=== PATIENT | female | born 1950 | race Caucasian/White ===

== ENCOUNTER 2020-08-04 12:38 | Emergency (ER) | payer OTHER ==
[2020-08-04 18:32] LABS: Absolute Lymphocytes (CBC) 1.3 K/uL (0.7-4.9); Basophils % 0.7 % (0-1.3); Hematocrit 45.8 % (36.0-45.0); Lymphocytes % 15.6 % (15.3-44.8); MPV 9.8 fL (7.6-11.3); RBC Red Blood Cell Count 5.09 M/uL (3.86-4.86)
[2020-08-04 18:53] LABS: Albumin 3.4 g/dL (3.4-5.0); Bilirubin Direct 0.2 mg/dL (0-0.2); Protein, Total 7.8 g/dL (6.4-8.2)
--- NOTE | 2020-08-04 20:57 | ER ---
Nurse's Notes [facility] Name: Vidya Colón Age: 70 yrs Sex: Female : 1950 Arrival Date: 08/04/2020 Time: 12:44 Bed 19 Private MD: Diagnosis: Groin Pain;Subacute L2 compression fracture Presentation: 08/04 12:45 Chief complaint: EMS states: "her son found her on the floor in front of her chair, jd3 unknown fall down town. no LOC. weakness in both legs. pain reported to both hips. son reports normal mentation. no hit to head.". Coronavirus screen: At this time, the client does not indicate any symptoms associated with coronavirus-19. Ebola Screen: Patient negative for fever greater than or equal to 101.5 degrees Fahrenheit, and additional compatible Ebola Virus Disease symptoms. Initial Sepsis Screen: Does the patient meet any 2 criteria? No. Patient's initial sepsis screen is negative. Does the patient have a suspected source of infection? No. Patient's initial sepsis screen is negative. Risk Assessment: Do you want to hurt yourself or someone else? Patient reports no desire to harm self or others. Onset of symptoms was August 04, 2020. 12:45 Method Of Arrival: EMS: [facility] jd3 12:45 Acuity: NITA 3 jd3 Historical: - Allergies: 12:50 Sulfa (Sulfonamide Antibiotics); jd3 - Home Meds: 12:50 amlodipine oral [Active]; duloxetine oral oral [Active]; Meclizine Oral [Active]; jd3 sotalol Oral [Active]; Warfarin Oral [Active]; - Immunization history:: Adult Immunizations unknown. - Social history:: Smoking status: unknown. Screenin:45 Abuse screen: Denies threats or abuse. Denies injuries from another. Tuberculosis bp screening: No symptoms or risk factors identified. Primary Survey: 12:53 NO uncontrolled hemorrhage observed. A: The patient is alert. Airway: patent. jd3 Breathing/Chest: Respiratory pattern: regular, Respiratory effort: spontaneous. Circulation: Skin color: pink, Skin temperature: warm. Disability Alert. Exposure/Environment: There is no evidence of uncontrolled external bleeding. No obvious injuries are noted at this time. Assessment: 17:45 General: Appears in no apparent distress. uncomfortable, Behavior is cooperative, bp appropriate for age, anxious, RECD PT VIA W/C FROM TRIAGE. Pain: Complains of pain in pelvis. Neuro: No deficits noted. EENT: No deficits noted. Cardiovascular: No deficits noted. Respiratory: No deficits noted. GI: No signs and/or symptoms were reported involving the gastrointestinal system. : No signs and/or symptoms were reported regarding the genitourinary system. Derm: No deficits noted. Musculoskeletal: Reports pain in pelvis. Vital Signs: 12:51 BP 158 / 94; Pulse 100; Resp 18 S; Temp 97.4(TE); Pulse Ox 98% on R/A; Pain 6/10; jd3 18:00 BP 159 / 98; Pulse 107; Resp 16; Pulse Ox 95% ; bp Indira Coma Score: 12:54 Eye Response: spontaneous(4). Verbal Response: oriented(5). Motor Response: obeys jd3 commands(6). Total: 15. Trauma Score (Adult): 12:54 Eye Response: spontaneous(1); Verbal Response: oriented(1); Motor Response: obeys jd3 commands(2); Systolic BP: > 89 mm Hg(4); Respiratory Rate: 10 to 29 per min(4); Indira Score: 15; Trauma Score: 12 ED Course: 12:44 Patient arrived in ED. jd3 12:48 Triage completed. jd3 12:52 Arm band placed on. jd3 17:42 Andrew Irby PA is PHCP. m 17:42 Colby Jarrell MD is Attending Physician. jmm 17:45 Patient has correct armband on for positive identification. Bed in low position. Call bp light in reach. Side rails up X2. 17:45 Patient maintains SpO2 saturation greater than 95% on room air. Thermoregulation: warm bp blanket given to patient. 17:47 Brian Walker, RN is Primary Nurse. bp 19:14 CT Abd/Pelvis - IV Contrast Only In Process Unspecified. EDMS 22:48 No provider procedures requiring assistance completed. IV discontinued, intact, ll2 bleeding controlled, No redness/swelling at site. Pressure dressing applied. Administered Medications: 21:00 Drug: morphine 2 mg Route: IVP; Site: right antecubital; ll2 21:00 Drug: Zofran (Ondansetron) 4 mg Route: IVP; Site: right antecubital; ll2 Outcome: 20:56 Discharge ordered by . mary jane 22:44 Patient left the ED. ll2 22:48 Discharged to home via wheelchair. ll2 22:48 Condition: stable 22:48 Discharge instructions given to patient, Instructed on discharge instructions, follow up and referral plans. medication usage, Demonstrated understanding of instructions, follow-up care, medications, Prescriptions given X 1. Signatures: Dispatcher [employer] EDMS Andrew Irby PA PA jmm Davies, Jonathon, RN RN jd3 Brian Walker RN RN bp Salome Wick RN RN ll2 Corrections: (The following items were deleted from the chart) 12:53 12:45 Chief complaint: EMS states: "her son found her on the floor in front of her jd3 chair, unknown fall down town. no LOC. weakness in both legs no pain reported. son reports normal mentation. no hit to head." j
--- NOTE | 2020-08-04 20:57 | EDPHYS ---
Physician Documentation [facility] Name: Vidya Colón Age: 70 yrs Sex: Female : 1950 Arrival Date: 08/04/2020 Time: 12:44 Bed 19 Private MD: ED Physician Colby Jarrell HPI: 08/04 18:01 This 70 yrs old Female presents to ER via EMS with complaints of Fall Injury, jmm General Weakness. 18:01 Details of fall: The patient fell from an upright position. Onset: The symptoms/episode jmm began/occurred acutely, today. Associated injuries: The patient sustained. Associated injuries: The patient sustained no obvious injury. This is a 70 year old female with no chronic medical conditions that presents to the ED with complaints of bilateral groin pain for the past 2 days. Denies vomiting, diarrhea, upper abdominal pain or back pain. Patient states she fell when her carpet slipped underneath her. Denies head injury or LOC on the fall. Historical: - Allergies: 12:50 Sulfa (Sulfonamide Antibiotics); jd3 - Home Meds: 12:50 amlodipine oral [Active]; duloxetine oral oral [Active]; Meclizine Oral [Active]; jd3 sotalol Oral [Active]; Warfarin Oral [Active]; - Immunization history:: Adult Immunizations unknown. - Social history:: Smoking status: unknown. ROS: 18:01 Constitutional: Negative for fever, chills, and weight loss, Cardiovascular: Negative jmm for chest pain, palpitations, and edema, Respiratory: Negative for shortness of breath, cough, wheezing, and pleuritic chest pain. 18:01 Abdomen/GI: Positive for abdominal pain. 18:01 All other systems are negative. Exam: 18:01 Constitutional: This is a well developed, well nourished patient who is awake, alert, jmm and in no acute distress. Head/Face: atraumatic. Eyes: EOMI, no conjunctival erythema appreciated ENT: Moist Mucus Membranes Neck: Trachea midline, Supple Chest/axilla: Normal chest wall appearance and motion. Cardiovascular: Regular rate and rhythm. No edema appreciated Respiratory: Normal respirations, no respiratory distress appreciated 18:01 Back: Normal ROM Skin: General appearance color normal MS/ Extremity: Moves all extremities, no obvious deformities appreciated, no edema noted to the lower extremities 18:01 Abdomen/GI: Inspection: abdomen appears normal, Bowel sounds: normal, Palpation: soft, mild abdominal tenderness, in the suprapubic area. 18:01 Neuro: Orientation: is normal, Mentation: is normal, Memory: is normal. 18:01 Psych: Behavior/mood is pleasant, cooperative. Vital Signs: 12:51 BP 158 / 94; Pulse 100; Resp 18 S; Temp 97.4(TE); Pulse Ox 98% on R/A; Pain 6/10; jd3 18:00 BP 159 / 98; Pulse 107; Resp 16; Pulse Ox 95% ; bp Indira Coma Score: 12:54 Eye Response: spontaneous(4). Verbal Response: oriented(5). Motor Response: obeys jd3 commands(6). Total: 15. Trauma Score (Adult): 12:54 Eye Response: spontaneous(1); Verbal Response: oriented(1); Motor Response: obeys jd3 commands(2); Systolic BP: > 89 mm Hg(4); Respiratory Rate: 10 to 29 per min(4); Elton Score: 15; Trauma Score: 12 MDM: 17:42 Patient medically screened. lucius 20:54 Data reviewed: vital signs, nurses notes. Counseling: I had a detailed discussion with mary jane the patient and/or guardian regarding: the historical points, exam findings, and any diagnostic results supporting the discharge/admit diagnosis, lab results, radiology results, the need for outpatient follow up, to return to the emergency department if symptoms worsen or persist or if there are any questions or concerns that arise at home. ED course: Patient is alert and non toxic in appearance in the ED. No signs of resp distress. Patient is advised to follow up with pcp and otherwise given strict return precautions. . 08/04 17:51 Order name: Basic Metabolic Panel; Complete [facility]: [facility] 08/04 17:51 Order name: CBC with Diff; Complete Time: 18:38 [facility] 08/04 17:51 Order name: Hepatic Function; Complete [facility]: 19:02 [facility] 08/04 17:51 Order name: Lipase; Complete Time: 19:02 [facility] 08/04 20:41 Order name: Urine Dipstick--Ancillary (enter results) tt3 08/04 20:42 Order name: Urine Dipstick-Ancillary; Complete Time: 22:18 EDMT 08/04 17:51 Order name: IV Saline Lock; Complete Time: 19:06 [facility] 08/04 17:51 Order name: Labs collected and sent; Complete Time: 19: [facility] 08/04 17:52 Order name: CT Abd/Pelvis - IV Contrast Only [facility] Administered Medications: 21:00 Drug: morphine 2 mg Route: IVP; Site: right antecubital; ll2 21:00 Drug: Zofran (Ondansetron) 4 mg Route: IVP; Site: right antecubital; ll2 Disposition: 08/04/20 20:56 Discharged to Home. Impression: Groin Pain, Subacute L2 compression fracture. - Condition is Stable. - Discharge Instructions: Vertebral Fracture. - Prescriptions for orphenadrine citrate 100 mg Oral Tablet Sustained Release - take 1 tablet by ORAL route 2 times per day As needed; 20 tablet. - Medication Reconciliation Form, Thank You Letter, Antibiotic Education, Prescription Opioid Use form. - Follow up: Private Physician; When: 2 - 3 days; Reason: Recheck today's complaints, Continuance of care, Re-evaluation by your physician. Addendum: 08/06/2020 06:56 Co-signature as Attending Physician, Colby Jarrell MD I agree with the assessment and c barrera plan of care. Signatures: Dispatcher [employer] [facility] Colby aJrrell MD MD cha Mickail, Joel, PA PA jmm Davies, Jonathon RN RN jd3 Salome Wick RN RN ll2 Corrections: (The following items were deleted from the chart) 08/04 22:44 20:56 08/04/2020 20:56 Discharged to Home. Impression: Groin Pain; Subacute L2 ll2 compression fracture. Condition is Stable. Forms are Medication Reconciliation Form, Thank You Letter, Antibiotic Education, Prescription Opioid Use. Follow up: Private Physician; When: 2 - 3 days; Reason: Recheck today's complaints, Continuance of care, Re-evaluation by your physician. [facility]
[2020-08-04] MEDS ORDERED: MORPHINE 2 MG/ML SYR ONE (21:45)
[2020-08-04] MEDS ORDERED: ONDANSETRON 4 MG/2 ML VIAL ONE (21:45)
[2020-08-04 22:05] LABS: Urine Blood NEGATIVE (NEG); Urine Glucose NEGATIVE (NEG); Urine Protein NEGATIVE (NEG); Urine Specific Gravity 1.015 (1.005-1.030)
[2020-08-04 23:03] VITALS: BP 159/98; O2SAT 95
[2020-08-04 23:05] VITALS: TEMP 97.4
--- NOTE | 2020-08-05 13:14 | RAD REPORT ---
EXAM DESCRIPTION: CT Abdomen & Pelvis CLINICAL HISTORY: Abdominal pain. COMPARISON: None. TECHNIQUE: Computed axial tomography of the abdomen and pelvis obtained. 100 mL Isovue 300 was administered intravenously. Oral contrast was not requested which limits evaluation. This exam was performed according to our departmental dose-optimization program, which includes automated exposure control, adjustment of the mA and/or kV according to patient size and/or use of iterative reconstruction technique. FINDINGS: Cirrhotic liver is suspected. A small hepatic cyst is present. Moderate hiatal hernia. The spleen and pancreas are unremarkable. Mild fullness of the adrenal glands is probably benign. Small renal cysts. Fibroid uterus. Some of the fibroids contain calcifications. There is no evidence of diverticulitis. Minimal compression of L1 vertebral body is probably chronic. Mild to moderate compression of L2 vertebral body. The compression is estimated to be 30%. This may be subacute. Mild anterior subluxation of L4 on L5. A small umbilical hernia contains fat. IMPRESSION: 1. Mild to moderate compression fracture L2 vertebral body may be subacute. 2. If clinically indicated further evaluation with MRI could be obtained.
== END 2020-08-04 22:44 | disposition home or self-care (01) ==
LOC: ER 12:38
DX: M48.56XA Collapsed vertebra, not elsewhere classified, lumbar region, initial encounter for fracture (principal); R10.31 Right lower quadrant pain; R10.32 Left lower quadrant pain
CPT/HCPCS: 85025; 80048; 36415; 80076; 81003; 83690; 74177; 96375; 96374; 99284; Q9967; J2270; J2405

== ENCOUNTER 2020-12-16 12:47 | Emergency (ER) | payer OTHER ==
--- OUTSIDE RECORDS SUMMARY | 2020-12-16 12:54 | XMS REPORT | Continuity of Care Document ---
:1950 Author Organization [facility] t Address [address] [place] [address] Care Team Providers Name Role Phone Unavailable Unavailable Unavailable Problems This patient has no known problems. Allergies, Adverse Reactions, Alerts Allergy Allergy Status Severity Reaction(s) Onset Inactive Treating Comm ents Source Name Type Date Date Clinician Hydrocod Adverse Active Info Not [facility] Medications Ordered Filled Start Stop Current Ordering Indication Dosage Frequency Signature Comments Components Source Medication Medication Date Date Medication? Clinician (SIG) Name Name [facility] Yes Na Rivera [address] [facility] Flonase Flonase Yes Na Rivera [address] [facility] Coumadin Coumadin Yes Na Rivera [address] [facility] Meclizine Meclizine Yes Na Rivera [address] [facility] HCl HCl as needed [facility] Coumadin Coumadin Yes Na Rivera [address] [facility] Cymbalta Cymbalta Yes Na Rivera [address] [facility] Betapace Betapace Yes Na Rivera [address] [facility] Coconut Oil Coconut Oil Yes Na Rivera as [facility] directed [facility] Yes Na Rivera [address] [facility] Montelukast Montelukast Yes Na Rivera [address] [facility] [facility] Sodium Sodium in the [facility] Mirtazapine Mirtazapine Yes Na Rivera [address] [facility] Immunizations Ordered Filled Immunization Date Status Comments Sour e Immunization Name Name Ralph Rosas 2018-05-[address] [facility] [facility] Procedures This patient has no known procedures. Encounters Start End Encounter Admission Attending Care Care Encounter Source Date/Time Date/Time Type Type Clinicians Facility Department ID 2020-11-04 2020-11-04 Outpatient [facility] [id number] [facility] - [facility] Outpat[facility] Clinics 2020-09-02 2020-09-02 [facility] [id number] [facility] 2020-08-17 2020-08-17 [facility] [id number] [facility] - [facility] Outpat[facility] Clinics 2020-02-04 2020-02-04 [facility] [id number] 14:16:00 14:16:00 [facility] [place] [facility] Medicine Outpati ent Clinics 2019-09-24 2019-09-24 [facility] [id number] 15:00:00 15:00:00 t [facility] Medicine Medicine Outpati ent Clinics 2019-04-15 2019-04-15 [facility] [id number] 14:40:00 14:40:00 t [place] [facility] Medicine Medicine Outpati ent Clinics 2018-11-22 2018-11-22 [facility] [id number] 13:40:00 13:40:00 t This Week In [facility] Medicine Outpati ent Clinics 2018-08-22 2018-08-22 [facility] [id number] 14:30:00 14:30:00 t This Week In [facility] 2018-05-24 2018-05-24 [facility] [id number] 14:30:00 14:30:00 This Week In [facility] 2018-02-22 2018-02-22 [facility] [id number] 08:45:00 08:45:00 This Week In [facility] Clinics Results This patient has no known results.
[2020-12-16 14:23] LABS: Urine Blood Negative (Negative); Urine Glucose Negative (Negative); Urine Protein Trace (Negative); Urine pH 6.5 (5.0-7.0)
[2020-12-16 14:40] LABS: Absolute Lymphocytes (CBC) 1.5 K/uL (0.7-4.9); Basophils % 1.4 % (0-1.3); Hematocrit 39.7 % (36.0-45.0); Lymphocytes % 30.2 % (15.3-44.8); MPV 9.2 fL (7.6-11.3); RBC Red Blood Cell Count 4.52 M/uL (3.86-4.86)
[2020-12-16 14:41] LABS: Protime INR 2.7
[2020-12-16 14:42] LABS: Urine Bacteria <20 /HPF (<20); Urine Mucus 1+ /HPF (NONE SEEN); Urine RBC <5 /HPF (NONE SEEN)
[2020-12-16 14:54] LABS: ALT/SGPT 19 U/L (12-78); AST/SGOT 17 U/L (15-37); Albumin 3.6 g/dL (3.4-5.0); Alkaline Phosphatase 67 U/L (45-117); BUN Blood Urea Nitrogen 15 mg/dL (7-18); Bicarbonate 30 mmol/L (21-32); Bilirubin Direct 0.2 mg/dL (0-0.2); Bilirubin Total 0.6 mg/dL (0.2-1.0); Glucose Level 97 mg/dL (74-106); Magnesium 1.9 mg/dL (1.8-2.4); NT PRO-BNP 919 pg/mL (<125); Protein, Total 7.5 g/dL (6.4-8.2); Sodium Level 142 mmol/L (136-145); Troponin (Emerg Dept Use Only) < 0.02 ng/mL (0.0-0.045)
--- NOTE | 2020-12-16 16:09 | RAD REPORT ---
EXAM DESCRIPTION: CT - Head Brain Wo Cont - 12/16/2020 3:20 pm CLINICAL HISTORY: CONFUSED, hypertension COMPARISON: No comparisons TECHNIQUE: Axial 5 mm thick images of the head were obtained without IV contrast. All CT scans are performed using dose optimization technique as appropriate and may include automated exposure control or mA/KV adjustment according to patient size. FINDINGS: No intracranial hemorrhage, mass, edema or shift of mid-line structures. No acute cortical based infarction. Moderate severity atrophy is present with ventricles in proportion. Chronic ischem ic changes are minimal. No abnormal extra-axial fluid collections. Ventricles are normal. Mastoid air cells and visualized portions of the paranasal sinuses are clear. No acute bony findings. IMPRESSION: No hemorrhage, mass or acute intracranial finding identifiable. Moderate severity atrophy with ventricles in proportion to volume loss.
--- NOTE | 2020-12-16 16:18 | RAD REPORT ---
EXAM DESCRIPTION: RAD - Chest Single View - 12/16/2020 2:28 pm CLINICAL HISTORY: SWELLING COMPARISON: Portable July 2014 TECHNIQUE: AP portable chest image was obtained 12/16/2020 2:28 pm . FINDINGS: Chronic interstitial lung disease is present. No peripheral mass or consolidation. Heart s ize and vasculature are within range of normal. Trachea is midline. No measurable pleural effusion an d no pneumothorax. No acute bony abnormality seen. No acute aortic findings suspected. IMPRESSION: Chronic interstitial lung disease with no focal lung parenchymal process. No significant failure or volume overload.
[2020-12-16] MEDS ORDERED: NA CHLORIDE 0.9% 500 ML ONE (17:25)
[2020-12-16] MEDS ORDERED: POTASSIUM CL SA 10 MEQ TAB PO ONE (17:25)
--- NOTE | 2020-12-16 17:30 | EDPHYS ---
Physician Documentation [facility] Name: Vidya Colón Age: 70 yrs Sex: Female : 1950 Arrival Date: 12/16/2020 Time: 12:48 Bed 19 Private MD: ED Physician Josh Romero HPI: 12/16 17:04 This 70 yrs old Female presents to ER via Wheelchair with complaints of kb Urinary Problem, Dehydration, Foreign Body In Ear. 17:05 Daughter states pt has been hearing voices for over a week so she was concerned about kb her. States she brought her in to make sure she wasn't dehydrated or have a UTI. Also reports bilateral lower extremity edema for a while. Pt states she feels like something is in her right ear as well. Pt states she has been hearing her nephew's voice in her house. Pt lives alone in house with no air conditioner. . Onset: The symptoms/episode began/occurred 1 week(s) ago. Severity of symptoms: At their worst the symptoms were moderate in the emergency department the symptoms are unchanged. The patient has not experienced similar symptoms in the past. The patient has not recently seen a physician. Historical: - Allergies: 13:04 Sulfa (Sulfonamide Antibiotics); ss 13:04 Hydrocodone; ss - Home Meds: 13:04 sotalol Oral [Active]; Warfarin Oral [Active]; amlodipine oral [Active]; duloxetine ss Oral [Active]; Meclizine Oral [Active]; - PMHx: 13:04 Atrial fibrillation; Hypertensive disorder; Vertigo; ss - Immunization history:: Adult Immunizations up to date, Client reports receiving the 1st dose of the Covid vaccine. - Social history:: Smoking status: Patient denies any tobacco usage or history of. ROS: 16:34 Constitutional: Negative for fever, chills, and weight loss. kb 16:34 MS/extremity: Positive for swelling, of the right leg and left leg. 16:34 Psych: Positive for auditory hallucinations, Negative for anxiety, depression, drug dependence, alcohol dependence, visual hallucinations, homicidal ideation, insomnia, suicide gesture, suicidal ideation. 16:34 All other systems are negative. 17:04 ENT: Positive for foreign body sensation. kb Exam: 15:39 ECG was reviewed by the Attending Physician. kb 16:36 Constitutional: This is a well developed, well nourished patient who is awake, alert, kb and in no acute distress. Head/Face: Normocephalic, atraumatic. ENT: Moist Mucous membranes Cardiovascular: Regular rate and rhythm with a normal S1 and S2. No gallops, murmurs, or rubs. No pulse deficits. Respiratory: Respirations even and unlabored. No increased work of breathing, no retractions or nasal flaring. Abdomen/GI: Soft, non-tender. No distention Skin: Warm, dry with normal turgor. Normal color. MS/ Extremity: Pulses equal, no cyanosis. Neurovascular intact. Full, normal range of motion. Neuro: Awake and alert, GCS 15, oriented to person, place, time, and situation. Moves all extremities. Normal gait. Psych: Awake, alert, with orientation to person, place and time. Behavior, mood, and affect are within normal limits. 16:36 Musculoskeletal/extremity: Extremities: grossly normal except: noted in the left leg and right leg: swelling, ROM: no acute changes, Circulation is intact in all extremities. Sensation intact. Weight bearing: can bear weight with assistance only, uses cane. 17:07 ENT: Ear canal(s): cerumen impaction, that is moderate, that is hard, occluding the kb right ear canal. Vital Signs: 13:00 BP 127 / 98; Pulse 100; Resp 16; Temp 98.0(TE); Pulse Ox 99% on R/A; Weight 81.65 kg; ss Height 5 ft. 8 in. (172.72 cm); Pain 0/10; 15:05 BP 144 / 98; Pulse 85; Resp 18; Pulse Ox 100% ; Pain 0/10; ld1 16:00 BP 156 / 99; Pulse 76; Resp 18; Pulse Ox 100% ; ld1 17:31 BP 145 / 88; Pulse 79; Resp 17; Pulse Ox 100% on R/A; ld1 13:00 Body Mass Index 27.37 (81.65 kg, 172.72 cm) ss MDM: 13:35 Patient medically screened. kb 16:37 Data reviewed: vital signs, nurses notes. Data interpreted: Pulse oximetry: on room air kb is 100 %. Interpretation: normal. 17:04 Counseling: I had a detailed discussion with the patient and/or guardian regarding: the historical points, exam findings, and any diagnostic results supporting the discharge/admit diagnosis, lab results, radiology results, the need for outpatient follow up, a family practitioner, to return to the emergency department if symptoms worsen or persist or if there are any questions or concerns that arise at home. 17:04 Data reviewed: I have discussed the patient's presentation/case with the attending Emergency Department Physician;. 12/16 13:51 Order name: Basic Metabolic Panel 12/16 13:51 Order name: CBC with Diff 12/16 13:51 Order name: LFT's 12/16 13:51 Order name: Magnesium 12/16 13:51 Order name: NT PRO-BNP 12/16 13:51 Order name: PT-INR; Complete Time: 14:53 kb 12/16 13:51 Order name: Troponin (emerg Dept Use Only); Complete Time: 14:56 kb 12/16 13:51 Order name: Urine Microscopic Only; Complete Time: 14:44 kb 12/16 13:52 Order name: Basic Metabolic Panel; Complete Time: 14:56 EDMS 12/16 13:52 Order name: CBC with Automated Diff; Complete Time: 14:44 EDMS 12/16 13:52 Order name: Liver (Hepatic) Function; Complete Time: 14:56 EDMS 12/16 13:52 Order name: Magnesium; Complete Time: 14:56 EDMS 12/16 13:52 Order name: NT PRO-BNP; Complete Time: 14:56 EDMS 12/16 14:22 Order name: Urine Dipstick-Ancillary; Complete Time: 14:24 EDMS 12/16 13:51 Order name: XRAY Chest (1 view); Complete Time: 16:20 kb 12/16 13:51 Order name: EKG; Complete Time: 13:52 kb 12/16 13:51 Order name: Cardiac monitoring; Complete Time: 14:27 kb 12/16 13:51 Order name: EKG - Nurse/Tech; Complete Time: 14:59 kb 12/16 13:51 Order name: IV Saline Lock; Complete Time: 14:26 kb 12/16 13:51 Order name: Labs collected and sent; Complete Time: 14:26 kb 12/16 13:51 Order name: O2 Per Protocol; Complete Time: 14:26 kb 12/16 13:51 Order name: O2 Sat Monitoring; Complete Time: 14:26 kb 12/16 13:51 Order name: Urine Dipstick-Ancillary (obtain specimen); Complete Time: 14:26 kb 12/16 14:56 Order name: CT Head Brain wo Cont; Complete Time: 16:12 kb 12/16 16:22 Order name: US Extremity Venous W Compression Ede kb EC:39 Rate is 83 beats/min. Rhythm is irregularly irregular. QRS [place] is Normal. QRS interval kb is normal at 88 msec. QT interval is normal at 412 msec. Administered Medications: 17:16 Drug: NS 0.9% 500 ml Route: IV; Rate: bolus; Site: right antecubital; ld1 21:41 Follow up: Response: No adverse reaction; IV Status: Completed infusion ld1 17:16 Drug: Potassium Chloride 40 mEq Route: PO; ld1 21:41 Follow up: Response: No adverse reaction ld1 Disposition: 12/17 08:40 Co-signature as Attending Physician, Josh Romero MD I agree with the assessment and kdr plan of care. Disposition Summary: 12/16/20 17:28 Discharge Ordered Location: Home kb Condition: Stable kb Diagnosis - Edema, unspecified kb - Impacted cerumen, right ear kb - Hypokalemia kb Followup: kb - With: Emergency Department - When: As needed - Reason: Worsening of condition Followup: kb - With: Private Physician - When: 2 - 3 days - Reason: Recheck today's complaints, Continuance of care, Re-evaluation by your physician Discharge Instructions: - Discharge Summary Sheet kb - Earwax Buildup, Adult kb - Peripheral Edema kb Forms: - Medication Reconciliation Form kb - Thank You Letter kb - Antibiotic Education kb - Prescription Opioid Use kb Signatures: Dispatcher [employer] EDJamila Ruano, PROJECT MANAGER RETAIL-C HERNESTO-Josh Parry MD MD kdr Tyra Arzate RN RN ss Sandra Vidales RN RN ld1 Corrections: (The following items were deleted from the chart) 12/16 13:06 13:04 Allergies: Hydrocodone-Acetaminophen; ss ss
--- NOTE | 2020-12-16 17:30 | ER ---
Nurse's Notes [facility] Name: Vidya Colón Age: 70 yrs Sex: Female : 1950 Arrival Date: 12/16/2020 Time: 12:48 Bed 19 Private MD: Diagnosis: Edema, unspecified;Impacted cerumen, right ear;Hypokalemia Presentation: 12/16 13:00 Chief complaint: Patient's son or daughter states: Sister in law states "I'm concerned ss she may have a UTI. When I checked her BP at the house it was 142/102 with a pulse of 101. Her feet are swelling and her ankles are as well. I'm just concerned." Pt states, "I've got something in my ear (pointing to R ear) and now I can't hear as well.". Coronavirus screen: Client denies travel out of the [place] in the last 14 days. Ebola Screen: Patient denies exposure to infectious person. Patient denies travel to an Ebola-affected area in the 21 days before illness onset. Initial Sepsis Screen: Does the patient meet any 2 criteria? No. Patient's initial sepsis screen is negative. Does the patient have a suspected source of infection? No. Patient's initial sepsis screen is negative. Risk Assessment: Do you want to hurt yourself or someone else? Patient reports no desire to harm self or others. Onset of symptoms is unknown. 13:00 Method Of Arrival: Wheelchair ss 13:00 Acuity: NITA 3 ss Historical: - Allergies: 13:04 Sulfa (Sulfonamide Antibiotics); ss 13:04 Hydrocodone; ss - Home Meds: 13:04 sotalol Oral [Active]; Warfarin Oral [Active]; amlodipine oral [Active]; duloxetine ss Oral [Active]; Meclizine Oral [Active]; - PMHx: 13:04 Atrial fibrillation; Hypertensive disorder; Vertigo; ss - Immunization history:: Adult Immunizations up to date, Client reports receiving the 1st dose of the Covid vaccine. - Social history:: Smoking status: Patient denies any tobacco usage or history of. Screenin:00 Abuse screen: Denies threats or abuse. Denies injuries from another. Nutritional ld1 screening: No deficits noted. Tuberculosis screening: No symptoms or risk factors identified. Fall Risk None identified. Assessment: 14:00 Reassessment: See triage assessment. ld1 14:00 Pain: Denies pain. ld1 15:05 Reassessment: Patient appears in no apparent distress at this time. Patient is alert, ld1 oriented x 3, equal unlabored respirations, skin warm/dry/pink. Patient denies pain at this time. 16:30 Reassessment: Patient appears in no apparent distress at this time. Patient and/or ld1 family updated on plan of care and expected duration. Pain level reassessed. Patient is alert, oriented x 3, equal unlabored respirations, skin warm/dry/pink. Patient denies pain at this time. Vital Signs: 13:00 BP 127 / 98; Pulse 100; Resp 16; Temp 98.0(TE); Pulse Ox 99% on R/A; Weight 81.65 kg; ss Height 5 ft. 8 in. (172.72 cm); Pain 0/10; 15:05 BP 144 / 98; Pulse 85; Resp 18; Pulse Ox 100% ; Pain 0/10; ld1 16:00 BP 156 / 99; Pulse 76; Resp 18; Pulse Ox 100% ; ld1 17:31 BP 145 / 88; Pulse 79; Resp 17; Pulse Ox 100% on R/A; ld1 13:00 Body Mass Index 27.37 (81.65 kg, 172.72 cm) ED Course: 12:48 Patient arrived in ED. as 13:03 Triage completed. ss 13:04 Arm band placed on right wrist. ss 13:31 Sandra Vidales, JOSE MIGUEL is Primary Nurse. ld1 13:35 Jamila Briseno FNP-C is [facility]. kb 13:35 Josh Romero MD is Attending Physician. kb 14:00 No provider procedures requiring assistance completed. Inserted saline lock: 20 gauge ld1 in left antecubital area, using aseptic technique. Blood collected. 14:24 Initial lab(s) drawn, by ED staff, Urine collected: clean catch specimen, clear, EKG mh5 done, by ED staff, reviewed by Josh Romero MD. 14:25 Patient has correct armband on for positive identification. Placed in gown. Bed in low mh5 position. Call light in reach. Side rails up X 1. Adult w/ patient. Warm blanket given. Pillow given. trust vault clerk on. Pulse ox on. NIBP on. 14:26 Urine Microscopic Only Sent. ld1 14:28 XRAY Chest (1 view) In Process Unspecified. EDMS 15:19 CT Head Brain wo Cont In Process Unspecified. EDMS 17:30 US Extremity Venous W Compression Ede In Process Unspecified. EDMS 17:49 IV discontinued, intact, bleeding controlled, No redness/swelling at site. Pressure ss dressing applied. Administered Medications: 17:16 Drug: NS 0.9% 500 ml Route: IV; Rate: bolus; Site: right antecubital; ld1 21:41 Follow up: Response: No adverse reaction; IV Status: Completed infusion ld1 17:16 Drug: Potassium Chloride 40 mEq Route: PO; ld1 21:41 Follow up: Response: No adverse reaction ld1 Outcome: 17:28 Discharge ordered by MD. kb 17:49 Discharged to home via wheelchair, with family. ss 17:49 Condition: good 17:49 Discharge instructions given to patient, family, Instructed on discharge instructions, follow up and referral plans. Demonstrated understanding of instructions, follow-up care. 17:50 Patient left the ED. Signatures: Dispatcher [employer] EDMS Jamila Briseno, COMPENSATION CONSULTING MANAGER-C HERNESTO-Maria Esther Maher Shelby, RN RN Felicitas Plasencia [facility] Sandra Vidales RN RN ld1 Corrections: (The following items were deleted from the chart) 13:06 13:04 Allergies: Hydrocodone-Acetaminophen; ss ss
[2020-12-16 17:56] VITALS: TEMP 98
[2020-12-16 17:57] VITALS: O2SAT 100
[2020-12-16 18:01] VITALS: BP 145/88
--- NOTE | 2020-12-16 18:02 | RAD REPORT ---
EXAM DESCRIPTION: US - Extrem Venous W Compress Ede - 12/16/2020 5:30 pm CLINICAL HISTORY: SWELLING, bilateral leg pain COMPARISON: None. TECHNIQUE: Real-time sonographic evaluation of the bilateral lower extremity common femoral, superfi cial femoral, popliteal and posterior tibial veins was performed. FINDINGS: Normal compressibility, flow augmentation, phasic flow and spontaneous flow are identified in the left and right lower extremity common femoral, superficial femoral, popliteal and posterior t ibial veins. No intraluminal filling defects seen. IMPRESSION: No DVT in either lower extremity.
== END 2020-12-16 17:50 | disposition home or self-care (01) ==
LOC: ER 12:47
DX: H61.21 Impacted cerumen, right ear (principal); E87.6 Hypokalemia; I10 Essential (primary) hypertension; I48.91 Unspecified atrial fibrillation; Z79.01 Long term (current) use of anticoagulants; Z88.2 Allergy status to sulfonamides; Z88.5 Allergy status to narcotic agent
CPT/HCPCS: 85025; 80048; 36415; 83735; 85610; 80076; 84484; 83880; 70450; 71045; 93970; J7040; 81003; 81015; 93005

== ENCOUNTER 2021-01-01 22:21 | Observation (INO) | payer OTHER ==
--- OUTSIDE RECORDS SUMMARY | 2021-01-01 22:24 | XMS REPORT | Continuity of Care Document ---
:1950 Author Organization [facility] t Address [address] [place] [address] Care Team Providers Name Role Phone Unavailable [...] Date Date Medication? Clinician (SIG) Name Name Suhail Jang Yes Na Rivera 1 tablet [facility] Norvasc Yes Na Rivera [address] [facility] [address] [facility] Sodium Sodium in the [facility] Mirtazapine Mirtazapine Yes Na Rivera [address] [facility] bed[facility] Immunizations Ordered Filled Immunization Date Status Comments Sour e Immunization Name Name Ralph Rosas 2018-05-[address] [facility] Procedures This patient has no known procedures. Encounters Start End Encounter Admission Attending Care Care Encounter Source Date/Time Date/Time Type Type Clinicians Facility Department ID 2020-11-04 2020-11-04 Outpatient [facility] [id number] Clinics 2020-09-02 2020-09-02 Outpatient [facility] [id number] [facility] 2020-08-17 2020-08-17 Out[facility] [id number] [facility] Clin[facility] 2020-02-04 2020-02-04 [facility] [id number] 14:16:00 14:16:00 [facility] Medicine Outpat[facility] ent Clinics 2019-09-24 2019-09-24 [facility] [id number] [address] 15:00[facility]00 15:00:00 [facility] l Medicine Outpati ent Clinics 2019-04-15 2019-04-15 [facility] [id number] 14[facility]40:00 14:40:00 t [employer] [facility] l Medicine Outpati ent Clinics 2018-11-22 2018-11-22 [facility] [id number] 13:40:00 13:40:00 [facility] Medicine l Medicine Outpati ent Clinics 2018-08-22 2018-08-22 [facility] [id number] 14:30:00 14:30:00 t [employer] [facility] 2018-05-24 2018-05-24 [facility] [id number] 14:30:00 14:30:00 t [employer] [facility] 2018-02-22 2018-02-22 [facility] [id number] 08:45:00 08:45:00 [employer] [facility] ent Clinics Results This patient has no known results.
[2021-01-02 01:25] LABS: Absolute Lymphocytes (CBC) 1.3 K/uL (0.7-4.9); Basophils % 0.8 % (0-1.3); Hematocrit 42.4 % (36.0-45.0); MPV 8.7 fL (7.6-11.3); Protime INR 3.3; RBC Red Blood Cell Count 4.72 M/uL (3.86-4.86)
[2021-01-02 01:38] LABS: Urine Blood Negative (Negative); Urine Glucose Negative (Negative); Urine Protein Negative (Negative)
[2021-01-02 01:39] LABS: ALT/SGPT 22 U/L (12-78); AST/SGOT 23 U/L (15-37); Albumin 4.1 g/dL (3.4-5.0); Alkaline Phosphatase 71 U/L (45-117); BUN Blood Urea Nitrogen 20 mg/dL (7-18); Bicarbonate 29 mmol/L (21-32); Bilirubin Direct 0.2 mg/dL (0-0.2); Bilirubin Total 0.6 mg/dL (0.2-1.0); Glucose Level 105 mg/dL (74-106); Magnesium 1.8 mg/dL (1.8-2.4); NT PRO-BNP 975 pg/mL (<125); Potassium 3.2 mmol/L (3.5-5.1); Protein, Total 8.2 g/dL (6.4-8.2); Sodium Level 141 mmol/L (136-145); Troponin (Emerg Dept Use Only) < 0.02 ng/mL (0.0-0.045)
[2021-01-02] MEDS ORDERED: POTASSIUM CL SA 10 MEQ TAB PO ONE (03:19)
[2021-01-02] MEDS ORDERED: NA CHLORIDE 0.9% 500 ML ONE (03:19)
--- NOTE | 2021-01-02 03:28 | ER ---
Nurse's Notes [facility] Name: Vidya Colón Age: 70 yrs Sex: Female : 1950 Arrival Date: 01/01/2021 Time: 22:34 Bed 18 Private MD: Diagnosis: Dizziness and giddiness;Generalized Weakness Presentation: 01/01 22:34 Chief complaint: EMS states: they were toned out for report of pt with weakness, bb diarrhea, dizziness for 2 or 3 days. Coronavirus screen: At this time, the client does not indicate any symptoms associated with coronavirus-19. Ebola Screen: No symptoms or risks identified at this time. 22:34 Method Of Arrival: EMS: [facility] bb 22:36 Initial Sepsis Screen: Does the patient meet any 2 criteria? No. Patient's initial bb sepsis screen is negative. Does the patient have a suspected source of infection? No. Patient's initial sepsis screen is negative. Risk Assessment: Do you want to hurt yourself or someone else? Patient reports no desire to harm self or others. Onset of symptoms is unknown. 22:36 Acuity: NITA 3 bb Historical: - Allergies: 22:36 HYDROCODONE; bb 22:36 Sulfa (Sulfonamide Antibiotics); bb - Home Meds: 22:36 amlodipine oral [Active]; sotalol Oral [Active]; Warfarin Oral [Active]; duloxetine bb Oral [Active]; Meclizine Oral [Active]; - PMHx: 22:36 Atrial fibrillation; Hypertensive disorder; Vertigo; bb - Immunization history:: Adult Immunizations unknown. - Social history:: Smoking status: unknown. Screenin:46 Abuse screen: Denies threats or abuse. Nutritional screening: No deficits noted. em Tuberculosis screening: No symptoms or risk factors identified. Fall Risk None identified. Assessment: 01/02 00:00 General: Appears in no apparent distress. comfortable, Behavior is calm, cooperative, em appropriate for age. Pain: Denies pain. Neuro: Level of Consciousness is awake, alert, obeys commands, Oriented to person, place, time, situation, Reports dizziness, weakness. Cardiovascular: Capillary refill < 3 seconds Patient's skin is warm and dry. Respiratory: Airway is patent Respiratory effort is even, unlabored, Respiratory pattern is regular, symmetrical. GI: Patient currently denies nausea, vomiting. Derm: Skin is intact, is healthy with good turgor, Skin is pink, warm \T\ dry. Musculoskeletal: Capillary refill < 3 seconds, Range of motion: intact in all extremities. 02:18 Reassessment: Patient appears in no apparent distress at this time. Patient and/or em family updated on plan of care and expected duration. Pain level reassessed. Patient is alert, oriented x 3, equal unlabored respirations, skin warm/dry/pink. 03:30 Reassessment: Patient appears in no apparent distress at this time. Patient and/or em family updated on plan of care and expected duration. Pain level reassessed. Patient is alert, oriented x 3, equal unlabored respirations, skin warm/dry/pink. Vital Signs: 01/01 22:34 BP 146 / 86; Pulse 86; Resp 16 S; Temp 97.9(TE); Pulse Ox 97% on R/A; Weight 81.65 kg bb (R); Height 5 ft. 8 in. (172.72 cm) (R); 01/02 01:42 BP 142 / 82; Pulse 92; Resp 16; Pulse Ox 99% on R/A; em 01/01 22:34 Body Mass Index 27.37 (81.65 kg, 172.72 cm) bb ED Course: 01/01 22:34 Patient arrived in ED. bb 22:36 Triage completed. bb 22:36 Arm band placed on Patient placed in waiting room, in a wheelchair, Patient notified of bb wait time. 23:41 Norm Clemons, RN is Primary Nurse. em 23:46 Patient has correct armband on for positive identification. Bed in low position. Call em light in reach. Side rails up X2. 23:56 Ilya Henderson MD is Attending Physician. 7 01/02 00:00 Maintain EMS IV. Dressing intact. Good blood return noted. Site clean \T\ dry. Gauge \T\ em site: 22 G. 00:46 XRAY Chest (1 view) In Process Unspecified. EDMS 01:24 CT Head Brain wo Cont In Process Unspecified. EDMS 03:24 Becki Purvis MD is Hospitalizing Provider. [facility] 04:25 No provider procedures requiring assistance completed. Patient admitted, IV remains in em place. Administered Medications: 03:04 Drug: Potassium Chloride 40 mEq Route: PO; em 04:39 Follow up: Response: No adverse reaction em 03:05 Drug: NS 0.9% 500 ml Route: IV; Rate: bolus; Site: right hand; em 04:39 Follow up: IV Status: Completed infusion; IV Intake: 500ml em Intake: 04:39 IV: 500ml; Total: 500ml. em Outcome: 00:00 Admitted to ER Hold. Please see [facility] for further documentation. em 00:00 Condition: stable 00:00 Instructed on the need for admit, Demonstrated understanding of instructions. 03:28 Decision to Hospitalize by Provider. mh7 15:11 Patient left the ED. [email or web address] Signatures: Dispatcher [employer] Norm Jnoes RN RN em Ballard, Brenda, RN RN bb Davies, Jonathon, RN RN jIlya Mcdonald MD MD [email or web address]
--- NOTE | 2021-01-02 03:29 | EDPHYS ---
Physician Documentation [facility] Name: Vidya Colón Age: 70 yrs Sex: Female : 1950 Arrival Date: 01/01/2021 Time: 22:34 Bed 18 Private MD: ED Physician Ilya Henderson HPI: 01/02 00:10 This 70 yrs old Female presents to ER via EMS with complaints of Weakness, mh7 Dizziness, Diarrhea. 00:10 The patient presents with dizziness, generalized weakness, feeling off balance. mh7 00:10 Onset: The symptoms/episode began/occurred 3 day(s) ago. Context: occurred at home, mh7 occurred while the patient was standing, just prior to the episode the patient experienced no apparent symptoms. Modifying factors: The symptoms are alleviated by nothing, the symptoms are aggravated by nothing. Associated signs and symptoms: Pertinent positives: numbness, tingling, diarrhea, Pertinent negatives: abdominal pain, agitation, blurred vision, chest pain, combativeness, confusion, diaphoresis, head injury, headache, nausea, palpitations, seizure, shortness of breath, syncope, vomiting. Severity of symptoms: At their worst the symptoms were moderate 2 day(s) ago, in the emergency department the symptoms are unchanged. Patient's baseline: Neuro: alert and fully oriented, Motor: no deficits, Ambulation: walks with assist only, uses walker, Speech: normal. Historical: - Allergies: 01/01 22:36 HYDROCODONE; bb 22:36 Sulfa (Sulfonamide Antibiotics); bb - Home Meds: 22:36 amlodipine oral [Active]; sotalol Oral [Active]; Warfarin Oral [Active]; duloxetine bb Oral [Active]; Meclizine Oral [Active]; - PMHx: 22:36 Atrial fibrillation; Hypertensive disorder; Vertigo; bb - Immunization history:: Adult Immunizations unknown. - Social history:: Smoking status: unknown. ROS: 01/02 00:10 Constitutional: Negative for fever, chills, and weight loss, Eyes: Negative for injury, mh7 pain, redness, and discharge, ENT: Negative for injury, pain, and discharge, Neck: Negative for injury, pain, and swelling, Cardiovascular: Negative for chest pain, palpitations, and edema, Respiratory: Negative for shortness of breath, cough, wheezing, and pleuritic chest pain, Back: Negative for injury and pain, : Negative for injury, bleeding, discharge, and swelling, MS/Extremity: Negative for injury and deformity, Skin: Negative for injury, rash, and discoloration, Psych: Negative for depression, anxiety, suicide ideation, homicidal ideation, and hallucinations, Allergy/Immunology: Negative for hives, rash, and allergies, Endocrine: Negative for neck swelling, polydipsia, polyuria, polyphagia, and marked weight changes, Hematologic/Lymphatic: Negative for swollen nodes, abnormal bleeding, and unusual bruising. Exam: 00:10 Constitutional: This is a well developed, well nourished patient who is awake, alert, mh7 and in no acute distress. Head/Face: Normocephalic, atraumatic. Eyes: Pupils equal round and reactive to light, extra-ocular motions intact. Lids and lashes normal. Conjunctiva and sclera are non-icteric and not injected. Cornea within normal limits. Periorbital areas with no swelling, redness, or edema. Neck: Trachea midline, no thyromegaly or masses palpated, and no cervical lymphadenopathy. Supple, full range of motion without nuchal rigidity, or vertebral point tenderness. No Meningismus. Chest/axilla: Normal chest wall appearance and motion. Nontender with no deformity. No lesions are appreciated. Cardiovascular: Regular rate and rhythm with a normal S1 and S2. No gallops, murmurs, or rubs. Normal PMI, no JVD. No pulse deficits. Respiratory: Lungs have equal breath sounds bilaterally, clear to auscultation and percussion. No rales, rhonchi or wheezes noted. No increased work of breathing, no retractions or nasal flaring. Abdomen/GI: Soft, non-tender, with normal bowel sounds. No distension or tympany. No guarding or rebound. No evidence of tenderness throughout. Back: No spinal tenderness. No costovertebral tenderness. Full range of motion. Skin: Warm, dry with normal turgor. Normal color with no rashes, no lesions, and no evidence of cellulitis. MS/ Extremity: Pulses equal, no cyanosis. Neurovascular intact. Full, normal range of motion. Psych: Awake, alert, with orientation to person, place and time. Behavior, mood, and affect are within normal limits. 00:10 Neuro: Orientation: is normal, Mentation: is normal, Memory: is normal, Cranial nerves: grossly normal, Cerebellar function: is grossly normal, Motor: is normal, Sensation: is normal, Gait: not tested. seizure activity, is not displayed by the patient, Abnormal movements: there are no abnormal movements. Vital Signs: 01/01 22:34 BP 146 / 86; Pulse 86; Resp 16 S; Temp 97.9(TE); Pulse Ox 97% on R/A; Weight 81.65 kg bb (R); Height 5 ft. 8 in. (172.72 cm) (R); 01/02 01:42 BP 142 / 82; Pulse 92; Resp 16; Pulse Ox 99% on R/A; em 01/01 22:34 Body Mass Index 27.37 (81.65 kg, 172.72 cm) bb MDM: 03:22 Differential diagnosis: cardiac arrhythmia, CVA, generalized weakness, hypovolemia, mh7 idiopathic dizziness, near-syncope, sepsis, syncope, TIA, vertigo. Data reviewed: vital signs, nurses notes, lab test result(s), cardiac enzymes, CBC, electrolytes, urinalysis, EKG, radiologic studies, CT scan, plain films. Data interpreted: Pulse oximetry: on room air is 99 %. Interpretation: normal. Counseling: I had a detailed discussion with the patient and/or guardian regarding: the historical points, exam findings, and any diagnostic results supporting the discharge/admit diagnosis, the presence of at least one elevated blood pressure reading (>120/80) during this emergency department visit, lab results, radiology results, the need for further work-up and treatment in the hospital. Response to treatment: the patient's symptoms have mildly improved after treatment. 03:28 Patient medically screened. [facility] 01/02 00:16 Order name: Basic Metabolic Panel; Complete Time: 02: [facility] 01/02 00:16 Order name: CBC with Diff; Complete Time: 02: [facility] 01/02 00:16 Order name: LFT's; Complete Time: 02: [facility] 01/02 00:16 Order name: Magnesium; Complete Time: 02: [facility] 01/02 00:16 Order name: NT PRO-BNP; Complete Time: 02: [facility] 01/02 00:16 Order name: PT-INR; Complete Time: 02:06 [facility] 01/02 00:16 Order name: Troponin (emerg Dept Use Only); Complete Time: 02:06 [facility] 01/02 01:37 Order name: Urine Dipstick-Ancillary; Complete Time: 02:06 [facility] 01/02 06:09 Order name: CORONAVIRUS [facility] 01/02 06:19 Order name: Comprehensive Metabolic Panel [facility] 01/02 06:19 Order name: Phosphorus [facility] 01/02 06:19 Order name: T4 Free [facility] 01/02 06:19 Order name: Magnesium [facility] 01/02 06:19 Order name: Thyroid Stimulating Hormone [facility] 01/02 00:16 Order name: XRAY Chest (1 view) [facility] 01/02 00:16 Order name: EKG; Complete Time: 00:17 [facility] 01/02 00:16 Order name: Cardiac monitoring; Complete Time: 01:12 [facility] 01/02 00:16 Order name: EKG - Nurse/Tech; Complete Time: 01:12 [facility] 01/02 00:16 Order name: IV Saline Lock; Complete Time: 00:17 [facility] 01/02 00:16 Order name: Labs collected and sent; Complete Time: 00:17 [facility] 01/02 00:16 Order name: O2 Per Protocol; Complete Time: 00:17 [facility] 01/02 00:16 Order name: O2 Sat Monitoring; Complete Time: 00:17 [facility] 01/02 00:16 Order name: CT Head Brain wo Cont [facility] 01/02 00:16 Order name: Urine Dipstick-Ancillary (obtain specimen); Complete Time: 01:37 [facility] 01/02 07:11 Order name: SARS-COV-2 RT PCR EDMO Administered Medications: 03:04 Drug: Potassium Chloride 40 mEq Route: PO; em 04:39 Follow up: Response: No adverse reaction em 03:05 Drug: NS 0.9% 500 ml Route: IV; Rate: bolus; Site: right hand; em 04:39 Follow up: IV Status: Completed infusion; IV Intake: 500ml em Disposition Summary: 01/02/21 03:28 Hospitalization Ordered Hospitalization Status: Observation [facility] Provider: Becki Purvis Debbie Condition: Stable [facility] Problem: new [facility] Symptoms: have improved [facility] Bed/Room Type: Standard [facility] Location: Telemetry/MedSurg (observation)(01/02/21 13:33) eb Room Assignment: 212(01/02/21 13:33) eb Diagnosis - Dizziness and giddiness mh7 - Generalized Weakness mh7 Forms: - Medication Reconciliation Form mh7 - SBAR form mh7 Signatures: Dispatcher [employer] EDNorm Ibrahim RN RN em Ballard, Brenda, RN RN bb Lasagna, Tonya, RN RN [facility] Anne Healy Maurice, MD MD 7 Corrections: (The following items were deleted from the chart) 00:37 00:34 The patient presents with dizziness, generalized weakness, mh7 mh7 03:58 03:28 Telemetry/MedSurg (observation) 7 tl1 03:58 03:28 mh7 tl1 13:33 03:58 [facility] ER HOLD tl1 eb 13:33 03:58 ERHOLD- tl1 eb
[2021-01-02] MEDS ORDERED: ACETAMINOPHEN 500 MG TAB PO PRN (04:13)
[2021-01-02] MEDS ORDERED: ONDANSETRON 4 MG/2 ML VIAL IV PRN (04:13)
--- NOTE | 2021-01-02 04:15 | P.HP ---
Certification for Inpatient Patient admitted to: Observation With expected LOS: <2 Midnights Patient will require the following post-hospital care: None Practitioner: I am a practitioner with admitting privileges, knowledge of patient current condition, hospital course, and medical plan of care. Services: Services provided to patient in accordance with Admission requirements found in Title 42 Section 412.3 of the Code of Federal Regulations <Palmer Sue - Last Filed: 01/02/21 04:09> Patient admitted to: Observation <Giorgio Vega - Last Filed: 01/02/21 16:31> Patient History Date of Service: 01/02/21 Reason for admission: weakness, recurrent falls History of Present Illness: Ms. Colón is a 70 yo F with afib on chronic anticoagulation and HTN here today with a few days of 'dizzy spells', tingling in her hands and feed and weakness. She says she fell in July and broke her back. In the time since then she stayed with family to recover and used a walker. When she returned home, she said she could not use a walker and instead has been using two canes. She says in the last 6 months she has fallen a 'couple dozen times'. She says she does not lose consciousness. She says usually she trips on something but sometimes just falls flat. Reports palpitations and numbness. Denies vision changes, night sweats, chills. K 3.2, BUN 20, GFR 59, BNP 975. Received bolus of fluids and potassium replacement in the ED. - Past Medical/Surgical History Diabetic: No -: meniers disease -: HTN -: afib -: hernia sx Psychosocial/ Personal History: lives alone - Social History Smoking Status: Never smoker Alcohol use: No CD- Drugs: No Caffeine use: Yes Place of Residence: Home <VikramPalmer S - Last Filed: 01/02/21 04:09> Date of Service: 01/02/21 Home medications list reviewed: Yes - Family History Family History: Reviewed- Non-Contributory <Giorgio Vega - Last Filed: 01/02/21 16:31> Allergies hydrocodone Adverse Reaction (Verified 08/11/14 19:56) Itching Home Medications: Acetaminophen [Tylenol Extra Strength] 500 mg PO Q6H PRN 01/02/21 RX: Amlodipine Besylate 5 mg PO DAILY 01/02/21 RX: Duloxetine HCl [Cymbalta] 30 mg PO DAILY 01/02/21 RX: Meclizine HCl 25 mg PO TID PRN 01/02/21 RX: Warfarin Sodium [Coumadin*] 4 mg PO DAILY 01/02/21 Sotalol HCl [Sotalol AF] 80 mg PO TID 01/02/21 Review of Systems General: Weakness Neurological: Weakness, Numbness, Incoordination <Palmer Sue - Last Filed: 01/02/21 04:09> Physical Examination - Physical Exam General: Alert, In no apparent distress, Cooperative HEENT: Atraumatic, PERRLA, Mucous membr. moist/pink, EOMI, Sclerae nonicteric Neck: Supple, 2+ carotid pulse no bruit, No LAD, Without JVD or thyroid abnormality Respiratory: Clear to auscultation bilaterally, Normal air movement Cardiovascular: Regular rate/rhythm, Normal S1 S2 Gastrointestinal: Normal bowel sounds Musculoskeletal: No tenderness Integumentary: No rashes Neurological: Normal speech, Normal tone, Cranial nerves 3-12 intact, Normal affect, Abnormal strength, Abnormal sensation Lymphatics: No axilla or inguinal lymphadenopathy - Studies Laboratory Data (last 24 hrs) 01/02/21 01:10: PT 38.4 H, INR 3.30 01/02/21 01:10: WBC 7.00, Hgb 14.3, Hct 42.4, Plt Count 262 01/02/21 01:10: Sodium 141, Potassium 3.2 L, BUN 20 H, Creatinine 0.94, Glucose 105, Magnesium 1.8, Total Bilirubin 0.6, AST 23, ALT 22, Alkaline Phosphatase 71 <Palmer Sue - Last Filed: 01/02/21 04:09> - Studies Laboratory Data (last 24 hrs) 01/02/21 01:10: PT 38.4 H, INR 3.30 01/02/21 01:10: WBC 7.00, Hgb 14.3, Hct 42.4, Plt Count 262 01/02/21 01:10: Sodium 141, Potassium 3.2 L, BUN 20 H, Creatinine 0.94, Glucose 105, Magnesium 1.8, Total Bilirubin 0.6, AST 23, ALT 22, Alkaline Phosphatase 71 <Giorgio Vega - Last Filed: 01/02/21 16:31> Assessment and Plan - Plan on telemetry, orthostatic vital signs pending PT, OT and social service consults pending reconcile and continue home medications potassium replacemnt protocol DVT ppx Discharge Plan: Home Plan to discharge in: 24 Hours - Advance Directives Does patient have a Living Will: No Does patient have a Durable POA for Healthcare: No - Code Status/Comfort Care Code Status Assessed: Yes (full code ) Critical Care: No Time Spent Managing Pts Care (In Minutes): 70 <Palmer Sue - Last Filed: 01/02/21 04:09> - Plan Diagnosis: Dizziness with history of Mnire's disease Chronic atrial fibrillation on anticoagulation therapy Hypertension We will have physical therapy/Occupational Therapy evaluate. Await andrea mmendations. Need to consider home health with physical therapy or skilled placement. Please see progress note for details <Giorgio Vega - Last Filed: 01/02/21 16:31>
--- NOTE | 2021-01-02 06:15 | P.PN ---
Subjective Date of Service: 01/02/21 Chief Complaint: weakness, recurrent falls Subjective: Doing well Physical Examination - Vital Signs Blood Pressure: 139/79 Pulse: 87 Respirations: 14 Pulse Ox (%): 98 - Studies Laboratory Data (last 24 hrs) 01/02/21 01:10: PT 38.4 H, INR 3.30 01/02/21 01:10: WBC 7.00, Hgb 14.3, Hct 42.4, Plt Count 262 01/02/21 01:10: Sodium 141, Potassium 3.2 L, BUN 20 H, Creatinine 0.94, Glucose 105, Magnesium 1.8, Total Bilirubin 0.6, AST 23, ALT 22, Alkaline Phosphatase 71 Assessment & Plan Discharge Plan: Home (Versus skilled placement) Plan to discharge in: 48 Hours Physician Review Additional Text: Physical exam: General: Alert, In no apparent distress, Cooperative HEENT: Atraumatic, PERRLA, Mucous membr. moist/pink, EOMI, Sclerae nonicteric Neck: Supple, 2+ carotid pulse no bruit, No LAD, Without JVD or thyroid abnormality Respiratory: Clear to auscultation bilaterally, Normal air movement Cardiovascular: Regular rate/rhythm, Normal S1 S2 Gastrointestinal: Normal bowel sounds Musculoskeletal: No tenderness Integumentary: No rashes Neurological: Normal speech, Normal tone, Cranial nerves 3-12 intact, Normal affect, Abnormal strength, Abnormal sensation Lymphatics: No axilla or inguinal lymphadenopathy Impression: Dizziness with history of Mnire's disease Chronic atrial fibrillation on anticoagulation therapy Hypertension Chronic pain Plan: Dizziness with history of Mnire's disease: Physical therapy to assess ambulation along with occupational therapy. Continue with meclizine as needed. Fall precaution in place. Need to determine if patient will require skilled placement versus home with home health. Patient at risk for fall. Will discuss with social service to assist. Chronic atrial fibrillation on anticoagulation therapy: Restart sotalol, Coumadin. Parameters in place. Hypertension: Restart Norvasc Chronic pain: Restart Cymbalta CODE STATUS: Full code DVT prophylaxis: Coumadin Advance care [id number] minutes: Awaiting recommendations from physical therapy. Skilled versus home with home health will be considered Time Spent Managing Pts Care (In Minutes): 55
[2021-01-02 06:19] LABS: Albumin 3.9 g/dL (3.4-5.0); Bilirubin Total 0.5 mg/dL (0.2-1.0); Magnesium 1.7 mg/dL (1.8-2.4); Phosphorus 2.3 mg/dL (2.5-4.9); Potassium 3.2 mmol/L (3.5-5.1); Protein, Total 7.7 g/dL (6.4-8.2); Thyroid Stimulating Hormone 2.04 uIU/mL (0.360-3.740)
--- NOTE | 2021-01-02 06:27 | RAD REPORT ---
EXAM DESCRIPTION: RAD - Chest Single View - 01/02/2021 12:47 am CLINICAL HISTORY: Dizziness COMPARISON: Chest Single View dated 12/16/2020; CHEST SINGLE VIEW dated 08/11/2014 FINDINGS: No evidence of edema or pneumonia. Cardiomegaly. Atherosclerosis.No acute osseous abnormal ity. No significant pleural effusions or pneumothorax. IMPRESSION: No acute cardiopulmonary disease.
--- NOTE | 2021-01-02 09:01 | EKG ---
Test Date: 2021-01-02 Test Time: 00:30:29 Distilling Department Supervisor: ANGELINE MEASUREMENT RESULTS: Intervals: Rate: 90 HI: QRSD: 96 QT: 406 QTc: 496 [place]: P: HI: QRS: 125 T: -55 INTERPRETIVE STATEMENTS: Atrial fibrillation Right axis deviation Anteroseptal infarct, age undetermined Abnormal ECG Compared to ECG 12/16/2020 14:32:38 Right-axis deviation now present ST (T wave) deviation no longer present Possible ischemia no longer present Myocardial infarct finding still present Electronically Signed On 01-02-21 09:01:08 CDT by Romero Almonte
[2021-01-02] MEDS ORDERED: MECLIZINE HCL 12.5 MG TAB PO PRN (16:23)
[2021-01-02] MEDS: SOTALOL HCL 80 MG TAB PO SCH (17:11)
[2021-01-02 18:54] VITALS: BMI 25.9
[2021-01-02 19:43] LABS: Urine Appearance CLEAR (Clear); Urine Bilirubin NEGATIVE (Negative); Urine Blood NEGATIVE (Negative); Urine Color YELLOW (Yellow); Urine Glucose 2+ (Negative); Urine Protein NEGATIVE (Negative); Urine Specific Gravity >=1.030 (1.005-1.030)
[2021-01-02 21:00] LABS: Urine Microscopic Reflex NO UMIC
[2021-01-02] MEDS ORDERED: MELATONIN 5 MG TABLET PO PRN (22:11)
--- NOTE | 2021-01-03 05:58 | P.PN ---
Subjective Date of Service: 01/03/21 Chief Complaint: weakness, recurrent falls Subjective: Improving (Still very weak. Fall risk.) Physical Examination - Vital Signs Temperature: 97.8 F Blood Pressure: 158/88 Pulse: 74 Respirations: 16 Pulse Ox (%): 97 Assessment & Plan Discharge Plan: Other (SNF vs Home with HH) Plan to discharge in: 24 Hours Physician Review Additional Text: Physical exam: General: Alert, In no apparent distress, Cooperative HEENT: Atraumatic, PERRLA, Mucous membr. moist/pink, EOMI, Sclerae nonicteric Neck: Supple, 2+ carotid pulse no bruit, No LAD, Without JVD or thyroid abnormality Respiratory: Clear to auscultation bilaterally, Normal air movement Cardiovascular: Regular rate/rhythm, Normal S1 S2 Gastrointestinal: Normal bowel sounds Musculoskeletal: No tenderness Integumentary: No rashes Neurological: Normal speech, Normal tone, Cranial nerves 3-12 intact, Normal affect, Abnormal strength, Abnormal sensation Lymphatics: No axilla or inguinal lymphadenopathy Impression: Dizziness with history of Mnire's disease Chronic atrial fibrillation on anticoagulation therapy Hypertension Chronic pain Plan: Dizziness with history of Mnire's disease: Physical therapy to assess ambulation along with occupational therapy. Continue with meclizine as needed. Fall precaution in place. She is a fall risk. She is better hydrated. Need to determine if patient will require skilled placement versus home with home health. Patient prefers to go to SNF. Will discuss with social service to assist. Anticipate SNF. Chronic atrial fibrillation on anticoagulation therapy: Continue sotalol. Will DC Coumadin and replace with Eliquis. Will need to make sure that insurance will cover. Parameters in place. Hypertension: Continue Norvasc Chronic pain: Continue Cymbalta CODE STATUS: Full code DVT prophylaxis: Coumadin Advance care [id number] minutes: Awaiting recommendations from physical therapy. Skilled versus home with home health will be considered Time Spent Managing Pts Care (In Minutes): 55
[2021-01-03 06:39] LABS: Protime INR 2.41
[2021-01-03 06:50] LABS: Albumin 3.8 g/dL (3.4-5.0); Bilirubin Total 0.6 mg/dL (0.2-1.0); Magnesium 1.8 mg/dL (1.8-2.4); Phosphorus 2.8 mg/dL (2.5-4.9); Potassium 3.8 mmol/L (3.5-5.1); Protein, Total 7.9 g/dL (6.4-8.2)
[2021-01-03] MEDS ORDERED: WARFARIN SODIUM 4 MG TAB PO SCH (09:00)
[2021-01-03] MEDS ORDERED: POTASSIUM CL SA 10 MEQ TAB PO ONE (09:00)
[2021-01-03] MEDS ORDERED: MAGNESIUM SULFATE 1 gm IVPB 1 GM/100 ML BAG IV ONE (09:00)
[2021-01-03] MEDS: AMLODIPINE 5 MG TAB PO SCH (09:54)
[2021-01-03] MEDS: APIXABAN 5 MG TABLET PO SCH ×2 (09:54→21:05)
[2021-01-03] MEDS: DULOXETINE 30 MG CAP PO SCH (09:54)
[2021-01-03] MEDS: SOTALOL HCL 80 MG TAB PO SCH ×3 (09:55→21:05)
--- NOTE | 2021-01-03 15:29 | RAD REPORT ---
EXAM DESCRIPTION: CT - Head Brain Wo Cont - 01/02/2021 6:45 am CLINICAL HISTORY: DIZZINESS TECHNIQUE: Contiguous axial CT images obtained through the brain without IV contrast. Coronal and sa gittal reformatted images were provided. This exam was performed according to our departmental dose-optimization program, which includes autom ated exposure control, adjustment of the mA and/or kV according to patient size and/or use of iterati ve reconstruction technique. COMPARISON: 12/16/2020 FINDINGS: Brain: There is mild to moderate cerebral atrophy. Mild bilateral periventricular and subc ortical white matter hypodensity most likely related to chronic microvascular angiopathy. No focal ma ss effect. Lawrence-white matter differentiation is within normal limits. No hemorrhage. Ventricles: No ventriculomegaly or midline shift. Extra-axial spaces: No extra-axial collection or hemorrhage. Paranasal sinuses and mastoid air cells: Well-aerated Vessels: There is atherosclerotic disease of the internal carotid arteries bilaterally. Bones: Unremarkable Soft tissues: Unremarkable IMPRESSION: 1. No acute hemorrhage, focal mass or large territory infarction. 2. Other findings as above. Electronically signed by: Peter Page MD 01/02/2021 1:35 AM CDT Due to temporary technical issues with the PACS/Fluency reporting system, reports are being signed by the in house radiologists without review as a courtesy to insure prompt reporting. The interpreting radiologist is fully responsible for the content of the report.
--- NOTE | 2021-01-04 06:04 | P.PN ---
Subjective Date of Service: 01/04/21 Chief Complaint: weakness, recurrent falls Physical Examination - Vital Signs Temperature: 98.0 F Blood Pressure: 135/85 Pulse: 90 Respirations: 17 Pulse Ox (%): 90 Assessment & Plan Physician Review Additional Text: Physical exam: General: Alert, In no apparent distress, Cooperative HEENT: Atraumatic, PERRLA, Mucous membr. moist/pink, EOMI, Sclerae nonicteric Neck: Supple, 2+ carotid pulse no bruit, No LAD, Without JVD or thyroid abnormality Respiratory: Clear to auscultation bilaterally, Normal air movement Cardiovascular: Regular rate/rhythm, Normal S1 S2 Gastrointestinal: Normal bowel sounds Musculoskeletal: No tenderness Integumentary: No rashes Neurological: Normal speech, Normal tone, Cranial nerves 3-12 intact, Normal affect, Abnormal strength, Abnormal sensation Lymphatics: No axilla or inguinal lymphadenopathy Impression: Dizziness with history of Mnire's disease Chronic atrial fibrillation on anticoagulation therapy Hypertension Chronic pain Plan: Dizziness with history of Mnire's disease: Physical therapy to assess ambulation along with occupational therapy. Continue with meclizine as needed. Fall precaution in place. She is a fall risk. She is better hydrated. Need to determine if patient will require skilled placement versus home with home health. Patient prefers to go to SNF. Will discuss with social service to assist. Anticipate SNF. Chronic atrial fibrillation on anticoagulation therapy: Continue sotalol. Will DC Coumadin and replace with Eliquis. Will need to make sure that insurance will cover. Parameters in place. Hypertension: Continue Norvasc Chronic pain: Continue Cymbalta CODE STATUS: Full code DVT prophylaxis: Coumadin Advance care [id number] minutes: Awaiting recommendations from physical therapy. Skilled versus home with home health will be considered
[2021-01-04 06:12] LABS: Absolute Lymphocytes (CBC) 1.6 K/uL (0.7-4.9); Basophils % 0.8 % (0-1.3); Hematocrit 39.6 % (36.0-45.0); Lymphocytes % 24.8 % (15.3-44.8); MPV 8.8 fL (7.6-11.3); RBC Red Blood Cell Count 4.39 M/uL (3.86-4.86)
[2021-01-04 06:24] LABS: Magnesium 2.1 mg/dL (1.8-2.4); Phosphorus 2.9 mg/dL (2.5-4.9); Potassium 3.8 mmol/L (3.5-5.1)
[2021-01-04] MEDS: SOTALOL HCL 80 MG TAB PO SCH ×3 (08:40→20:31)
[2021-01-04] MEDS: APIXABAN 5 MG TABLET PO SCH ×2 (08:40→20:31)
[2021-01-04] MEDS: AMLODIPINE 5 MG TAB PO SCH (08:40)
[2021-01-04] MEDS: DULOXETINE 30 MG CAP PO SCH (08:40)
[2021-01-04] MEDS ORDERED: POTASSIUM CL SA 10 MEQ TAB PO ONE (09:00)
--- NOTE | 2021-01-04 14:34 | P.PN ---
Subjective Date of Service: 01/04/21 Chief Complaint: weakness, recurrent falls Subjective: Improving, Doing well Physical Examination - Vital Signs Temperature: 97.3 F Blood Pressure: 119/89 Pulse: 90 Respirations: 18 Pulse Ox (%): 97 Assessment & Plan Discharge Plan: Other (snf facility) Plan to discharge in: 24 Hours Physician Review Additional Text: Physical exam: General: Alert, In no apparent distress, Cooperative HEENT: Atraumatic, PERRLA, Mucous membr. moist/pink, EOMI, Sclerae nonicteric Neck: Supple, 2+ carotid pulse no bruit, No LAD, Without JVD or thyroid abnormality Respiratory: Clear to auscultation bilaterally, Normal air movement Cardiovascular: Regular rate/rhythm, Normal S1 S2 Gastrointestinal: Normal bowel sounds Musculoskeletal: No tenderness Integumentary: No rashes Neurological: Normal speech, Normal tone, Cranial nerves 3-12 intact, Normal affect, Abnormal strength, Abnormal sensation Lymphatics: No axilla or inguinal lymphadenopathy Impression: Dizziness with history of Mnire's disease Chronic atrial fibrillation on anticoagulation therapy Hypertension Chronic pain Plan: Dizziness with history of Mnire's disease: Patient continues to improve. Physical therapy evaluated patient. Physical therapy recommends skilled placement for the patient. Agree with skilled placement. Social work to help arrange for skilled placement. Await approval. Chronic atrial fibrillation on anticoagulation therapy: Continue sotalol. Patient has been switched over from Coumadin to Eliquis. Will monitor her progress. Hypertension: Continue Norvasc Chronic pain: Continue Cymbalta CODE STATUS: Full code DVT prophylaxis: Eliquis Advance care [email or web address] minutes: Awaiting approval for skilled placement as recommended by physical therapy. Time Spent Managing Pts Care (In Minutes): 55
[2021-01-04] MEDS ORDERED: CETIRIZINE HCL 5 MG TABLET PO PRN (19:20)
[2021-01-04] MEDS: GUAIFENESIN 600 MG SA TAB PO PRN (20:31)
[2021-01-05 06:02] LABS: Potassium 3.9 mmol/L (3.5-5.1)
--- NOTE | 2021-01-05 06:05 | P.PN ---
Subjective Date of Service: 01/05/21 Chief Complaint: weakness, recurrent falls Subjective: Other (Patient still reports some unsteadiness.) Physical Examination - Vital Signs Temperature: 97.5 F Blood Pressure: 121/81 Pulse: 90 Respirations: 16 Pulse Ox (%): 99 Assessment & Plan Discharge Plan: Other (To nursing facility) Plan to discharge in: 24 Hours Physician Review Additional Text: Physical exam: General: Alert, In no apparent distress, Cooperative HEENT: Atraumatic, PERRLA, Mucous membr. moist/pink, EOMI, Sclerae nonicteric Neck: Supple, 2+ carotid pulse no bruit, No LAD, Without JVD or thyroid abnor mality Respiratory: Clear to auscultation bilaterally, Normal air movement Cardiovascular: Regular rate/rhythm, Normal S1 S2 Gastrointestinal: Normal bowel sounds Musculoskeletal: No tenderness Integumentary: No rashes Neurological: Normal speech, Normal tone, Cranial nerves 3-12 intact, Normal affect, Abnormal strength, Abnormal sensation Lymphatics: No axilla or inguinal lymphadenopathy Impression: Dizziness with history of Mnire's disease Chronic atrial fibrillation on anticoagulation therapy Hypertension Chronic pain Plan: Dizziness with history of Mnire's disease: Patient continues to improve. Patient still reports some unsteadiness. Patient still high risk for fall. Physical therapy continues to work with patient. Physical therapy recommended skilled placement. Awaiting approval. If denied only option is for patient to go home with home health. She understands this. Await approval from insurance before discharge is made. Chronic atrial fibrillation on anticoagulation therapy: Continue sotalol. Patient has been switched over from Coumadin to Eliquis. Will monitor her progress. Hypertension: Continue Norvasc Chronic pain: Continue Cymbalta CODE STATUS: Full code DVT prophylaxis: Eliquis Advance care [id number] minutes: Awaiting approval for skilled placement as recommended by physical therapy. Time Spent Managing Pts Care (In Minutes): 55
[2021-01-05] MEDS: APIXABAN 5 MG TABLET PO SCH ×2 (08:59→20:48)
[2021-01-05] MEDS: SOTALOL HCL 80 MG TAB PO SCH ×3 (08:59→20:48)
[2021-01-05] MEDS: DULOXETINE 30 MG CAP PO SCH (08:59)
[2021-01-05] MEDS: AMLODIPINE 5 MG TAB PO SCH (08:59)
[2021-01-05] MEDS ORDERED: POTASSIUM CL SA 10 MEQ TAB PO ONE (09:00)
[2021-01-05] MEDS: GUAIFENESIN 600 MG SA TAB PO PRN (20:50)
--- NOTE | 2021-01-06 06:05 | P.PN ---
Subjective Date of Service: 01/06/21 Chief Complaint: weakness, recurrent falls Subjective: Improving, Doing well Physical Examination - Vital Signs Temperature: 97 F Blood Pressure: 129/75 Pulse: 81 Respirations: 18 Pulse Ox (%): 96 Assessment & Plan Discharge Plan: Home Plan to discharge in: 24 Hours Physician Review Additional Text: Physical exam: General: Alert, In no apparent distress, Cooperative HEENT: Atraumatic, PERRLA, Mucous membr. moist/pink, EOMI, Sclerae nonicteric Neck: Supple, 2+ carotid pulse no bruit, No LAD, Without JVD or thyroid abnormality Respiratory: Clear to auscultation bilaterally, Normal air movement Cardiovascular: Regular rate/rhythm, Normal S1 S2 Gastrointestinal: Normal bowel sounds Musculoskeletal: No tenderness Integumentary: No rashes Neurological: Normal speech, Normal tone, Cranial nerves 3-12 intact, Normal affect, Abnormal strength, Abnormal sensation Lymphatics: No axilla or inguinal lymphadenopathy Impression: Dizziness with history of Mnire's disease Chronic atrial fibrillation on anticoagulation therapy Hypertension Chronic pain Plan: Dizziness with history of Mnire's disease: Spoke with social worker palliative care. Patient does not have any skilled needs. Physical therapy has worked with the patient. She has improved. Patient willing to go home with home health and physical therapy. Will arrange. Chronic atrial fibrillation on anticoagulation therapy: Continue sotalol. Patient has been switched over from Coumadin to Eliquis. Will monitor her progress. Hypertension: Continue Norvasc Chronic pain: Continue Cymbalta CODE STATUS: Full code DVT prophylaxis: Eliquis Advance care [email or web address] minutes: Home with home health and physical therapy Time Spent Managing Pts Care (In Minutes): 55
[2021-01-06 06:37] LABS: Potassium 4.1 mmol/L (3.5-5.1)
[2021-01-06] MEDS: DULOXETINE 30 MG CAP PO SCH (09:20)
[2021-01-06] MEDS: APIXABAN 5 MG TABLET PO SCH (09:20)
[2021-01-06] MEDS: AMLODIPINE 5 MG TAB PO SCH (09:20)
[2021-01-06] MEDS: SOTALOL HCL 80 MG TAB PO SCH (09:20)
[2021-01-06 10:28] VITALS: O2SAT 98
--- NOTE | 2021-01-06 10:29 | P.DS ---
Admission Date: 01/02/21 Discharge Date: 01/06/21 Primary Care Provider: Dr. Rivera Disposition: DC HOME/HOME HEALTH CARE Discharge Condition: GOOD Reason for Admission: weakness, recurrent falls Consultations: none Procedures: CT Head: COMPARISON: 12/16/2020 FINDINGS: Brain: There is mild to moderate cerebral atrophy. Mild bilateral periventricular and subcortical white matter hypodensity most likely related to chronic microvascular angiopathy. No focal mass effect. Lawrence-white matter differentiation is within normal limits. No hemorrhage. Ventricles: No ventriculomegaly or midline shift. Extra-axial spaces: No extra-axial collection or hemorrhage. Paranasal sinuses and mastoid air cells: Well-aerated Vessels: There is atherosclerotic disease of the internal carotid arteries bilaterally. Bones: Unremarkable Soft tissues: Unremarkable IMPRESSION: 1. No acute hemorrhage, focal mass or large territory infarction. 2. Other findings as above. CXR: COMPARISON: Chest Single View dated 12/16/2020; CHEST SINGLE VIEW dated 08/11/2014 FINDINGS: No evidence of edema or pneumonia. Cardiomegaly. Atherosclerosis.No acute osseous abnormality. No significant pleural effusions or pneumothorax. IMPRESSION: No acute cardiopulmonary disease Impression: Dizziness with history of Mnire's disease Chronic atrial fibrillation on anticoagulation therapy Hypertension Chronic pain Brief History of Present Illness: 70-year-old female with history of atrial fibrillation on chronic anticoagulation therapy, hypertension. Patient presented with dizziness. Patient with history of Mnire's disease. Patient had unsteadiness as well. This has been occurring over the past several months. She is fallen multiple times. Patient was admitted for further evaluation and treatment. Hospital Course: Patient presented with dizziness, unsteadiness and frequent falls. Patient with history of Mnire's disease. Patient takes meclizine as needed. The patient was seen and evaluated. CT head unremarkable. Physical therapy worked with the patient. Initially physical therapy recommended skilled placement. Skilled placement referral was made with social service worker. Social work spoke to [facility]. After much work with physical therapy, patient did not require any skilled placement as the patient was able to walk over 500 feet. Patient more stable at this time. Patient does not qualify for skilled placement. Other option provided included home health and physical therapy at discharge. Patient in agreement. At discharge the patient will continue with home health and physical therapy. Fall precaution in place. Recommend follow-up with PCP to further monitor and adjust. Patient may continue with meclizine as needed for dizziness. Patient with chronic atrial fibrillation on chronic anticoagulation therapy. Patient on Coumadin. Risks and benefit addressed concerning Coumadin to consider changing to another agent. Patient was agreeable to private branch exchange operator to Eliquis. Coumadin was discontinued during the course of her stay. She was switched over to Eliquis. Hemoglobin stable. Overall stable. At discharge patient will continue with Eliquis 5 mg 1 pill twice daily. Patient will no lo nger use Coumadin. Patient will also continue with sotalol 80 mg 1 pill 3 times a day. Recommend follow-up with PCP in 1 week to monitor her care. Recommend follow-up with cardiology in 1 to 2 weeks to follow his hospitalization. Education on Eliquis and atrial fibrillation will be provided. Patient with hypertension. Overall stable. At discharge patient will continue with Norvasc 5 mg daily. Recommend to maintain blood pressure less than 130/80. Further adjustment can be done by her PCP. Patient with chronic pain. At discharge patient will continue with Cymbalta 30 mg daily. Fall precautions in place. Vital Signs/Physical Exam: Temp Pulse Resp BP Pulse Ox 97 F 81 18 129/75 96 01/06/21 10:26 01/06/21 10:26 01/06/21 10:26 01/06/21 10:26 01/06/21 10:26 General: Alert, In no apparent distress, Oriented x3, Cooperative HEENT: Atraumatic Neck: Supple Respiratory: Clear to auscultation bilaterally, Normal air movement Cardiovascular: Irregular heart rate/rhythm (Atrial fibrillation rate controlled) Gastrointestinal: Normal bowel sounds, No tenderness, No masses, No rebound, No guarding Musculoskeletal: No erythema, No tenderness, No warmth Integumentary: No tenderness/swelling, No erythema, No cyanosis Neurological: Normal speech, Normal strength at 5/5 x4 extr, Normal tone, Normal affect Laboratory Data at Discharge: WBC 6.60 K/uL (4.3-10.9) 01/04/21 05:59 Hgb 13.3 g/dL (12.0-15.0) 01/04/21 05:59 Hct 39.6 % (36.0-45.0) 01/04/21 05:59 Plt Count 240 K/uL (152-406) 01/04/21 05:59 PT 28.0 SECONDS (9.5-12.5) H 01/03/21 05:59 INR 2.41 01/03/21 05:59 Sodium 141 mmol/L (136-145) 01/06/21 05:30 Potassium 4.1 mmol/L (3.5-5.1) 01/06/21 05:30 BUN 21 mg/dL (7-18) H 01/06/21 05:30 Creatinine 0.76 mg/dL (0.55-1.3) 01/06/21 05:30 Glucose 83 mg/dL (74-106) 01/06/21 05:30 Phosphorus 2.9 mg/dL (2.5-4.9) 01/04/21 05:59 Magnesium 2.1 mg/dL (1.8-2.4) 01/04/21 05:59 Total Bilirubin 0.6 mg/dL (0.2-1.0) 01/03/21 05:59 AST 19 U/L (15-37) 01/03/21 05:59 ALT 20 U/L (12-78) 01/03/21 05:59 Alkaline Phosphatase 70 U/L (45-117) 01/03/21 05:59 Triglycerides 96 mg/dL (<150) 01/03/21 05:59 Cholesterol 181 mg/dL (<200) 01/03/21 05:59 HDL Cholesterol 62 mg/dL (40-60) H 01/03/21 05:59 Cholesterol/HDL Ratio 2.92 01/03/21 05:59 Home Medications: Acetaminophen [Tylenol Extra Strength] 500 mg PO Q6H PRN 01/02/21 Amlodipine Besylate 5 mg PO DAILY 01/02/21 Duloxetine HCl [Cymbalta] 30 mg PO DAILY 01/02/21 Meclizine HCl 25 mg PO TID PRN 01/02/21 Sotalol HCl [Sotalol AF] 80 mg PO TID 01/02/21 Cetirizine HCl [Zyrtec*] 5 mg PO BID PRN 01/04/21 Apixaban [Eliquis] 5 mg PO BID #60 tablet 01/06/21 New Medications: Apixaban [Eliquis] 5 mg PO BID #60 tablet Physician Discharge Instructions: Patient presented with dizziness, unsteadiness and frequent falls. Patient with history of Mnire's disease. Patient takes meclizine as needed. The patient was seen and evaluated. CT head unremarkable. Physical therapy worked with the patient. Initially physical therapy recommended skilled placement. Skilled placement referral was made with social service worker. Social work spoke to [facility]. After much work with physical therapy, patient did not require any skilled placement as the patient was able to walk over 500 feet. Patient more stable at this time. Patient does not qualify for skilled placement. Other option provided included home health and physical therapy at discharge. Patient in agreement. At discharge the patient will continue with home health and physical therapy. Fall precaution in place. Recommend follow-up with PCP to further monitor and adjust. Patient may continue with meclizine as needed for dizziness. Patient with chronic atrial fibrillation on chronic anticoagulation therapy. Patient on Coumadin. Risks and benefit addressed concerning Coumadin to consider changing to another agent. Patient was agreeable to private branch exchange operator to Eliquis. Coumadin was discontinued during the course of her stay. She was switched over to Eliquis. Hemoglobin stable. Overall stable. At discharge patient will continue with Eliquis 5 mg 1 pill twice daily. Patient will no longer use Coumadin. Patient will also continue with sotalol 80 mg 1 pill 3 times a day. Recommend follow-up with PCP in 1 week to monitor her care. Recommend follow-up with cardiology in 1 to 2 weeks to follow his hospitalization. Education on Eliquis and atrial fibrillation will be provided. Patient with hypertension. Overall stable. At discharge patient will continue with Norvasc 5 mg daily. Recommend to maintain blood pressure less than 130/80. Further adjustment can be done by her PCP. Patient with chronic pain. At discharge patient will continue with Cymbalta 30 mg daily. Fall precautions in place. Diet: AHA Activity: Fall precautions Followup: Marianne Rivera DO [Primary Care Provider] - Time spent managing pt's care (in minutes): 55
[2021-01-06 14:47] VITALS: BP 147/89; TEMP 97.2
== END 2021-01-06 15:34 | disposition home health service (06) ==
LOC: ER 22:21 → ERHOLD 01-02 03:38 → 2ND 01-02 15:02
PROVIDERS: ADMIT Hospitalist; ATTEND Family Medicine
DX: R42 Dizziness and giddiness (principal); H81.09 Meniere's disease, unspecified ear; I10 Essential (primary) hypertension; I48.91 Unspecified atrial fibrillation; R53.1 Weakness; Z91.81 History of falling; Z79.01 Long term (current) use of anticoagulants; Z88.6 Allergy status to analgesic agent; Z88.2 Allergy status to sulfonamides
CPT/HCPCS: 96361; 93005 ×2; 85025 ×2; 80048 ×4; 36415 ×5; 83735 ×4; 84100 ×3; 85610 ×2; 80061; 80076; 84443; 81003 ×2; 84484; 84439; 80053 ×2; 83880; 70450; 71045; 97535; 97110 ×2; 97112; 97116 ×4; 97161; 97165; 97530 ×2; 94760 ×11; 96360; 99285; U0003; J3475; J7040; G0378

== ENCOUNTER 2021-04-09 13:44 | Inpatient (IN) | payer OTHER ==
[2021-04-09 14:21] LABS: Basophils % 0.6 % (0-1.3); Hematocrit 42.8 % (36.0-45.0); Lymphocytes % 11.2 % (15.3-44.8); RBC Red Blood Cell Count 4.64 M/uL (3.86-4.86)
--- NOTE | 2021-04-09 14:22 | RAD REPORT ---
EXAM DESCRIPTION: RAD - Chest Single View - 04/09/2021 2:16 pm CLINICAL HISTORY: palp;Dyspnea Chest pain. COMPARISON: Chest Single View dated 01/02/2021; Chest Single View dated 12/16/2020; CHEST SINGLE VIEW dated 08/11/2014 FINDINGS: Portable technique limits examination quality. The lungs are emphysematous but grossly clear. Right apex is partially obscured by patient's chin. Th e heart is normal in size. No displaced fractures. IMPRESSION: Prominent COPD.
[2021-04-09] MEDS ORDERED: LABETALOL 20 MG/4ML SYRINGE IV ONE (14:52)
[2021-04-09] MEDS ORDERED: METOPROLOL XL 50 MG TAB PO ONE (14:52)
[2021-04-09] MEDS ORDERED: METOPROLOL TAR 50 MG TAB ONE (14:57)
[2021-04-09] MEDS ORDERED: METOPROLOL TARTRATE 5 MG/5 ML INJ IV ONE (14:58)
[2021-04-09 15:09] LABS: Protime INR 2.07
--- NOTE | 2021-04-09 15:18 | RAD REPORT ---
EXAM DESCRIPTION: RAD - Pelvis - 04/09/2021 3:07 pm CLINICAL HISTORY: TRAUMA COMPARISON: Hip Right 2 View dated 04/09/2021 FINDINGS: Moderate osteoarthritic changes involve the right hip. No acute fracture, dislocation or A VN.
--- NOTE | 2021-04-09 15:18 | RAD REPORT ---
EXAM DESCRIPTION: RAD - Hip Right 2 View - 04/09/2021 3:07 pm CLINICAL HISTORY: PAIN COMPARISON: No comparisons FINDINGS: Moderate arthritic changes involve the right hip. No acute fracture or dislocation seen.
[2021-04-09] MEDS ORDERED: NA CHLORIDE 0.9% 500 ML ONE ×2 (15:23→17:35)
[2021-04-09] MEDS ORDERED: FAMOTIDINE 20 MG/2 ML VIAL IV ONE (15:23)
[2021-04-09] MEDS ORDERED: NA CHLORIDE 0.9% 1,000 ML ONE (15:24)
[2021-04-09] MEDS ORDERED: MAGNESIUM SULFATE 1 gm IVPB 1 GM/100 ML BAG IV ONE (15:24)
[2021-04-09 15:32] LABS: ALT/SGPT 30 U/L (12-78); AST/SGOT 32 U/L (15-37); Albumin 3.6 g/dL (3.4-5.0); Alkaline Phosphatase 68 U/L (45-117); BUN Blood Urea Nitrogen 23 mg/dL (7-18); Bicarbonate 26 mmol/L (21-32); Bilirubin Direct 0.3 mg/dL (0-0.2); Creatine Phosphokinase 377 U/L (26-192); Glucose Level 109 mg/dL (74-106); Lipase 48 U/L (73-393); Protein, Total 7.8 g/dL (6.4-8.2); Sodium Level 146 mmol/L (136-145); Thyroid Stimulating Hormone 0.809 uIU/mL (0.360-3.740); Troponin (Emerg Dept Use Only) < 0.02 ng/mL (0.0-0.045)
[2021-04-09 15:35] LABS: NT PRO-BNP 1760 pg/mL (<125)
--- NOTE | 2021-04-09 17:11 | ER ---
Nurse's Notes [facility] Name: Vidya Colón Age: 71 yrs Sex: Female : 1950 Arrival Date: 04/09/2021 Time: 13:54 Bed 6 Private MD: Diagnosis: Repeated falls;Fall on same level, unspecified;Chronic atrial fibrillation-with RVR;Rhabdomyolysis;Hypokalemia;Unspecified kidney failure Presentation: 04/09 14:07 Chief complaint: EMS states: Pt fell last night, c/o R Hip pain spent all night on ch5 ground. fell due to weakness. placed on monitor. Pt in Afib RVR with runs of Vtach. Coronavirus screen: Vaccine status: Patient reports receiving the 1st dose of the Covid vaccine. Ebola Screen: Patient negative for fever greater than or equal to 101.5 degrees Fahrenheit, and additional compatible Ebola Virus Disease symptoms Patient denies exposure to infectious person. Patient denies travel to an Ebola-affected area in the 21 days before illness onset. Initial Sepsis Screen: Does the patient have a suspected source of infection? No. Patient's initial sepsis screen is negative. Risk Assessment: Do you want to hurt yourself or someone else? Patient reports no desire to harm self or others. 14:07 Method Of Arrival: EMS: [place] [id number] 14:07 Acuity: NITA 2 5 Triage Assessment: 14:07 General: Appears in no apparent distress. Behavior is calm, cooperative. Pain: 5 Complains of pain in Right Hip. Historical: - Immunization history:: Adult Immunizations unknown, . - Social history:: Smoking status: Patient denies any tobacco usage or history of. - Family history:: not pertinent. Screenin:16 Abuse screen: Denies threats or abuse. Denies injuries from another. Nutritional 5 screening: No deficits noted. Tuberculosis screening: No symptoms or risk factors identified. Fall Risk Fall in past 12 months (25 points). Assessment: 14:15 General: Appears in no apparent distress. Cardiovascular: Rhythm is atrial fibrillation ch5 with rapid ventricular response. Vital Signs: 14:07 BP 143 / 92; Pulse 124; Resp 20; Temp 98.(O); Pulse Ox 100% on R/A; Weight 68.04 kg; ch5 Height 5 ft. 8 in. (172.72 cm); Pain /; 14:39 BP 138 / 82; Pulse 96; Resp 20; Pulse Ox 98% on R/A; ch5 16:08 BP 144 / 78; Pulse 102; Resp 18; Pulse Ox 100% on R/A; ch5 17:56 BP 128 / 56; Pulse 109; Resp 18; Pulse Ox 96% on R/A; ch5 14:07 Body Mass Index 22.81 (68.04 kg, 172.72 cm) 5 ED Course: 13:54 Patient arrived in ED. ss 13:57 Colby Jarrell MD is Attending Physician. lucius 14:06 Thanh Alvarez, JOSE MIGUEL is Primary Nurse. ch5 14:13 Triage completed. ch5 14:16 XRAY Chest (1 view) In Process Unspecified. EDMS 14:16 Bed in low position. Call light in reach. Side rails up X2. ch5 14:16 No provider procedures requiring assistance completed. Inserted saline lock: 22 gauge 5 in right forearm, using aseptic technique. 14:25 Arm band placed on left wrist. ss 15:04 SARS-COV-2 RT PCR Sent. ch5 15:09 Pelvis XRAY In Process Unspecified. EDMS 15:09 Hip Right 2 View XRAY In Process Unspecified. EDMS 16:59 Becki Purvis MD is Hospitalizing Provider. lucius 17:00 Urine collected: Franco catheter specimen. iw 17:27 CT Traumagram (Head C Spine CAP wo con) In Process Unspecified. EDMS 17:54 Urine Culture Sent. ch5 Administered Medications: 16:38 Discontinued: NS 0.9% 1000 ml IV at 125 ml/hr continuous lucius 12:25 Drug: Lopressor (metoprolol TARTRATE) 50 mg Route: PO; ch5 16:15 Follow up: Response: No adverse reaction jw6 14:25 Drug: Lopressor (metoprolol) 5 mg Route: IVP; Site: right forearm; ch5 16:16 Follow up: Response: No adverse reaction jw6 16:17 Follow up: Response: No adverse reaction jw6 15:05 Drug: NS 0.9% 500 ml Route: IV; Rate: bolus; Site: right forearm; ch5 16:15 Follow up: Response: No adverse reaction jw6 15:05 Drug: NS 0.9% 1000 ml Route: IV; Rate: 125 ml/hr; Site: right forearm; ch5 16:15 Follow up: Response: No adverse reaction jw6 17:35 Follow up: IV Status: Completed infusion; Order to discontinue infusion ch5 15:05 Drug: Pepcid (famotidine) 20 mg Route: IVP; Site: right forearm; ch5 16:15 Follow up: Response: No adverse reaction jw6 15:06 Drug: Magnesium Sulfate 1 grams Route: IVPB; Infused Over: 1 hrs; Site: right forearm; ch5 16:17 Follow up: Response: No adverse reaction; IV Status: Completed infusion jw6 16:18 Not Given (Duplicate Order): NS 0.9% 1000 ml IV at 125 ml/hr continuous jt3 17:12 Drug: NS 0.9% 500 ml Route: IV; Rate: bolus; Site: right antecubital; ch5 17:35 Follow up: IV Status: Completed infusion ch5 17:53 Drug: Potassium Effervescent Tablet 25 mEq Route: PO; ch5 17:53 Drug: NS 0.9% with KCl 20 mEq/L 1000 ml Route: IV; Rate: 125 ml/hr; Site: right ch5 antecubital; 17:54 Drug: Rocephin (cefTRIAXone) 1 grams Route: IV; Rate: per protocol; Site: right ch5 antecubital; Outcome: 17:11 Decision to Hospitalize by Provider. lucius 20:11 Patient left the ED. sj1 Signatures: Dispatcher [employer] EDColby Cope MD MD cha Williams, Irene, RN RN yTra Arzate RN RN Thanh Alvarez RN RN Padma Robles RN RN sj1 Agnieszka Holbrook 6 César Shelton RN [email or web address] Corrections: (The following items were deleted from the chart) 14:16 14:16 PMHx: Atrial fibrillation; ch5 ch5 14:16 14:16 PMHx: Hypertensive disorder; ch5 ch5 14:16 14:16 PMHx: Vertigo; ch5 ch5
--- NOTE | 2021-04-09 17:12 | EDPHYS ---
Physician Documentation [facility] Name: Vidya Colón Age: 71 yrs Sex: Female : 1950 Arrival Date: 04/09/2021 Time: 13:54 Bed 6 Private MD: DORON Physician Colby Jarrell HPI: 04/09 16:41 This 71 yrs old Female presents to ER via EMS with complaints of fall , on [facility] floor for hours, hib back and neck pain. 16:41 The patient or guardian reports pain. that occurred at home. The complaints affect the [facility] back of neck, back and right leg. Onset: The symptoms/episode began/occurred yesterday. Modifying factors: The symptoms are alleviated by nothing, the symptoms are aggravated by nothing. The patient or guardian complains of decreased range of motion. The symptoms are located on the back of neck and back. Context: The problem was sustained at home. The patient presents with pain that is acute, and contusion, and decreased range of motion, and an injury. The symptoms are located in the low back, thoracic area, lumbar area, sacrum and right low back. Historical: - Immunization history:: Adult Immunizations unknown, . - Social history:: Smoking status: Patient denies any tobacco usage or history of. - Family history:: not pertinent. ROS: 16:41 Constitutional: Negative for fever, chills, and weight loss, Eyes: Negative for injury, lucius pain, redness, and discharge, ENT: Negative for injury, pain, and discharge, Neck: Negative for injury, pain, and swelling, Respiratory: Negative for shortness of breath, cough, wheezing, and pleuritic chest pain, Abdomen/GI: Negative for abdominal pain, nausea, vomiting, diarrhea, and constipation, Back: Negative for injury and pain, : Negative for injury, bleeding, discharge, and swelling, Skin: Negative for injury, rash, and discoloration, Neuro: Negative for headache, weakness, numbness, tingling, and seizure, Psych: Negative for depression, anxiety, suicide ideation, homicidal ideation, and hallucinations, Allergy/Immunology: Negative for hives, rash, and allergies, Endocrine: Negative for neck swelling, polydipsia, polyuria, polyphagia, and marked weight changes, Hematologic/Lymphatic: Negative for swollen nodes, abnormal bleeding, and unusual bruising. 16:41 Cardiovascular: Positive for palpitations. 16:41 Respiratory: Negative for cough, shortness of breath. 16:41 Back: Positive for decreased range of motion, pain at rest, of the thoracic area, lumbar area and sacrum. 16:41 MS/extremity: Positive for contusion, pain, of the right hip. Exam: 16:41 Constitutional: This is a well developed, well nourished patient who is awake, alert, lucius and in no acute distress. Head/Face: Normocephalic, atraumatic. Eyes: Pupils equal round and reactive to light, extra-ocular motions intact. Lids and lashes normal. Conjunctiva and sclera are non-icteric and not injected. Cornea within normal limits. Periorbital areas with no swelling, redness, or edema. ENT: Nares patent. No nasal discharge, no septal abnormalities noted. Tympanic membranes are normal and external auditory canals are clear. Oropharynx with no redness, swelling, or masses, exudates, or evidence of obstruction, uvula midline. Mucous membranes moist. Neck: Trachea midline, no thyromegaly or masses palpated, and no cervical lymphadenopathy. Supple, full range of motion without nuchal rigidity, or vertebral point tenderness. No Meningismus. Chest/axilla: Normal chest wall appearance and motion. Nontender with no deformity. No lesions are appreciated. Respiratory: Lungs have equal breath sounds bilaterally, clear to auscultation and percussion. No rales, rhonchi or wheezes noted. No increased work of breathing, no retractions or nasal flaring. Abdomen/GI: Soft, non-tender, with normal bowel sounds. No distension or tympany. No guarding or rebound. No evidence of tenderness throughout. Back: No spinal tenderness. No costovertebral tenderness. Full range of motion. Female : Normal external genitalia. Skin: Warm, dry with normal turgor. Normal color with no rashes, no lesions, and no evidence of cellulitis. MS/ Extremity: Pulses equal, no cyanosis. Neurovascular intact. Full, normal range of motion. Neuro: Awake and alert, GCS 15, oriented to person, place, time, and situation. Cranial nerves II-XII grossly intact. Motor strength 5/5 in all extremities. Sensory grossly intact. Cerebellar exam normal. Normal gait. Psych: Awake, alert, with orientation to person, place and time. Behavior, mood, and affect are within normal limits. 16:41 Cardiovascular: Rate: tachycardic, actual rate is 112 bpm, Rhythm: irregularly irregular, Pulses: Pulses are 4+ in bilateral radial, brachial, femoral, popliteal, posterior tibial and and dorsalis pedis arteries.. Heart sounds: normal, Edema: is not appreciated, JVD: is not appreciated. 16:41 ECG was reviewed by the Attending Physician. Vital Signs: 14:07 BP 143 / 92; Pulse 124; Resp 20; Temp 98.(O); Pulse Ox 100% on R/A; Weight 68.04 kg; ch5 Height 5 ft. 8 in. (172.72 cm); Pain /10; 14:39 BP 138 / 82; Pulse 96; Resp 20; Pulse Ox 98% on R/A; ch5 16:08 BP 144 / 78; Pulse 102; Resp 18; Pulse Ox 100% on R/A; ch5 17:56 BP 128 / 56; Pulse 109; Resp 18; Pulse Ox 96% on R/A; ch5 14:07 Body Mass Index 22.81 (68.04 kg, 172.72 cm) ch5 MDM: 13:57 Patient medically screened. lucius 16:48 Differential diagnosis: hip fracture, intertrochanteric fracture, arthritis, strain, lucius arthritis, Fracture Hydronephrosis Osteoarthritis Peptic Ulcer ruptured disc, sprain, Degenerative Disc Disease Neck Contusion Osteoarthritis Simple Wedge Fracture Unstable Vertebral Fracture vertebral fracture. Differential diagnosis: closed head injury, contusion, fracture, laceration, multiple trauma, sprain, strain. Data reviewed: vital signs, nurses notes, lab test result(s), EKG, radiologic studies, CT scan, plain films. 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 Test interpretation: by ED physician or midlevel provider: ECG, plain radiologic studies. Counseling: I had a detailed discussion with the patient and/or guardian regarding: the historical points, exam findings, and any diagnostic results supporting the discharge/admit diagnosis, the presence of at least one elevated blood pressure reading (>120/80) during this emergency department visit, lab results, radiology results, the need for further work-up and treatment in the hospital. 04/09 14:01 Order name: Basic Metabolic Panel [facility] 04/09 14:01 Order name: CBC with Diff [facility] 04/09 14:01 Order name: LFT's [facility] 04/09 14:01 Order name: Magnesium [facility] 04/09 14:01 Order name: NT PRO-BNP [facility] 04/09 14:01 Order name: PT-INR [facility] 04/09 14:01 Order name: Troponin (emerg Dept Use Only); Complete Time: 16:33 [facility] 04/09 14:01 Order name: TSH; Complete Time: 16:33 [facility] 04/09 14:01 Order name: Lipase; Complete Time: 16:33 [facility] 04/09 14:01 Order name: Basic Metabolic Panel; Complete Time: 16:33 [facility] 04/09 14:01 Order name: CBC with Automated Diff; Complete Time: 16:33 [facility] 04/09 14:01 Order name: Liver (Hepatic) Function; Complete Time: 16:33 [facility] 04/09 14:01 Order name: Magnesium; Complete Time: 16:33 [facility] 04/09 14:01 Order name: NT PRO-BNP; Complete Time: 16:33 [facility] 04/09 14:01 Order name: Protime (+INR); Complete Time: 16:33 [facility] 04/09 14:27 Order name: Blood Culture Adult (2) [facility] 04/09 14:27 Order name: Lactate; Complete Time: 16:33 [facility] 04/09 14:27 Order name: CK; Complete Time: 16:33 [facility] 04/09 14:27 Order name: Ckmb; Complete Time: 16:33 [facility] 04/09 14:52 Order name: SARS-COV-2 RT PCR; Complete Time: 16:33 [facility] 04/09 16:32 Order name: Urine Culture [facility] 04/09 16:33 Order name: Urine Culture [facility] 04/09 14:01 Order name: EKG; Complete Time: 14:02 [facility] 04/09 14:01 Order name: Cardiac monitoring; Complete Time: 16:02 [facility] 04/09 14:01 Order name: EKG - Nurse/Tech; Complete Time: 16:02 [facility] 04/09 14:01 Order name: IV Saline Lock; Complete Time: 16:02 [facility] 04/09 14:01 Order name: Labs collected and sent; Complete Time: 16:02 [facility] 04/09 14:01 Order name: O2 Per Protocol; Complete Time: 16:02 [facility] 04/09 14:01 Order name: O2 Sat Monitoring; Complete Time: 16:02 [facility] 04/09 14:01 Order name: XRAY Chest (1 view); Complete Time: 16:33 [facility] 04/09 14:01 Order name: EKG; Complete Time: 14:02 [facility] 04/09 14:01 Order name: Cardiac monitoring; Complete Time: 14:06 [facility] 04/09 14:26 Order name: Pelvis XRAY; Complete Time: 16:33 [facility] 04/09 14:26 Order name: Hip Right 2 View XRAY; Complete Time: 16:33 [facility] 04/09 16:36 Order name: CT Traumagram (Head C Spine CAP wo con); Complete Time: 19:04 [facility] 04/09 17:46 Order name: Urine Dipstick-Ancillary; Complete Time: 19:04 [facility] 04/09 18:18 Order name: CONS Physician Consult [facility] 04/09 18:18 Order name: Heart Healthy [facility] 04/09 18:18 Order name: CBC with Automated Diff [facility] 04/09 18:18 Order name: CBC with Automated Diff [facility] 04/09 18:18 Order name: Comprehensive Metabolic Panel [facility] 04/09 18:18 Order name: Comprehensive Metabolic Panel [facility] 04/09 14:01 Order name: EKG - Nurse/Tech; Complete Time: 14:06 [facility] 04/09 14:01 Order name: IV Saline Lock; Complete Time: 16:01 [facility] 04/09 14:01 Order name: Labs collected and sent; Complete Time: 16:01 [facility] 04/09 14:01 Order name: O2 Per Protocol; Complete Time: 14:06 [facility] 04/09 14:01 Order name: O2 Sat Monitoring; Complete Time: 14:06 [facility] 04/09 14:25 Order name: Labs - recollect needed: recollect chemistry and coag tube (light green and eb blue tubes); Complete Time: 15:39 04/09 16:32 Order name: Urine Dipstick-Ancillary (obtain specimen); Complete Time: 17:45 [facility] 04/09 16:32 Order name: Franco; Complete Time: 16:59 [facility] EC:41 Rate is 120 beats/min. Rhythm is irregularly irregular. QRS [place] is Normal. NH interval lucius is normal. QRS interval is normal. QT interval is normal. No Q waves. T waves are Normal. Clinical impression: Atrial Fibrillation and No evidence of ischemia. Interpreted by me. Reviewed by me. Administered Medications: 16:38 Discontinued: NS 0.9% 1000 ml IV at 125 ml/hr continuous lucius 12:25 Drug: Lopressor (metoprolol TARTRATE) 50 mg Route: PO; ch5 16:15 Follow up: Response: No adverse reaction jw6 14:25 Drug: Lopressor (metoprolol) 5 mg Route: IVP; Site: right forearm; ch5 16:16 Follow up: Response: No adverse reaction jw6 16:17 Follow up: Response: No adverse reaction jw6 15:05 Drug: NS 0.9% 500 ml Route: IV; Rate: bolus; Site: right forearm; ch5 16:15 Follow up: Response: No adverse reaction jw6 15:05 Drug: NS 0.9% 1000 ml Route: IV; Rate: 125 ml/hr; Site: right forearm; ch5 16:15 Follow up: Response: No adverse reaction jw6 17:35 Follow up: IV Status: Completed infusion; Order to discontinue infusion ch5 15:05 Drug: Pepcid (famotidine) 20 mg Route: IVP; Site: right forearm; ch5 16:15 Follow up: Response: No adverse reaction jw6 15:06 Drug: Magnesium Sulfate 1 grams Route: IVPB; Infused Over: 1 hrs; Site: right forearm; ch5 16:17 Follow up: Response: No adverse reaction; IV Status: Completed infusion jw6 16:18 Not Given (Duplicate Order): NS 0.9% 1000 ml IV at 125 ml/hr continuous jt3 17:12 Drug: NS 0.9% 500 ml Route: IV; Rate: bolus; Site: right antecubital; ch5 17:35 Follow up: IV Status: Completed infusion ch5 17:53 Drug: Potassium Effervescent Tablet 25 mEq Route: PO; ch5 17:53 Drug: NS 0.9% with KCl 20 mEq/L 1000 ml Route: IV; Rate: 125 ml/hr; Site: right ch5 antecubital; 17:54 Drug: Rocephin (cefTRIAXone) 1 grams Route: IV; Rate: per protocol; Site: right ch5 antecubital; Disposition Summary: 04/09/21 17:11 Hospitalization Ordered Hospitalization Status: Inpatient Admission lucius Provider: Becki Purvis cha Location: Telemetry/MedSurg (Inpatient) lucius Condition: Fair lucius Problem: new lucius Symptoms: have improved lucius Bed/Room Type: Standard lucius Room Assignment: 214(04/09/21 18:38) eb Diagnosis - Repeated falls lucius - Fall on same level, unspecified lucius - Chronic atrial fibrillation - with RVR lucius - Rhabdomyolysis lucius - Hypokalemia lucius - Unspecified kidney failure lucius Forms: - Medication Reconciliation Form lucius - SBAR form lucius Signatures: Dispatcher [employer] EDMS Colby Jarrell MD MD cha Botello, Elizabeth eb Heath, Christopher, RN RN ch5 Agnieszka Holbrook6 César Shelton RN jt3 Corrections: (The following items were deleted from the chart) 14:02 14:01 BASIC METABOLIC PANEL+C.LAB.BRZ ordered. EDMS EDMS 14:02 14:01 CBC+H.LAB.BRZ ordered. EDMS EDMS 14:02 14:01 HEPATIC FUNCTION+C.LAB.BRZ ordered. EDMS EDMS 14:02 14:01 MAGNESIUM+C.LAB.BRZ ordered. EDMS EDMS 14:02 14:01 PROBNP+C.LAB.BRZ ordered. EDMS EDMS 14:02 14:01 PROTIME (+INR)+COAG.LAB.BRZ ordered. EDMS EDMS 14:02 14:01 TROPONIN (EMERG DEPT USE ONLY)+C.LAB.BRZ ordered. EDMS EDMS 14:03 14:01 Chest Single View+RAD.RAD.BRZ ordered. EDMS EDMS 14:16 14:16 PMHx: Atrial fibrillation; ch5 ch5 14:16 14:16 PMHx: Hypertensive disorder; ch5 ch5 14:16 14:16 PMHx: Vertigo; ch5 ch5 14:51 14:01 CORONAVIRUS+MR.LAB.BRZ ordered. EDMS EDMS 18:38 17:11 lucius eb
[2021-04-09] MEDS ORDERED: CEFTRIAXONE 1000 MG/VIAL ONE (17:41)
[2021-04-09] MEDS ORDERED: NS KCL 20MEQ 1,000 ML IV ONE (17:41)
[2021-04-09] MEDS ORDERED: POTASSIUM 25 MEQ EFFERV TAB ONE (17:41)
[2021-04-09 17:46] LABS: Urine Blood Negative (Negative); Urine Glucose Negative (Negative); Urine Protein Negative (Negative); Urine Specific Gravity 1.025 (1.005-1.030)
--- NOTE | 2021-04-09 17:55 | RAD REPORT ---
EXAM DESCRIPTION: CT - Head C Spine Cap Wo Con - 04/09/2021 5:27 pm CLINICAL HISTORY: Trauma, head and neck injury. Chest, abdomen and pelvis pain. Pain;Weakness COMPARISON: <Comparisons> TECHNIQUE: CT head without contrast. CT cervical spine without contrast with coronal and sagittal reformatted images. CT chest, abdomen and pelvis without contrast with coronal and sagittal reformatted images of the spi ne. All CT scans are performed using dose optimization technique as appropriate and may include automated exposure control or mA/KV adjustment according to patient size. FINDINGS: CT HEAD WITHOUT CONTRAST: No intracranial hemorrhage, hydrocephalus or extra-axial fluid collection. Moderate generalized brain atrophy is present with mild periventricular and deep white matter chronic microvascular ischemic ch anges. No areas of brain edema or midline shift. The paranasal sinuses and mastoids are clear. The calvarium is intact. CT CERVICAL SPINE WITHOUT CONTRAST: No fracture or subluxation. Moderate multilevel cervical degenerative changes. The prevertebral soft tissues are normal in thickness. CT CHEST, ABDOMEN, PELVIS WITHOUT CONTRAST: NOTE: Lack of contrast is a significant limitation in the assessment of trauma related findings. Spec ifically, solid organ, vascular and bowel evaluation is significantly limited. The lungs are clear.Moderate hiatal hernia.No pneumothorax or pericardial/pleural fluid. No evidence of intra-abdominal visceral injury, free fluid or free air is seen within the above detai led limitations. Fibroid uterus. No fractures. Chronic L1 and L2 anterior wedge compression deformities. IMPRESSION: Negative for acute traumatic findings within the above detailed limitations.
[2021-04-09] MEDS ORDERED: ONDANSETRON 4 MG/2 ML VIAL IV PRN (18:15)
[2021-04-09] MEDS ORDERED: MORPHINE 2 MG/ML SYR IV PRN (18:15)
[2021-04-09] MEDS ORDERED: METOPROLOL TARTRATE 5 MG/5 ML INJ IV SCH (19:00)
[2021-04-09 20:20] VITALS: BMI 22.8
[2021-04-09] MEDS: METOPROLOL TAR 25 MG TAB PO SCH (21:44)
[2021-04-09] MEDS: NA CHLORIDE 0.9% 1,000 ML IV SCH (21:44)
[2021-04-09] MEDS ORDERED: METOPROLOL TARTRATE 5 MG/5 ML INJ IV PRN (22:08)
[2021-04-10] MEDS: NA CHLORIDE 0.9% 1,000 ML IV SCH ×2 (05:50→16:11)
[2021-04-10 06:26] LABS: Absolute Lymphocytes (CBC) 1.4 K/uL (0.7-4.9); Lymphocytes % 20.5 % (15.3-44.8); MPV 9.3 fL (7.6-11.3); RBC Red Blood Cell Count 3.95 M/uL (3.86-4.86)
[2021-04-10 06:55] LABS: Albumin 2.7 g/dL (3.4-5.0); Bilirubin Total 0.9 mg/dL (0.2-1.0); Protein, Total 6.2 g/dL (6.4-8.2)
[2021-04-10] MEDS: METOPROLOL TAR 25 MG TAB PO SCH ×2 (08:05→17:43)
[2021-04-10] MEDS: ACETAMINOPHEN 500 MG TAB PO PRN ×2 (08:06→22:41)
[2021-04-10] MEDS ORDERED: POTASSIUM 25 MEQ EFFERV TAB PO ONE (09:00)
[2021-04-10] MEDS ORDERED: INFLUENZA VACCINE (for 6+ mo) 0.5 ML DOSE IMVAC ONE (10:00)
--- NOTE | 2021-04-10 10:57 | P.HP ---
Certification for Inpatient Patient admitted to: Inpatient With expected LOS: >2 Midnights Patient will require the following post-hospital care: None Practitioner: I am a practitioner with admitting privileges, knowledge of patient current condition, hospital course, and medical plan of care. Services: Services provided to patient in accordance with Admission requirements found in Title 42 Section 412.3 of the Code of Federal Regulations Patient History Date of Service: 04/09/21 Reason for admission: Status post fall; generalized weakness History of Present Illness: Patient is a 71-year-old female who was found on the ground by her family. She had been down on the ground for quite a while. She states that it was probably about 2-4 hr. She had the strength to get up when she had fallen. She is having pain in her pelvic region as well as her bilateral hips. She was brought into the emergency room by EMS. She had a CT trauma g which always showed a wedge compression fracture that was chronic and L2-L3. There was no cord compression. Patient is still very lethargic. She appears to be dehydrated and her BUN and creatinine is elevated. No other abnormalities noted at all her lab workup. Should be worked up and monitored for syncope and collapse. We will monitor on telemetry and get carotid Doppler and echocardiogram. Allergies hydrocodone Adverse Reaction (Verified 04/09/21 20:17) Itching Home Medications: Acetaminophen [Tylenol Extra Strength] 500 mg PO Q6H PRN 01/02/21 Amlodipine Besylate 5 mg PO DAILY 01/02/21 Duloxetine HCl [Cymbalta] 30 mg PO DAILY 01/02/21 Meclizine HCl 25 mg PO TID PRN 01/02/21 Sotalol HCl [Sotalol AF] 80 mg PO TID 01/02/21 Guaifenesin/P-Ephed HCl [Mucinex D ER Tablet] 1 each PO BID 04/10/21 Warfarin Sodium [Coumadin*] 6 mg PO DAILY 04/10/21 - Past Medical/Surgical History Has patient received pneumonia vaccine in the past: Yes Diabetic: No -: Meniere's disease -: HTN -: Atrial fibrillation -: hernia surgery Psychosocial/ Personal History: lives alone - Family History Father Family History: Reviewed- Non-Contributory - Social History Smoking Status: Never smoker Alcohol use: No CD- Drugs: No Caffeine use: Yes Place of Residence: Home Review of Systems 10-point ROS is otherwise unremarkable Physical Examination - Vital Signs Temperature: 98.9 F Blood Pressure: 170/94 Pulse: 79 Respirations: 22 Pulse Ox (%): 96 - Physical Exam General: Alert, In no apparent distress, Confused HEENT: Atraumatic, PERRLA, Mucous membr. moist/pink, EOMI, Sclerae nonicteric Neck: Supple, 2+ carotid pulse no bruit, No LAD, Without JVD or thyroid abnormality Respiratory: Clear to auscultation bilaterally, Normal air movement Cardiovascular: Regular rate/rhythm, Normal S1 S2, No murmurs Gastrointestinal: Normal bowel sounds, Soft and benign, Non-distended, No tenderness Musculoskeletal: Tenderness (lower extremity) Integumentary: No rashes Neurological: Normal speech, Normal tone, Sensation intact, Cranial nerves 3-12 intact, Abnormal gait, Abnormal strength, Abnormal affect Lymphatics: No axilla or inguinal lymphadenopathy - Studies Laboratory Data (last 24 hrs) 04/09/21 14:40: PT 24.0 H, INR 2.07 04/09/21 14:40: Sodium 146 H, Potassium 3.0 L, BUN 23 H, Creatinine 0.97, Glucose 109 H, Magnesium 2.0, Total Bilirubin 1.0, AST 32, ALT 30, Alkaline Phosphatase 68, Lipase 48 L 04/09/21 14:06: WBC 9.10, Hgb 14.3, Hct 42.8, Plt Count 275 Assessment & Plan - Problems (Diagnosis) (1) Status post fall Current Visit: Yes Status: Acute (2) Atrial fibrillation with rapid ventricular response Onset Date: 08/12/14 Current Visit: No Status: Acute (3) CHF (congestive heart failure) Onset Date: 08/12/14 Current Visit: No Status: Acute (4) Syncope and collapse Current Visit: Yes Status: Acute (5) Wedge compression fracture of lumbar vertebra Current Visit: Yes Status: Acute Qualifiers: Lumbar vertebra fracture level: unspecified lumbar vertebra Fracture type: closed - Plan 1. Physical therapy evaluation 2. Monitoring telemetry and monitor her cardiac status 3. Anti-platelet therapy and statin therapy 4. Lipid profile in the morning 5. MRI of the brain/echocardiogram/carotid Doppler 6. Continue medication for rate control 7. Neurology consultation if symptoms do not improve 8. Strict blood pressure control 9. Neuro checks every 6 hr 10. GI and DVT prophylaxis Discharge Plan: Home Plan to discharge in: Greater than 2 days - Advance Directives Does patient have a Living Will: No Does patient have a Durable POA for Healthcare: No - Code Status/Comfort Care Code Status Assessed: Yes Code Status: Full Code Critical Care: No Time Spent Managing PTS Care (In Minutes): 45
[2021-04-10] MEDS ORDERED: PNEUMOCOCCAL VACCINE 0.5 ML IMVAC ONE (12:00)
[2021-04-11] MEDS: ACETAMINOPHEN 500 MG TAB PO PRN ×2 (01:30→05:13)
[2021-04-11] MEDS: NA CHLORIDE 0.9% 1,000 ML IV SCH (02:45)
[2021-04-11] MEDS: DULOXETINE 30 MG CAP PO SCH (08:41)
[2021-04-11] MEDS: AMLODIPINE 5 MG TAB PO SCH (08:41)
[2021-04-11] MEDS: SOTALOL HCL 80 MG TAB PO SCH ×3 (08:42→20:46)
--- NOTE | 2021-04-11 10:42 | P.PN ---
Subjective Date of Service: 04/10/21 Patient is clinically doing well. She is feeling better. Strength is somewhat improved. is wanting patient go to [place] for fpc therapy. Will Consult physical therapy Review of Systems 10-point ROS is otherwise unremarkable Physical Examination - Vital Signs Temperature: 97.2 F Blood Pressure: 167/112 Pulse: 86 Respirations: 18 Pulse Ox (%): 99 - Physical Exam General: Alert, In no apparent distress, Oriented x3 Respiratory: Clear to auscultation bilaterally, Normal air movement Cardiovascular: Regular rate/rhythm, Normal S1 S2 Gastrointestinal: Normal bowel sounds, Soft and benign, Non-distended, No tenderness Musculoskeletal: No clubbing, No swelling, No tenderness Neurological: Sensation intact, Cranial nerves 3-12 intact, Abnormal gait, Abnormal strength - Studies Microbiology Data (last 24 hrs): 04/09/21 17:44 Catheterized Urine [place] Count - Final No growth. 04/09/21 17:44 Catheterized Urine - Final No growth. Medications List Reviewed: Yes Assessment & Plan - Problems (Diagnosis) (1) Status post fall Current Visit: Yes Status: Acute (2) Atrial fibrillation with rapid ventricular response Onset Date: 08/12/14 Current Visit: No Status: Acute (3) CHF (congestive heart failure) Onset Date: 08/12/14 Current Visit: No Status: Acute (4) Syncope and collapse Current Visit: Yes Status: Acute (5) Wedge compression fracture of lumbar vertebra Current Visit: Yes Status: Acute Qualifiers: Lumbar vertebra fracture level: unspecified lumbar vertebra Fracture type: closed - Plan Continue plan of care as mentioned below: 1. Physical therapy evaluation 2. Monitoring telemetry and monitor her cardiac status 3. Anti-platelet therapy and statin therapy 4. Lipid profile in the morning 5. MRI of the brain/echocardiogram/carotid Doppler 6. Continue medication for rate control 7. Monitor electrolytes 8. Strict blood pressure control 9. Neuro checks every 6 hr 10. GI and DVT prophylaxis Discharge Plan: Home Plan to discharge in: Greater than 2 days - Advance Directives Does patient have a Living Will: No Does patient have a Durable POA for Healthcare: No - Code Status/Comfort Care Code Status: Full Code Critical Care: No Time Spent Managing PTS Care (In Minutes): 35
[2021-04-11] MEDS ORDERED: VALSARTAN 160 MG TAB PO ONE (10:44)
[2021-04-11 11:46] LABS: Absolute Lymphocytes (CBC) 1.2 K/uL (0.7-4.9); Basophils % 0.5 % (0-1.3); Hematocrit 38.2 % (36.0-45.0); Lymphocytes % 15.9 % (15.3-44.8); MPV 9.6 fL (7.6-11.3); RBC Red Blood Cell Count 4.17 M/uL (3.86-4.86)
[2021-04-11 12:53] LABS: Magnesium 1.8 mg/dL (1.8-2.4); Potassium 4.1 mmol/L (3.5-5.1)
[2021-04-11] MEDS: MUCINEX DM 12HR.SR TAB PO SCH ×2 (15:19→20:52)
[2021-04-11] MEDS: WARFARIN SODIUM 6 MG TAB PO SCH (17:08)
[2021-04-11] MEDS: MECLIZINE HCL 12.5 MG TAB PO PRN (20:46)
[2021-04-11] MEDS: VALSARTAN 160 MG TAB PO SCH (20:47)
--- NOTE | 2021-04-11 23:09 | P.PN ---
Date of Service: 04/11/21 Subjective Patient is clinically improving. Her strength is better. She is better hydrated. Continue with syncope workup Review of Systems 10-point ROS is otherwise unremarkable Physical Examination - Vital Signs Reviewed - Physical Exam General: Alert, In no apparent distress, Oriented x3 Respiratory: Clear to auscultation bilaterally, Normal air movement Cardiovascular: Regular rate/rhythm, Normal S1 S2 Gastrointestinal: Normal bowel sounds, Soft and benign, Non-distended, No tenderness Musculoskeletal: No clubbing, No swelling, No tenderness Neurological: Sensation intact, Cranial nerves 3-12 intact, Abnormal gait, Abnormal strength Assessment & Plan - Problems (Diagnosis) (1) Status post fall Current Visit: Yes Status: Acute (2) Atrial fibrillation with rapid ventricular response Onset Date: 08/12/14 Current Visit: No Status: Acute (3) CHF (congestive heart failure) Onset Date: 08/12/14 Current Visit: No Status: Acute (4) Syncope and collapse Current Visit: Yes Status: Acute (5) Wedge compression fracture of lumbar vertebra Current Visit: Yes Status: Acute Qualifiers: Lumbar vertebra fracture level: unspecified lumbar vertebra Fracture type: closed - Plan Continue plan of care as mentioned below: 1. Physical therapy evaluation pending 2. Monitoring telemetry and monitor her cardiac status; 3. Anti-platelet therapy and statin therapy 4. Lipid profile 5. Echocardiogram/carotid Doppler 6. Continue medication for rate control 7. Monitor electrolytes 8. Strict blood pressure control 9. Neuro checks stable 10. GI and DVT prophylaxis Discharge Plan: Home Plan to discharge in: Greater than 2 days - Advance Directives Does patient have a Living Will: No Does patient have a Durable POA for Healthcare: No - Code Status/Comfort Care Code Status: Full Code Critical Care: No Time Spent Managing PTS Care (In Minutes): 35
[2021-04-12] MEDS: MECLIZINE HCL 12.5 MG TAB PO PRN (06:11)
[2021-04-12] MEDS: ACETAMINOPHEN 500 MG TAB PO PRN (06:11)
[2021-04-12 06:38] LABS: Absolute Lymphocytes (CBC) 1.3 K/uL (0.7-4.9); Basophils % 0.4 % (0-1.3); Hematocrit 36.6 % (36.0-45.0); Lymphocytes % 17.8 % (15.3-44.8); MPV 9.3 fL (7.6-11.3)
[2021-04-12 06:48] LABS: Protime INR 1.38
[2021-04-12] MEDS ORDERED: TRAMADOL HCL 50 MG TAB PO PRN (07:00)
[2021-04-12 07:41] LABS: ALT/SGPT 25 U/L (12-78); AST/SGOT 28 U/L (15-37); Albumin 2.7 g/dL (3.4-5.0); Alkaline Phosphatase 60 U/L (45-117); BUN Blood Urea Nitrogen 12 mg/dL (7-18); Bicarbonate 24 mmol/L (21-32); Bilirubin Total 0.6 mg/dL (0.2-1.0); Glucose Level 90 mg/dL (74-106); HDL Cholesterol 48 mg/dL (40-60); LDL Cholesterol, Calculated 62 (<130); Magnesium 1.8 mg/dL (1.8-2.4); NT PRO-BNP 972 pg/mL (<125); Potassium 3.7 mmol/L (3.5-5.1); Protein, Total 6.8 g/dL (6.4-8.2); Sodium Level 141 mmol/L (136-145)
[2021-04-12 08:23] LABS: Folic Acid, (Folate) 6.7 ng/mL (3.1-17.5)
[2021-04-12] MEDS: VALSARTAN 160 MG TAB PO SCH ×2 (09:00→20:49)
[2021-04-12] MEDS: SOTALOL HCL 80 MG TAB PO SCH ×3 (09:19→20:49)
[2021-04-12] MEDS: DULOXETINE 30 MG CAP PO SCH (09:19)
[2021-04-12] MEDS: MUCINEX DM 12HR.SR TAB PO SCH ×2 (09:19→20:50)
[2021-04-12] MEDS: AMLODIPINE 5 MG TAB PO SCH (09:19)
--- NOTE | 2021-04-12 09:40 | RAD REPORT ---
EXAM DESCRIPTION: - CP - 04/12/2021 6:53 am CLINICAL HISTORY: Syncope Headache, drowsiness COMPARISON: No comparisons TECHNIQUE: Real-time sonographic evaluation of both carotid systems was performed. Doppler interroga tion was performed with waveform tracing bilaterally. FINDINGS: Normal high resistance waveforms are noted in both external carotid arteries. The common c arotid arteries and internal carotid arteries show normal low resistance waveforms. Small soft plaque is present at the left carotid bulb. Peak systolic and end diastolic velocity value s and the ICA/CCA ratios are in the non-hemodynamically significant range. Antegrade flow seen in both vertebral arteries. IMPRESSION: Small soft plaque is present involving the left carotid bulb. No evidence of a hemodynamically significant stenosis.
--- NOTE | 2021-04-12 15:06 | P.PN ---
Subjective Date of Service: 04/12/21 Chief Complaint: Status post fall; generalized weakness Subjective: Improving, Doing well Physical Examination - Vital Signs Temperature: 97.7 F Blood Pressure: 134/81 Pulse: 106 Respirations: 15 Pulse Ox (%): 100 - Studies Medications List Reviewed: Yes Assessment & Plan Discharge Plan: Other ([facility] facility) Plan to discharge in: 48 Hours Physician Review Additional Text: COVID: negative CT Head/Neck/Chest/Ab/Pelvis: COMPARISON: <Comparisons> TECHNIQUE: CT head without contrast. CT cervical spine without contrast with coronal and sagittal reformatted images. CT chest, abdomen and pelvis without contrast with coronal and sagittal reformatted images of the spine. All CT scans are performed using dose optimization technique as appropriate and may include automated exposure control or mA/KV adjustment according to patient size. FINDINGS: CT HEAD WITHOUT CONTRAST: No intracranial hemorrhage, hydrocephalus or extra-axial fluid collection. Moderate generalized brain atrophy is present with mild periventricular and deep white matter chronic microvascular ischemic changes. No areas of brain edema or midline shift. The paranasal sinuses and mastoids are clear. The calvarium is intact. CT CERVICAL SPINE WITHOUT CONTRAST: No fracture or subluxation. Moderate multilevel cervical degenerative changes. The prevertebral soft tissues are normal in thickness. CT CHEST, ABDOMEN, PELVIS WITHOUT CONTRAST: NOTE: Lack of contrast is a significant limitation in the assessment of trauma r elated findings. Specifically, solid organ, vascular and bowel evaluation is significantly limited. The lungs are clear.Moderate hiatal hernia.No pneumothorax or pericardial/pleural fluid. No evidence of intra-abdominal visceral injury, free fluid or free air is seen within the above detailed limitations. Fibroid uterus. No fractures. Chronic L1 and L2 anterior wedge compression deformities. IMPRESSION: Negative for acute traumatic findings within the above detailed limitations. Carotid Doppler: COMPARISON: No comparisons TECHNIQUE: Real-time sonographic evaluation of both carotid systems was performed. Doppler interrogation was performed with waveform tracing bilaterally. FINDINGS: Normal high resistance waveforms are noted in both external carotid arteries. The common carotid arteries and internal carotid arteries show normal low resistance waveforms. Small soft plaque is present at the left carotid bulb. Peak systolic and end diastolic velocity values and the ICA/CCA ratios are in the non-hemodynamically significant range. Antegrade flow seen in both vertebral arteries. IMPRESSION: Small soft plaque is present involving the left carotid bulb. No evidence of a hemodynamically significant stenosis. CXR: COMPARISON: Chest Single View dated 01/02/2021; Chest Single View dated 12/16/2020; CHEST SINGLE VIEW dated 08/11/2014 FINDINGS: Portable technique limits examination quality. The lungs are emphysematous but grossly clear. Right apex is partially obscured by patient's chin. The heart is normal in size. No displaced fractures. IMPRESSION: Prominent COPD. Hip Xray: COMPARISON: Hip Right 2 View dated 04/09/2021 FINDINGS: Moderate osteoarthritic changes involve the right hip. No acute fracture, dislocation or AVN. Physical Exam: GENERAL: The patient is a well-developed, well-nourished, in no apparent distress. Alert and oriented x3. VITAL SIGNS: Reviewed HEENT: Neck supple. LUNGS: Clear to auscultation. No crackles or wheezes are heard. HEART: Regular rate and rhythm, no appreciable gallops, rubs, murmurs or extra heart sounds ABDOMEN: Soft, nontender, and nondistended. Positive bowel sounds. No hepatosplenomegaly was noted. EXTREMITIES: Without any cyanosis, clubbing, rash, lesions or peripheral edema. NEUROLOGIC: Back pain noted SKIN: Normal color, turgor and temperature. No ulcerations or rashes noted. 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 Patient willing to go to skilled facility. Awaiting placement approval. Atrial fibrillation with rapid ventricular rate on chronic anticoagulation therapyCoumadin: Continue Coumadin maintain INR between 2 and 3. Continue sotalol 80 mg 1 pill 3 times a day. Chronic L1-L2 anterior wedge compression deformity with back pain: Will provide medication for pain. Continue with physical therapy. Fall precaution in place. Hypertension: Continue with valsartan and Norvasc Code Status: Full Code DVT prophylaxis: Coumadin Advanced Care Planning-30 minutes: Awaiting approval for skilled placement Time Spent Managing Pts Care (In Minutes): 55
[2021-04-12] MEDS: WARFARIN SODIUM 6 MG TAB PO SCH (17:00)
[2021-04-12] MEDS: LIDOCAINE 4% PATCH TOP SCH (18:18)
--- NOTE | 2021-04-13 06:28 | P.PN ---
Subjective Date of Service: 04/13/21 Chief Complaint: Status post fall; generalized weakness Subjective: Improving, Doing well Physical Examination - Vital Signs Temperature: 98.7 F Blood Pressure: 136/86 Pulse: 106 Respirations: 20 Pulse Ox (%): 96 - Studies Medications List Reviewed: Yes Assessment & Plan Discharge Plan: Other (SNF) Plan to discharge in: 48 Hours Physician Review Additional Text: COVID: negative CT Head/Neck/Chest/Ab/Pelvis: COMPARISON: <Comparisons> TECHNIQUE: CT head without contrast. CT cervical spine without contrast with coronal and sagittal reformatted images. CT chest, abdomen and pelvis without contrast with coronal and sagittal reformatted images of the spine. All CT scans are performed using dose optimization technique as appropriate and may include automated exposure control or mA/KV adjustment according to patient size. FINDINGS: CT HEAD WITHOUT CONTRAST: No intracranial hemorrhage, hydrocephalus or extra-axial fluid collection. Moderate generalized brain atrophy is present with mild periventricular and deep white matter chronic microvascular ischemic changes. No areas of brain edema or midline shift. The paranasal sinuses and mastoids are clear. The calvarium is intact. CT CERVICAL SPINE WITHOUT CONTRAST: No fracture or subluxation. Moderate multilevel cervical degenerative changes. The prevertebral soft tissues are normal in thickness. CT CHEST, ABDOMEN, PELVIS WITHOUT CONTRAST: NOTE: Lack of contrast is a significant limitation in the assessment of trauma related findings. Specifically, solid organ, vascular and bowel evaluation is significantly limited. The lungs are clear.Moderate hiatal hernia.No pneumothorax or pericardial/pleural fluid. No evidence of intra-abdominal visceral injury, free fluid or free air is seen within the above detailed limitations. Fibroid uterus. No fractures. Chronic L1 and L2 anterior wedge compression deformities. IMPRESSION: Negative for acute traumatic findings within the above detailed limitations. Carotid Doppler: COMPARISON: No comparisons TECHNIQUE: Real-time sonographic evaluation of both carotid systems was performed. Doppler interrogation was performed with waveform tracing bilaterally. FINDINGS: Normal high resistance waveforms are noted in both external carotid arteries. The common carotid arteries and internal carotid arteries show normal low resistance waveforms. Small soft plaque is present at the left carotid bulb. Peak systolic and end diastolic velocity values and the ICA/CCA ratios are in the non-hemodynamically significant range. Antegrade flow seen in both vertebral arteries. IMPRESSION: Small soft plaque is present involving the left carotid bulb. No evidence of a hemodynamically significant stenosis. CXR: COMPARISON: Chest Single View dated 01/02/2021; Chest Single View dated 12/16/2020; CHEST SINGLE VIEW dated 08/11/2014 FINDINGS: Portable technique limits examination quality. The lungs are emphysematous but grossly clear. Right apex is partially obscured by patient's chin. The heart is normal in size. No displaced fractures. IMPRESSION: Prominent COPD. Hip Xray: COMPARISON: Hip Right 2 View dated 04/09/2021 FINDINGS: Moderate osteoarthritic changes involve the right hip. No acute fracture, dislocation or AVN. Physical Exam: GENERAL: The patient is a well-developed, well-nourished, in no apparent distress. Alert and oriented x3. VITAL SIGNS: Reviewed HEENT: Neck supple. LUNGS: Clear to auscultation. No crackles or wheezes are heard. HEART: Atrial fibrillation rate controlled ABDOMEN: Soft, nontender, and nondistended. Positive bowel sounds. No hepatosplenomegaly was noted. EXTREMITIES: Without any cyanosis, clubbing, rash, lesions or peripheral edema. NEUROLOGIC: Back pain improved SKIN: Normal color, turgor and temperature. No ulcerations or rashes noted. 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 Patient to continue to work with physical therapy, Occupational Therapy. Patient willing to go to skilled facility. Awaiting placement approval. Atrial fibrillation with rapid ventricular rate on chronic anticoagulation therapyCoumadin: Rate controlled. Continue Coumadin maintain INR between 2 and 3. Continue sotalol 80 mg 1 pill 3 times a day. Chronic L1-L2 anterior wedge compression deformity with back pain: Will provide medication for pain. Continue with physical therapy. Fall precaution in place. Hypertension: Continue with valsartan and Norvasc Code Status: Full Code DVT prophylaxis: Coumadin Advanced Care Planning-30 minutes: Awaiting approval for skilled placement. Left message with brother to discuss plan of care. Time Spent Managing Pts Care (In Minutes): 55
--- NOTE | 2021-04-13 07:05 | ECHO ---
HEIGHT: 5 ft 8 in WEIGHT: 150 lb 0 oz DATE OF STUDY: 04/12/[address]: Becki Purvis MD 2-DIMENSIONAL: YES M.MODE: YES DOPPLER: YES COLOR FLOW: YES TDS: NO PORTABLE: NO DEFINITY: NO BUBBLE STUDY: NO DIAGNOSIS: SYNCOPE CARDIAC HISTORY: CATHERIZATION: NO SURGERY: NO PROSTHETIC VALVE: NO PACEMAKER: NO MEASUREMENTS (cm) DIASTOLIC (NORMALS) SYSTOLIC (NORMALS) IVSd 0.9 (0.6-1.2) LA Diam 3.4 (1.9-4.0) LVEF 51% LVIDd 4.2 (3.5-5.7) LVIDs 3.2 (2.0-3.5) %FS 25% LVPWd 0.9 (0.6-1.2) Ao Diam 2.8 (2.0-3.7) 2 DIMENSIONAL ASSESSMENT: RIGHT ATRIUM: ENLARGED LEFT ATRIUM: ENLARGED RIGHT VENTRICLE: NORMAL LEFT VENTRICLE: NORMAL TRICUSPID VALVE: MITRAL VALVE: PULMONIC VALVE: NORMAL AORTIC VALVE: PERICARDIAL EFFUSION: NONE AORTIC ROOT: NORMAL LEFT VENTRICULAR WALL MOTION: NORMAL DOPPLER/COLOR FLOW: SEE BELOW COMMENTS: LOW NORMAL LEFT VENTRICULAR EJECTION FRACTION 50-55%. SEVERE TRICUSPID REGURGITATION. MODERATE MITRAL REGURGITATION. MILD AORTIC REGURGITATION. BI-ATRIAL ENLARGEMENT. TECHNOLOGIST: Ta BYERS
[2021-04-13 07:35] LABS: Potassium 3.9 mmol/L (3.5-5.1)
[2021-04-13] MEDS: VALSARTAN 160 MG TAB PO SCH ×2 (08:44→20:25)
[2021-04-13] MEDS: LIDOCAINE 4% PATCH TOP SCH (08:44)
[2021-04-13] MEDS: DULOXETINE 30 MG CAP PO SCH (08:44)
[2021-04-13] MEDS: MUCINEX DM 12HR.SR TAB PO SCH ×2 (08:45→20:24)
[2021-04-13] MEDS: AMLODIPINE 5 MG TAB PO SCH (08:45)
[2021-04-13] MEDS: SOTALOL HCL 80 MG TAB PO SCH ×3 (08:46→20:24)
[2021-04-13 11:53] VITALS: O2SAT 95
--- NOTE | 2021-04-13 15:27 | P.DS ---
Admission Date: 04/09/21 Discharge Date: 04/13/21 Primary Care Provider: unknown Disposition: TRANSFER TO SNF - MEDICAL Discharge Condition: GOOD Reason for Admission: Status post fall; generalized weakness Consultations: Cardiology-Dr. Banda Procedures: COVID: negative CT Head/Neck/Chest/Ab/Pelvis: COMPARISON: <Comparisons> TECHNIQUE: CT head without contrast. CT cervical spine without contrast with coronal and sagittal reformatted images. CT chest, abdomen and pelvis without contrast with coronal and sagittal reformatted images of the spine. All CT scans are performed using dose optimization technique as appropriate and may include automated exposure control or mA/KV adjustment according to patient size. FINDINGS: CT HEAD WITHOUT CONTRAST: No intracranial hemorrhage, hydrocephalus or extra-axial fluid collection. Moderate generalized brain atrophy is present with mild periventricular and deep white matter chronic microvascular ischemic changes. No areas of brain edema or midline shift. The paranasal sinuses and mastoids are clear. The calvarium is intact. CT CERVICAL SPINE WITHOUT CONTRAST: No fracture or subluxation. Moderate multilevel cervical degenerative changes. The prevertebral soft tissues are normal in thickness. CT CHEST, ABDOMEN, PELVIS WITHOUT CONTRAST: NOTE: Lack of contrast is a significant limitation in the assessment of trauma related findings. Specifically, solid organ, vascular and bowel evaluation is significantly limited. The lungs are clear.Moderate hiatal hernia.No pneumothorax or pericardial/pleural fluid. No evidence of intra-abdominal visceral injury, free fluid or free air is seen within the above detailed limitations. Fibroid uterus. No fractures. Chronic L1 and L2 anterior wedge compression deformities. IMPRESSION: Negative for acute traumatic findings within the above detailed limitations. Carotid Doppler: COMPARISON: No comparisons TECHNIQUE: Real-time sonographic evaluation of both carotid systems was performed. Doppler interrogation was performed with waveform tracing bilaterally. FINDINGS: Normal high resistance waveforms are noted in both external carotid arteries. The common carotid arteries and internal carotid arteries show normal low resistance waveforms. Small soft plaque is present at the left carotid bulb. Peak systolic and end diastolic velocity values and the ICA/CCA ratios are in the non-hemodynamically significant range. Antegrade flow seen in both vertebral arteries. IMPRESSION: Small soft plaque is present involving the left carotid bulb. No evidence of a hemodynamically significant stenosis. CXR: COMPARISON: Chest Single View dated 01/02/2021; Chest Single View dated 12/16/2020; CHEST SINGLE VIEW dated 08/11/2014 FINDINGS: Portable technique limits examination quality. The lungs are emphysematous but grossly clear. Right apex is partially obscured by patient's chin. The heart is normal in size. No displaced fractures. IMPRESSION: Prominent COPD. Hip Xray: COMPARISON: Hip Right 2 View dated 04/09/2021 FINDINGS: Moderate osteoarthritic changes involve the right hip. No acute fracture, dislocation or AVN. 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 Patient reported that she was on the ground for about 2 to 4 hours. She had poor strength. She had pain to the pelvic region and hips. She was sent to the ER for further evaluation. CT scan showed wedge compression fracture that appeared chronic to the L1-L2 region. There was no cord compression. Patient appeared dehydrated. Patient was admitted for further evaluation and treatment. Hospital Course: Patient presented with syncope with collapse and fall. She was found on the ground for several hours. Patient was also dehydrated. Patient had atrial fibrillation with RVR. Patient was admitted for treatment. During the course of her stay patient improved. Patient did work with physical therapy and Occupational Therapy to improve her mobility. Patient found to have a chronic L1-L2 anterior wedge compression deformity with back pain. No other fracture was identified. This was controlled with lidocaine patch. Patient was evaluated for skilled placement. Patient has been approved. At discharge the patient will continue with physical therapy and rehabilitation at the skilled facility. At discharge patient will continue with lidocaine patch to the back daily as needed for pain. Patient may also take Tylenol 500 mg every 8 hours as needed for pain. Patient will continue with Cymbalta 30 mg daily. Fall precautions in place. Recommend follow-up with PCP within 1 week to follow-up his hospitalization and continue her care. As mentioned above patient presented with atrial fibrillation with RVR. Patient with history of chronic atrial fibrillation on chronic anticoagulation therapyC oumadin. Her medications were restarted with better control. At discharge rate controlled. At discharge she will continue with sotalol 80 mg 1 pill 3 times a day and Coumadin 6 mg daily. Recommend to recheck INR every week to maintain INR between 2-3. Recommend follow-up with cardiology and PCP within 1 week to follow-up his hospitalization. Patient with hypertension. At discharge the patient will continue with Norvasc 5 mg daily and valsartan 160 mg 1 pill twice daily. Recommend to maintain blood pressure less than 130/80. Further adjustment can be done by her PCP. Vital Signs/Physical Exam: Temp Pulse Resp BP Pulse Ox 98.7 F 106 H 20 136/86 96 04/13/21 15:03 04/13/21 15:03 04/13/21 15:03 04/13/21 15:03 04/13/21 15:03 General: Alert, In no apparent distress, Oriented x3, Cooperative HEENT: Atraumatic Neck: Supple Respiratory: Clear to auscultation bilaterally, Normal air movement Cardiovascular: Other (Atrial fibrillation rate controlled) Gastrointestinal: Normal bowel sounds, No ascites Musculoskeletal: No erythema, No tenderness, No warmth Integumentary: No tenderness/swelling Neurological: Normal speech, Normal strength at 5/5 x4 extr, Normal tone, Normal affect Laboratory Data at Discharge: WBC 7.50 K/uL (4.3-10.9) 04/12/21 06:15 Hgb 12.3 g/dL (12.0-15.0) 04/12/21 06:15 Hct 36.6 % (36.0-45.0) 04/12/21 06:15 Plt Count 223 K/uL (152-406) 04/12/21 06:15 PT 15.9 SECONDS (9.5-12.5) H 04/12/21 06:15 INR 1.38 04/12/21 06:15 Sodium 140 mmol/L (136-145) 04/13/21 07:14 Potassium 3.9 mmol/L (3.5-5.1) 04/13/21 07:14 BUN 15 mg/dL (7-18) 04/13/21 07:14 Creatinine 0.71 mg/dL (0.55-1.3) 04/13/21 07:14 Glucose 92 mg/dL (74-106) 04/13/21 07:14 Magnesium 1.8 mg/dL (1.8-2.4) 04/12/21 06:15 Total Bilirubin 0.6 mg/dL (0.2-1.0) 04/12/21 06:15 AST 28 U/L (15-37) 04/12/21 06:15 ALT 25 U/L (12-78) 04/12/21 06:15 Alkaline Phosphatase 60 U/L (45-117) 04/12/21 06:15 Triglycerides 108 mg/dL (<150) 04/12/21 06:15 Cholesterol 132 mg/dL (<200) 04/12/21 06:15 HDL Cholesterol 48 mg/dL (40-60) 04/12/21 06:15 Cholesterol/HDL Ratio 2.75 04/12/21 06:15 Lipase 48 U/L (73-393) L 04/09/21 14:40 Home Medications: Acetaminophen [Tylenol Extra Strength] 500 mg PO Q6H PRN 01/02/21 Amlodipine Besylate 5 mg PO DAILY 01/02/21 Duloxetine HCl [Cymbalta] 30 mg PO DAILY 01/02/21 Meclizine HCl 25 mg PO TID PRN 01/02/21 Sotalol HCl [Sotalol AF] 80 mg PO TID 01/02/21 Warfarin Sodium [Coumadin*] 6 mg PO DAILY 04/10/21 Lidocaine 4% Patch [Lidoderm 5% Patch*] 1 patch TOP DAILY #30 patch 04/13/21 Valsartan [Diovan*] 160 mg PO BID #60 tab 04/13/21 New Medications: Valsartan [Diovan*] 160 mg PO BID #60 tab Lidocaine 4% Patch [Lidoderm 5% Patch*] 1 patch TOP DAILY #30 patch Physician Discharge Instructions: Patient presented with syncope with collapse and fall. She was found on the ground for several hours. Patient was also dehydrated. Patient had atrial fibrillation with RVR. Patient was admitted for treatment. During the course of her stay patient improved. Patient did work with physical therapy and Occupational Therapy to improve her mobility. Patient found to have a chronic L1-L2 anterior wedge compression deformity with back pain. No other fracture was identified. This was controlled with lidocaine patch. Patient was evaluated for skilled placement. Patient has been approved. At discharge the patient will continue with physical therapy and rehabilitation at the skilled facility. At discharge patient will continue with lidocaine patch to the back daily as needed for pain. Patient may also take Tylenol 500 mg every 8 hours as needed for pain. Patient will continue with Cymbalta 30 mg daily. Fall precautions in place. Recommend follow-up with PCP within 1 week to follow-up his hospitalization and continue her care. As mentioned above patient presented with atrial fibrillation with RVR. Patient with history of chronic atrial fibrillation on chronic anticoagulation therapyCoumadin. Her medications were restarted with better control. At discharge rate controlled. At discharge she will continue with sotalol 80 mg 1 pill 3 times a day and Coumadin 6 mg daily. Recommend to recheck INR every week to maintain INR between 2-3. Recommend follow-up with cardiology and PCP within 1 week to follow-up his hospitalization. Patient with hypertension. At discharge the patient will continue with Norvasc 5 mg daily and valsartan 160 mg 1 pill twice daily. Recommend to maintain blood pressure less than 130/80. Further adjustment can be done by her PCP. Diet: AHA Activity: Fall precautions Followup: WHIT SHERMAN [Primary Care Provider] - Time spent managing pt's care (in minutes): 55
[2021-04-13] MEDS: WARFARIN SODIUM 6 MG TAB PO SCH (15:36)
[2021-04-13 17:34] VITALS: TEMP 97.3
[2021-04-13 20:30] VITALS: BP 126/74
--- NOTE | 2021-04-18 09:34 | CON ---
Date of Consultation: 04/12/[address] Purvis's service on 04/09/2021. The patient was seen on 04/12/2021. Reason For Consultation: Atrial fibrillation with rapid ventricular response. History Of Present Illness: Mrs. Colón is a 71. She came into the emergency room really with no cardi ac complaint, but she had just fallen, was found on the floor. She was on the floor for hours, compl ained of hip pain and neck pain and was found to be in atrial fibrillation. No cardiac complaint fro m her standpoint. Allergies: SHE IS ALLERGIC TO HYDROCODONE. Medications At Home: Include Norvasc, Cymbalta, sotalol, valsartan, and warfarin. Physical Examination: Vital Signs: She was in atrial fibrillation at a rate of 110. Afebrile. The rest of her vital sign s were stable. General: No complaints. No acute distress. HEENT: Negative. Neck: Supple with no bruit. Chest: Clear. Cardiac: Revealed atrial fibrillation. Abdomen: Benign. Extremities: Revealed no clubbing, cyanosis, or edema. Diagnostic Data: Basically her laboratory evaluation was fairly unremarkable. Her BNP was 972. She was COVID negative. Chest x-ray revealed COPD. She had a carotid artery ultrasound that showed no hemodynamically significant stenosis. Echocardiogram that was done revealed an ejection fraction of 51% with moderate mitral regurgitation and mild aortic regurgitation. Impression And Plan: 1.Chronic atrial fibrillation. The patient is already taking warfarin. She had taken sotalol. We do not need to make any changes in that regard. 2.Hypertension, well controlled, on valsartan and amlodipine. 3.Chronic obstructive pulmonary disease by x-ray. 4.Depression. I do not feel the need of changing her medical therapy at home or here. I am comfort able with her going home whenever it is okay with Dr. Purvis and we will see her in the office as an ou tpatient. ZULY/CAROLYN Voice ID: [id number] Report ID: [id number]
== END 2021-04-13 20:50 | DRG 309 ==
LOC: ER 13:44 → ERHOLD 18:20 → 2ND 19:29
PROVIDERS: ADMIT Hospitalist; ATTEND Family Medicine
DX: I48.20 Chronic atrial fibrillation, unspecified (principal); M62.82 Rhabdomyolysis; S32.000A Wedge compression fracture of unspecified lumbar vertebra, initial encounter for closed fracture; E86.0 Dehydration; M54.9 Dorsalgia, unspecified; M54.2 Cervicalgia; I11.0 Hypertensive heart disease with heart failure; I50.9 Heart failure, unspecified; F32.A Depression, unspecified; J44.9 Chronic obstructive pulmonary disease, unspecified; N19 Unspecified kidney failure; M79.604 Pain in right leg; E87.6 Hypokalemia; M25.552 Pain in left hip; M25.551 Pain in right hip; R29.6 Repeated falls; R55 Syncope and collapse; W18.30XA Fall on same level, unspecified, initial encounter; Z88.5 Allergy status to narcotic agent; Z79.01 Long term (current) use of anticoagulants; Z79.899 Other long term (current) drug therapy; Z60.2 Problems related to living alone; Z20.822 Contact with and (suspected) exposure to COVID-19
CPT/HCPCS: 36415; 70450; 71045; 71250; 72125; 72170; 80048; 80053; 80061; 80076; 81003; 82550; 82553; 82607; 82746; 83540; 83605; 83690; 83735; 83880; 84132; 84439; 84443; 84484; 85025; 85610; 87040; 87086; 87088; 93005; 93306; 93880; 97161; 97530; 99284; J3475; J3480; J7030; J7040; U0003

== ENCOUNTER 2021-07-24 16:53 | Emergency (ER) | payer OTHER, SELFPAY ==
--- OUTSIDE RECORDS SUMMARY | 2021-07-24 16:57 | XMS REPORT | Continuity of Care Document ---
:1950 Author Organization [facility] t Address [address] [place] [address] Care Team Providers Name Role Phone Magnolia Rivera Attending Clinician Unavailable Namita-Mbayo_A_AH Attending Clinician Unavailable Namita-Mbayo_A_AH Admitting Clinician Unavailable Payers Payer Name Policy Type Policy Number Effective Date Expiration Date S scar [facility] [id number] 2019 [employer] 00:00:00 (MEDICARE REPLACEMENT/ADVANT AGE - HMO) Problems This patient has no known problems. [...] Date Date Medication? Clinician (SIG) Name Name Norvasc Norvasc Yes Na Rivera 1 tablet [facility] Yes Na Rivera [address] [facility] Yes Na Rivera [address] [facility] Sodium Sodium in the [facility] Mirtazapine Mirtazapine Yes Na Rivera [address] [facility] Immunizations Ordered Filled Immunization Date Status Comments [facility] e Immunization Name Name Ralph Rosas 2018-05-[address] [facility] Procedures This patient has no known procedures. Encounters Start End Encounter Admission Attending Care Care Encounter Source Date/Time Date/Time Type Type Clinicians Facility Department ID 2021-07-14 Outpatient Marianne Rivera [facility] [id number] [facility] 11:18:10 [id number] [facility] 2021-07-14 Outpatient Marianne Rivera [facility] [id number] [facility] [address] 11:07:33 [id number] [facility] 2021-07-14 Outpatient Marianne Rivera [facility] [id number] [facility] [address] 11:03:24 [id number] [facility] 2021-03-15 2021-03-15 Outpatient [facility] [id number] [facility] 2021-02-09 2021-02-09 Outpatient [facility] [id number] [facility] 2020-11-04 2020-11-04 Outpatient [facility] [id number] [facility] 2020-09-02 2020-09-02 Out[facility] [id number] [facility] 2020-08-17 2020-08-17 Outpatient [facility] [id number] [facility] 2020-02-04 2020-02-04 [facility] [id number] [facility] 14:16:00 14:16:00 t [facility] l Medicine Outpat[facility] ent Clinics 2019-09-24 2019-09-24 [facility] [id number] [facility] 15:00:00 15:00:00 t scanR [facility] Clinics 2019-08-15 2019-08-15 Outpatient Namita-Mbayo VFP VFP [id number] [facility] 05:51:00 05:51:00 _A_AH [id number] Family Practic e 2019-08-15 2019-08-15 Outpatient Namita-Mbayo VFP VFP [id number] [facility] 05:51:00 05:51:00 _A_AH [id number] Family Practic e 2019-08-15 2019-08-15 Outpatient Namita-Mbayo VFP VFP [id number] [facility] 05:51:00 05:51:00 _A_AH [id number] Family Practic e 2019-04-15 2019-04-15 [facility] [id number] [facility] 14:40:00 14:40:00 t scanR [facility] Medicine Outpati ent Clinics 2018-11-22 2018-11-22 [facility] [id number] [facility] 13:40:00 13:40:00 t scanR [facility] Medicine l Medicine Outpati ent Clinics 2018-08-22 2018-08-22 [facility] [id number] [facility] 14:30:00 14:30:00 t scanR [facility] Medicine Outpati ent Clinics 2018-05-24 2018-05-24 [facility] [id number] [address] 14:30:00 14:30:00 t scanR [facility] l Medicine Outpat[facility] ent Clinics 2018-02-22 2018-02-22 Outpatient Franky Lopez [id number] 08:45:00 08:45:00 t [employer] [facility] Results This patient has no known results.
[2021-07-24] MEDS ORDERED: ONDANSETRON 4 MG (ODT) TAB ONE (17:25)
[2021-07-24] MEDS ORDERED: ACETAMINOPHEN 500 MG TAB ONE (17:25)
--- NOTE | 2021-07-24 18:07 | RAD REPORT ---
EXAM DESCRIPTION: RAD - Pelvis - 07/24/2021 5:48 pm CLINICAL HISTORY: Right hip pain status post injury FINDINGS: No fracture or dislocation is seen. Bones are osteoporotic If the patient continues to have symptoms to suggest an occult fracture then MRI would be recommended
--- NOTE | 2021-07-24 18:09 | RAD REPORT ---
EXAM DESCRIPTION: RAD - Femur Right - 07/24/2021 5:48 pm CLINICAL HISTORY: Leg pain FINDINGS: No fracture is seen. Small chronic calcification adjacent to the greater trochanter right femur
--- NOTE | 2021-07-24 18:20 | RAD REPORT ---
EXAM DESCRIPTION: CT - Head C Spine Mpr Wo Con - 07/24/2021 5:52 pm CLINICAL HISTORY: Head and neck injury status post fall. Head and neck pain COMPARISON: 2020 TECHNIQUE: Computed axial tomography of the head and cervical spine was obtained. Sagittal and coronal reconstruction was performed. All CT scans are performed using dose optimization technique as appropriate and may include automated exposure control or mA/KV adjustment according to patient size. FINDINGS: An intracranial bleed is not seen. The ventricles are normal in caliber. An extra-axial fl uid collection is not noted.Fluid within the visualized sinuses and mastoids is not seen A cervical fracture is not visualized. No dislocation is noted. IMPRESSION: No acute intracranial abnormality is seen. A cervical fracture is not visualized. If the patient continues to have symptoms to suggest intracra nial /spinal cord pathology then MRI would be recommended
--- NOTE | 2021-07-24 19:53 | RAD REPORT ---
EXAM DESCRIPTION: CT - Abdomen Pelvis Wo Contrast - 07/24/2021 7:29 pm CLINICAL HISTORY: Abdominal pain COMPARISON: 2020 TECHNIQUE: Computed axial tomography of the abdomen and pelvis was obtained. IV and oral contrast we re not requested. All CT scans are performed using dose optimization technique as appropriate and may include automated exposure control or mA/KV adjustment according to patient size. FINDINGS: The evaluation of solid organs, vessels and bowel is limited secondary to the lack of con trast administration. Liver, spleen, pancreas, adrenals, kidneys and bladder do not demonstrate traumatic injury. Old lumbar compression fractures. Small umbilical hernia. Moderate hiatal hernia. A cirrhotic liver is suspected. Fibroid uterus. Small hepatic cyst Mild anterior subluxation L4 on L5. IMPRESSION: No acute traumatic injury to abdomen/pelvis is seen
[2021-07-24] MEDS ORDERED: FENTANYL CITR 100 MCG/2 ML ONE (20:01)
[2021-07-24 20:05] LABS: Absolute Lymphocytes (CBC) 1.3 K/uL (0.7-4.9); Hematocrit 37.7 % (36.0-45.0); MPV 8.5 fL (7.6-11.3); RBC Red Blood Cell Count 4.26 M/uL (3.86-4.86)
[2021-07-24 20:43] LABS: Blood Morphology Comment NOT SEEN (NOT SEEN); Platelet Estimate ADEQ
--- NOTE | 2021-07-24 20:51 | ER ---
Nurse's Notes [facility] Name: Vidya Colón Age: 71 yrs Sex: Female : 1950 Arrival Date: 07/24/2021 Time: 17:03 Bed 15 Private MD: Diagnosis: Fall on same level, unspecified;Pain in right hip Presentation: 07/24 17:03 Chief complaint: Patient states: Fall from standing. Hit back of head on wall. Denies ss LOC. Pt c/o tenderness to back of head. Coronavirus screen: Client denies travel out of the [place] in the last 14 days. Ebola Screen: Patient denies exposure to infectious person. Patient denies travel to an Ebola-affected area in the 21 days before illness onset. Initial Sepsis Screen: Does the patient meet any 2 criteria? No. Patient's initial sepsis screen is negative. Does the patient have a suspected source of infection? No. Patient's initial sepsis screen is negative. Risk Assessment: Do you want to hurt yourself or someone else? Patient reports no desire to harm self or others. Onset of symptoms was July 24, 2021. 17:03 Method Of Arrival: Ambulatory ss 17:03 Acuity: NITA 3 ss 17:05 Care prior to arrival:. Transition of care: patient was received from another setting of care (long-term care facility), [facility]. 17:05 Method Of Arrival: EMS: [facility] ss Triage Assessment: 17:28 General: Appears in no apparent distress. comfortable, Behavior is calm, cooperative. ic1 Pain: Complains of pain in scalp. Neuro: Level of Consciousness is awake, alert, obeys commands, Oriented to person, place. Historical: - Allergies: 17:06 Hydrocodone; ss - PMHx: 17:07 Atrial fibrillation; ss - Immunization history:: Adult Immunizations up to date. - Social history:: Smoking status: Patient denies any tobacco usage or history of. Screenin:29 Abuse screen: Denies threats or abuse. Denies injuries from another. Nutritional ic1 screening: No deficits noted. Tuberculosis screening: No symptoms or risk factors identified. Fall Risk None identified. Assessment: 17:27 Reassessment: Reassessment: Pt brought in by [facility] for fall that occurred at nursing ic1 home. States she landed on the back of her head. Denies pos LOC. States she is on blood thinners. Pt c/o posterior head pain. 17:28 Pain: Complains of pain in scalp. ic1 19:20 Reassessment: Patient appears in no apparent distress at this time. No changes from lg3 previously documented assessment. Patient and/or family updated on plan of care and expected duration. Pain level reassessed. Patient is alert, oriented x 3, equal unlabored respirations, skin warm/dry/pink. Neuro: Level of Consciousness is awake, alert, obeys commands, Oriented to person, place, time, situation. Respiratory: Airway is patent Trachea midline Respiratory effort is even, unlabored, Respiratory pattern is regular, symmetrical. 21:03 Reassessment: Report called to [facility] and rehab, report given to nurse. lg3 Vital Signs: 17:28 BP 145 / 80; Pulse 99; Resp 16; Temp 98.7(O); Pulse Ox 100% on R/A; ic1 21:33 BP 239 / 81; Pulse 100; Resp 19 S; Pulse Ox 98% on R/A; lg3 ED Course: 17:03 Patient arrived in ED. ss 17:04 Colby Myers PA is PHCP. cp 17:04 Franco Llamas MD is Attending Physician. cp 17:04 Triage completed. ss 17:07 Arm band placed on right wrist. ss 17:29 Patient has correct armband on for positive identification. Call light in reach. Side ic1 rails up X2. 17:50 XRAY Pelvis In Process Unspecified. EDMS 17:50 XRAY Femur RIGHT In Process Unspecified. EDMS 17:53 CT Head C Spine In Process Unspecified. EDMS 19:18 Salome Summers, RN is Primary Nurse. lg3 19:19 Inserted saline lock: 22 gauge in right wrist, using aseptic technique. Blood collected.lg3 19:29 CT Abd/Pelvis - Without Contrast In Process Unspecified. EDMS 19:56 Basic Metabolic Panel Sent. lg3 19:56 CBC with Diff Sent. lg3 19:56 Type And Screen Sent. lg3 21:32 No provider procedures requiring assistance completed. IV discontinued, intact, lg3 bleeding controlled, No redness/swelling at site. Pressure dressing applied. Administered Medications: 17:26 Drug: Zofran (Ondansetron) 4 mg Route: PO; ic1 17:26 Drug: Tylenol 1000 mg Route: PO; ic1 20:00 Drug: fentaNYL (PF) 25 mcg Route: IVP; Site: right hand; lg3 20:00 Follow up: Response: No adverse reaction; RASS: Alert and Calm (0) lg3 Outcome: 20:51 Discharge ordered by MD. lawrence 21:32 Discharged to custodial. lg3 21:32 Condition: good 21:32 Discharge instructions given to patient, custodial, Instructed on discharge instructions, follow up and referral plans. 21:49 Patient left the ED. lg3 Signatures: Dispatcher [employer] EDMS Tyra Arzate RN RN Colby Myers PA PA Salome Hansen RN RN lg3 Nga Little RN RN ic1 Corrections: (The following items were deleted from the chart) 17:29 17:27 Reassessment: ic1 ic1
--- NOTE | 2021-07-24 20:51 | EDPHYS ---
Physician Documentation [facility] Name: Vidya Colón Age: 71 yrs Sex: Female : 1950 Arrival Date: 07/24/2021 Time: 17:03 Bed 15 Private MD: ED Physician Franco Llamas HPI: 07/24 17:20 This 71 yrs old Female presents to ER via EMS with complaints of Fall Injury. cp 17:20 Details of fall: The patient fell from an upright position, while standing. cp 17:20 Onset: The symptoms/episode began/occurred today. Associated injuries: The patient cp sustained injury to the head, right upper leg pain. Patient denies LOC and reports fall couple days ago causing bruise to left elbow. Historical: - Allergies: 17:06 Hydrocodone; ss - PMHx: 17:07 Atrial fibrillation; ss - Immunization history:: Adult Immunizations up to date. - Social history:: Smoking status: Patient denies any tobacco usage or history of. ROS: 17:30 Constitutional: Negative for body aches, chills, fever, poor PO intake. cp 17:30 Neck: Negative for pain with movement, pain at rest, stiffness. cp 17:30 Cardiovascular: Negative for chest pain. 17:30 Respiratory: Negative for cough, shortness of breath, wheezing. 17:30 Abdomen/GI: Negative for abdominal pain, nausea, vomiting, and diarrhea. 17:30 Back: Negative for pain at rest, pain with movement. 17:30 MS/extremity: Positive for pain, of the right upper leg, Negative for decreased range of motion, deformity, paresthesias. 17:30 Neuro: Positive for headache, Negative for altered mental status, loss of consciousness, weakness. 17:30 All other systems are negative. Exam: 17:33 ECG was reviewed by the Attending Physician. cp 17:35 Constitutional: The patient appears in no acute distress, alert, awake, cp non-diaphoretic, non-toxic, well developed, well nourished. 17:35 Head/face: Noted is tenderness, that is mild, of the left side of the back of head, cp left occipital area, right side of the back of head and right occipital area. 17:35 Eyes: Periorbital structures: appear normal, Pupils: equal, round, and reactive to light and accomodation, Extraocular movements: intact throughout, Conjunctiva: normal, no exudate, no injection, Lids and lashes: appear normal, bilaterally. 17:35 ENT: External ear(s): are unremarkable, Nose: is normal, Mouth: Lips: moist, Oral mucosa: moist. 17:35 Neck: C-spine: vertebral tenderness, is not appreciated, crepitus, is not appreciated, ROM/movement: is normal, is supple, without pain, no range of motions limitations, no nuchal rigidity. 17:35 Chest/axilla: Inspection: normal, Palpation: is normal, no crepitus, no tenderness. 17:35 Cardiovascular: Rate: tachycardic, Rhythm: irregular, Edema: is not appreciated, JVD: is not appreciated. 17:35 Respiratory: the patient does not display signs of respiratory distress, Respirations: normal, no use of accessory muscles, no retractions, labored breathing, is not present, Breath sounds: are clear throughout, no decreased breath sounds. 17:35 Abdomen/GI: Inspection: abdomen appears normal, Palpation: abdomen is soft and non-tender, in all quadrants. 17:35 Back: vertebral tenderness, is not appreciated. 17:35 Musculoskeletal/extremity: Extremities: grossly normal except: noted in the right femur: tenderness, There is no evidence of decreased ROM, deformity. 17:35 Neuro: Orientation: to person, place \T\ time. Mentation: is normal, Motor: moves all fours, strength is normal, Sensation: is normal. Vital Signs: 17:28 BP 145 / 80; Pulse 99; Resp 16; Temp 98.7(O); Pulse Ox 100% on R/A; ic1 21:33 BP 239 / 81; Pulse 100; Resp 19 S; Pulse Ox 98% on R/A; lg3 MDM: 17:13 Patient medically screened. cp 20:50 Data reviewed: vital signs, nurses notes, radiologic studies, CT scan, plain films. cp 20:50 Test interpretation: by ED physician or midlevel provider: plain radiologic studies. cp Counseling: I had a detailed discussion with the patient and/or guardian regarding: the historical points, exam findings, and any diagnostic results supporting the discharge/admit diagnosis, radiology results, to return to the emergency department if symptoms worsen or persist or if there are any questions or concerns that arise at home. Response to treatment: the patient's symptoms have mildly improved after treatment, and as a result, I will discharge patient. ED course: VS noted. Radiology studies negative for acute trauma. 07/24 18:43 Order name: CBC with Diff cp 07/24 17:16 Order name: CT Head C Spine; Complete Time: 18:30 cp 07/24 18:30 Interpretation: Reviewed report. cp 07/24 17:16 Order name: XRAY Pelvis; Complete Time: 18:30 cp 07/24 19:55 Interpretation: Report reviewed. 07/24 20:42 Order name: Manual Differential EDMS 07/24 17:16 Order name: XRAY Femur RIGHT; Complete Time: 18:30 cp 07/24 17:16 Order name: EKG; Complete Time: 17:17 cp 07/24 17:16 Order name: EKG - Nurse/Tech; Complete Time: 17:31 cp 07/24 18:43 Order name: CT Abd/Pelvis - Without Contrast; Complete Time: 19:54 cp 07/24 19:54 Interpretation: Report reviewed. cp 07/24 18:43 Order name: IV; Complete Time: 19:18 cp 07/24 18:43 Order name: Labs collected and sent; Complete Time: 19:56 cp 07/24 20:10 Order name: Labs - recollect needed: All labs need redraw per phlebotomy lp1 EC:33 Rate is 104 beats/min. Rhythm is irregular. QRS interval is normal. QT interval is cp normal. T waves are Inverted in leads aVR, V2. Interpreted by me. Reviewed by me. Administered Medications: 17:26 Drug: Zofran (Ondansetron) 4 mg Route: PO; ic1 17:26 Drug: Tylenol 1000 mg Route: PO; ic1 20:00 Drug: fentaNYL (PF) 25 mcg Route: IVP; Site: right hand; lg3 20:00 Follow up: Response: No adverse reaction; RASS: Alert and Calm (0) lg3 Disposition: 21:00 Chart complete. 07/25 06:56 Co-signature as Attending Physician, Franco Llamas MD. rn Disposition Summary: 07/24/21 20:51 Discharge Ordered Location: Home cp Problem: new cp Symptoms: have improved cp Condition: Stable cp Diagnosis - Fall on same level, unspecified cp - Pain in right hip cp Followup: cp - With: Private Physician - When: 1 - 2 days - Reason: Recheck today's complaints Discharge Instructions: - Discharge Summary Sheet cp - Hip Pain cp Forms: - Medication Reconciliation Form cp - Thank You Letter cp - Antibiotic Education cp - Prescription Opioid Use cp Signatures: Dispatcher [employer] EDMS Franco Llamas MD MD rn Smirch, Shelby RN RN ss Isabella Hernandez RN RN lp1 Colby Myers PA PA cp Gibson, Lacie RN RN lg3 Nga Little RN RN ic1
[2021-07-24 22:42] VITALS: TEMP 98.7
[2021-07-24 22:43] VITALS: BP 239/81; O2SAT 98
--- NOTE | 2021-07-26 11:34 | EKG ---
Test Date: 2021-07-24 Test Time: 17:27:53 Quality Control Expert: HODAN MEASUREMENT RESULTS: Intervals: Rate: 104 AL: QRSD: 86 QT: 334 QTc: 439 [place]: P: AL: QRS: 249 T: -19 INTERPRETIVE STATEMENTS: Accelerated Junctional rhythm with frequent premature ventricular complexes Right superior axis deviation Low voltage QRS Cannot rule out Anteroseptal infarct, age undetermined Abnormal ECG Compared to ECG 04/09/2021 13:54:52 Accelerated junctional rhythm now present Ventricular premature complex(es) now present Right superior axis now present Atrial fibrillation no longer present ST (T wave) deviation no longer present Possible ischemia no longer present Myocardial infarct finding still present Electronically Signed On 07-26-21 11:30:39 CLINICAL PSYCHOLOGY PROFESSOR by Romero Almonte
== END 2021-07-24 21:49 | disposition home or self-care (01) ==
LOC: ER 16:53
DX: M25.551 Pain in right hip (principal); W18.30XA Fall on same level, unspecified, initial encounter; Z88.5 Allergy status to narcotic agent
CPT/HCPCS: 93005; 85025; 70450; 72125; 74176; 72170; 73552; 96374; 99284; J3010

== ENCOUNTER 2021-09-08 09:29 | Emergency (ER) | payer OTHER ==
--- OUTSIDE RECORDS SUMMARY | 2021-09-08 09:32 | XMS REPORT | Continuity of Care Document ---
:1950 Author Organization [facility] t Address [address] [place] [address] [address] [place] [address] Care Team Providers Name Role Phone Magnolia Rivera Attending Clinician Unavailable Namita-Mbayo_A_AH Attending Clinician Unavailable Namita-Sincereayo_A_AH Admitting Clinician Unavailable Payers Payer Name Policy Type Policy Number Effective Date Expiration Date S [facility] [id number] 2019 [employer] 00:00:00 (MEDICARE REPLACEMENT/ADVANT AGE - [...] [facility] Yes Na Rivera [address] [facility] Yes Na Rivera [address] [facility] Sodium Sodium in the [facility] Mirtazapine Mirtazapine Yes Na Rivera [address] [facility] at bedtime [facility] Immunizations Ordered Filled Immunization Date Status Comments [facility] e Immunization Name Name Ralph Rosas 2018-05-[address] [facility] Procedures This patient has no known procedures. Encounters Start End Encounter Admission Attending Care Care Encounter Source Date/Time Date/Time Type Type Clinicians Facility Department ID 2021-07-14 Outpatient [facility] [id number] [facility] [address] 11:18:10 [id number] [facility] 2021-07-14 Out[facility] [id number] [facility] 11:07:33 [id number] [facility] 2021-07-14 Out[facility] [id number] [facility] [address] 11:03:24 [id number] [facility] 2021-03-15 2021-03-15 [facility] [id number] [facility] 2021-02-09 2021-02-09 Outpatient [facility] [id number] [facility] 2020-11-04 2020-11-04 Outpatient [facility] [id number] [facility] 2020-09-02 2020-09-02 Outpatient [facility] [id number] [facility] 2020-08-17 2020-08-17 Outpatient [facility] [id number] [facility] 2020-02-04 2020-02-04 [facility] [id number] [facility] 14:16:00 14:16:00 [facility] Outpat[facility] Clin[facility] 2019-09-24 2019-09-24 [facility] [id number] [facility] 15[facility]00:00 15:00:00 t [facility] Clin[facility] 2019-08-15 2019-08-15 Outpatient Namita-Mbayo VFP VFP [id number] [facility] 05:51:00 05:51:00 _A_AH [id number] Family Practic e 2019-08-15 2019-08-15 Outpatient Namita-Mbayo VFP [facility] [id number] [facility] 05:51:00 05:51:00 _A_AH [id number] Family Practic e 2019-08-15 2019-08-15 Outpatient Namita-Mbayo VFP [facility]FP [id number] [facility] 05:51:00 05:51:00 _A_AH [id number] Family Practic e 2019-04-15 2019-04-15 [facility] [id number] [facility] 14:40:00 14:40:00 t [facility] Clin[facility] 2018-11-22 2018-11-22 [facility] [id number] [facility] 13[facility]40:00 13:40:00 t [facility] l Medicine Outpati ent Clinics 2018-08-22 2018-08-22 [facility] [id number] [facility] 14:30:00 14:30:00 t [facility] Clin[facility] 2018-05-24 2018-05-24 [facility] [id number] [address] 14:30:00 14:30:00 t [facility] Clin[facility] 2018-02-22 2018-02-22 Outpatient Franyk Lopez [id number] 08:45:00 08:45:00 t [employer] [facility] Clin[facility] Results This patient has no known results.
--- NOTE | 2021-09-08 10:18 | RAD REPORT ---
EXAM DESCRIPTION: US - Extremity Venous Uni Ltd - 09/08/2021 10:03 am CLINICAL HISTORY: PAIN Leg swelling and edema. COMPARISON: Extrem Venous W Compress Ede dated 12/16/2020 FINDINGS: Right lower extremity venous system was interrogated with Doppler technique. Normal flow, compressibility and augmentation was noted. There is no DVT present. IMPRESSION: No evidence of right lower extremity deep venous thrombosis.
[2021-09-08] MEDS ORDERED: MORPHINE 2 MG/ML SYR ONE (10:58)
[2021-09-08 10:59] LABS: Absolute Lymphocytes (CBC) 1.1 K/uL (0.7-4.9); Hematocrit 39.3 % (36.0-45.0); Lymphocytes % 19.1 % (15.3-44.8); MPV 8.2 fL (7.6-11.3); RBC Red Blood Cell Count 4.38 M/uL (3.86-4.86)
[2021-09-08] MEDS ORDERED: ONDANSETRON 4 MG/2 ML VIAL ONE (10:59)
--- NOTE | 2021-09-08 11:06 | RAD REPORT ---
EXAM DESCRIPTION: RAD - Femur Right - 09/08/2021 10:50 am CLINICAL HISTORY: PAIN COMPARISON: Femur Right dated 07/24/2021 FINDINGS: Moderate osteoarthritis affects the right hip. No fracture, dislocation or AVN.
--- NOTE | 2021-09-08 11:09 | RAD REPORT ---
EXAM DESCRIPTION: RAD - Pelvis - 09/08/2021 10:50 am CLINICAL HISTORY: right groin pain Pelvic pain COMPARISON: Pelvis dated 07/24/2021 FINDINGS: No bone or joint abnormality.
--- NOTE | 2021-09-08 11:34 | EDPHYS ---
Physician Documentation [facility] Name: Vidya Colón Age: 71 yrs Sex: Female : 1950 Arrival Date: 09/08/2021 Time: 09:31 Bed 7 Private MD: ED Physician Franco Llamas HPI: 09/08 09:41 This 71 yrs old Female presents to ER via EMS with complaints of right leg pain. rn 09:41 The patient presents with pain. The complaints affect the medial aspect of right thigh rn and right quadriceps. Onset: The symptoms/episode began/occurred 3 week(s) ago. Modifying factors: The symptoms are alleviated by remaining still, the symptoms are aggravated by movement. Associated signs and symptoms: Pertinent positives: swelling, Pertinent negatives fever, rash, warmth, weakness. Severity of symptoms: At their worst the symptoms were moderate, in the emergency department the symptoms are unchanged. The patient has not experienced similar symptoms in the past. The patient has not recently seen a physician. Pt reports RLE pain and subjective swelling for a few weeks now, no recent trauma, did fall last month, seen here, told everything was negative. Denies hx of DVT/PE, sent here from skilled nursing for evaluation of DVT. Reports hx of lumbar fractures. No weakness of RLE. Reports pain as burning sensation.. Historical: - Allergies: 09:37 HYDROCODONE; ap3 - Home Meds: 09:37 acetaminophen 500 mg Oral cap 1 cap every 6 hours [Active]; amlodipine 5 mg tab ap3 [Active]; duloxetine 30 mg oral CDRS 1 cap once daily [Active]; lidocaine HCl topical [Active]; loperamide 2 mg Oral cap [Active]; loratadine 10 mg oral cap [Active]; meclizine 25 mg Oral cap [Active]; sotalol 80 mg Oral tab 1 tab [Active]; acetaminophen-codeine 300-30 mg oral tab [Active]; valsartan 160 mg oral cap [Active]; Xarelto 20 mg oral tab [Active]; - PMHx: 09:37 Atrial fibrillation; Dementia; Chronic back pain; Diabetes mellitus; ap3 Hypercholesterolemia; Hypertensive disorder; Congestive heart failure; Cerebral Infarction; wedge compression fracture of unspecified lumbar vertebra; - Immunization history:: Adult Immunizations up to date, Client reports receiving the 2nd dose of the Covid vaccine, Flu vaccine is up to date. - Social history:: Smoking status: Patient denies any tobacco usage or history of. - Family history:: not pertinent. - Hospitalizations: : No recent hospitalization is reported. ROS: 09:43 Constitutional: Negative for fever, chills, and weight loss, Eyes: Negative for injury, rn pain, redness, and discharge, Neck: Negative for injury, pain, and swelling, Cardiovascular: Negative for chest pain, palpitations, and edema, Respiratory: Negative for shortness of breath, cough, wheezing, and pleuritic chest pain, Abdomen/GI: Negative for abdominal pain, nausea, vomiting, diarrhea, and constipation, Back: Negative for injury and pain, MS/Extremity: Negative for injury and deformity, Skin: Negative for injury, rash, and discoloration, Neuro: Negative for headache, weakness, numbness, tingling, and seizure. Exam: 09:43 Constitutional: This is a well developed, well nourished patient who is awake, alert, rn and in no acute distress. Head/Face: Normocephalic, atraumatic. Cardiovascular: Regular rate and rhythm. No pulse deficits. Respiratory: Speaking full sentences, unlabored. Abdomen/GI: soft, non-tender, non-distended no masses MS/ Extremity: Pulses equal, no cyanosis. Neurovascular intact. Painful ROM with flexion of right hip, no skin changes, no open wounds, no ecchymosis. No pain with ROM of right knee/tib-fib/ankle/foot. Strong and equal DP pulses bilaterally. Neuro: Awake and alert, GCS 15 Vital Signs: 09:31 BP 160 / 100; Pulse 98; Resp 17; Temp 97.7(O); Pulse Ox 100% ; Weight 70.76 kg; Height ap3 5 ft. 4 in. (162.56 cm); 11:00 BP 140 / 90; Pulse 89; Pulse Ox 99% on R/A; ap3 09:31 Body Mass Index 26.78 (70.76 kg, 162.56 cm) ap3 MDM: 09:35 Patient medically screened. rn 11:32 Differential diagnosis: tendonitis, arthritis, radiculopathy, DVT. Data reviewed: vital rn signs, nurses notes, lab test result(s), radiologic studies, doppler, plain films, and as a result, I will discharge patient. Counseling: I had a detailed discussion with the patient and/or guardian regarding: the historical points, exam findings, and any diagnostic results supporting the discharge/admit diagnosis, lab results, radiology results, the need for outpatient follow up, to return to the emergency department if symptoms worsen or persist or if there are any questions or concerns that arise at home. Response to treatment: the patient's symptoms have mildly improved after treatment, and as a result, I will discharge patient. Special discussion: I discussed with the patient/guardian in detail that at this point there is no indication for admission to the hospital. It is understood, however, that if the symptoms persist or worsen the patient needs to return immediately for re-evaluation. Based on the history and exam findings, there is no indication for further emergent testing or inpatient evaluation. I discussed with the patient/guardian the need to see the primary care provider for further evaluation of the symptoms. 09/08 09:37 Order name: CBC with Diff rn 09/08 09:37 Order name: Basic Metabolic Panel rn 09/08 09:37 Order name: XRAY Femur RIGHT; Complete Time: 11:15 rn 09/08 09:37 Order name: XRAY Pelvis; Complete Time: 11:15 rn 09/08 09:37 Order name: CBC with Automated Diff; Complete Time: 11:15 EDMS 09/08 09:37 Order name: Basic Metabolic Panel; Complete Time: 11:32 EDMS 09/08 09:36 Order name: IV Start; Complete Time: 10:56 rn 09/08 09:37 Order name: Extremity Venous Uni Ltd US; Complete Time: 10:22 rn Administered Medications: 11:00 Drug: morphine 2 mg Route: IVP; Site: right antecubital; ap3 16:50 Follow up: Response: No adverse reaction ap3 11:00 Drug: Zofran (Ondansetron) 4 mg Route: IVP; Site: right antecubital; ap3 16:50 Follow up: Response: No adverse reaction ap3 Disposition Summary: 09/08/21 11:33 Discharge Ordered Location: Home rn Problem: an ongoing problem rn Symptoms: have improved rn Condition: Stable rn Diagnosis - Radiculopathy, lumbosacral region rn - Pain in right leg rn - Other specified arthritis, right hip rn Followup: rn - With: Private Physician - When: As needed - Reason: Recheck today's complaints, Re-evaluation by your physician Discharge Instructions: - Discharge Summary Sheet rn - Arthritis rn - Lumbosacral Radiculopathy rn - Musculoskeletal Pain rn Forms: - Medication Reconciliation Form rn - Thank You Letter rn - 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
--- NOTE | 2021-09-08 11:34 | ER ---
Nurse's Notes [facility] Name: Vidya Colón Age: 71 yrs Sex: Female : 1950 Arrival Date: 09/08/2021 Time: 09:31 Bed 7 Private MD: Diagnosis: Radiculopathy, lumbosacral region;Pain in right leg;Other specified arthritis, right hip Presentation: 09/08 09:31 Chief complaint: EMS states: [facility]3 patient complaining of right leg pain x's 2 weeks. Patient reports her leg pain feels like a burning, stinging feeling in the right leg. She states she has a hx of DVT. Coronavirus screen: At this time, the client does not indicate any symptoms associated with coronavirus-19. Ebola Screen: No symptoms or risks identified at this time. Initial Sepsis Screen: Does the patient meet any 2 criteria? No. Patient's initial sepsis screen is negative. Does the patient have a suspected source of infection? No. Patient's initial sepsis screen is negative. Risk Assessment: Do you want to hurt yourself or someone else? Patient reports no desire to harm self or others. Onset of symptoms was August 25, 2021. 09:31 Method Of Arrival: EMS: [facility] ap3 09:31 Acuity: NITA 3 ap3 Triage Assessment: 09:44 General: Appears in no apparent distress. uncomfortable, Behavior is calm, cooperative, ap3 appropriate for age. Pain: Complains of pain in left leg Pain currently is 8 out of 10 on a pain scale. Quality of pain is described as burning, stinging, Pain began suddenly, 2 weeks ago Is intermittent. Neuro: Level of Consciousness is awake, alert, obeys commands, Oriented to person, place, time, situation, Appropriate for age Speech is normal. Cardiovascular: Patient's skin is warm and dry. Respiratory: Airway is patent Respiratory effort is even, unlabored, Respiratory pattern is regular, symmetrical. Musculoskeletal: Reports pain in right leg. Historical: - Allergies: 09:37 HYDROCODONE; ap3 - Home Meds: 09:37 acetaminophen 500 mg Oral cap 1 cap every 6 hours [Active]; amlodipine 5 mg tab ap3 [Active]; duloxetine 30 mg oral CDRS 1 cap once daily [Active]; lidocaine HCl topical [Active]; loperamide 2 mg Oral cap [Active]; loratadine 10 mg oral cap [Active]; meclizine 25 mg Oral cap [Active]; sotalol 80 mg Oral tab 1 tab [Active]; acetaminophen-codeine 300-30 mg oral tab [Active]; valsartan 160 mg oral cap [Active]; Xarelto 20 mg oral tab [Active]; - PMHx: 09:37 Atrial fibrillation; Dementia; Chronic back pain; Diabetes mellitus; ap3 Hypercholesterolemia; Hypertensive disorder; Congestive heart failure; Cerebral Infarction; wedge compression fracture of unspecified lumbar vertebra; - Immunization history:: Adult Immunizations up to date, Client reports receiving the 2nd dose of the Covid vaccine, Flu vaccine is up to date. - Social history:: Smoking status: Patient denies any tobacco usage or history of. - Family history:: not pertinent. - Hospitalizations: : No recent hospitalization is reported. Screenin:44 Abuse screen: Denies threats or abuse. Nutritional screening: No deficits noted. ap3 Tuberculosis screening: No symptoms or risk factors identified. Fall Risk Fall in past 12 months (25 points). Secondary diagnosis (15 points) dementia, No IV (0 pts). Ambulatory Aid- None/Bed Rest/Nurse Assist (0 pts). Gait- Weak (10 pts.). Mental Status- Oriented to own ability (0 pts). Total Figueroa Fall Scale indicates High Risk Score (45 or more points). Fall prevention measures have been instituted. Side Rails Up X 2 Placed Close to Nursing Station Frequent Obs/Assessments Occuring As available patient and family educated on Fall Prevention Program and Strategies. Assessment: 09:49 Reassessment: ultrasound at patients bedside. ap3 11:01 Reassessment: Patient and/or family updated on plan of care and expected duration. Pain ap3 level reassessed. Patient is alert, oriented x 3, equal unlabored respirations, skin warm/dry/pink. patient states she is still uncomfortable but is unable to give me a number on the pain scale at this time. Patient reports she was unable to sleep last night due to the discomfort. 12:16 General: report called to [facility]. ap3 12:21 Reassessment: Spoke with nurse at [facility] who states she will tell her transportation ss tech to have him come pick her up after his previous stop. 13:17 Reassessment: Awaiting facility transportation to pick patient up, patient currently jg9 sitting in a chair in the room awake, alert, and oriented in no distress, patient provided with a food tray, no additional needs at this time. 13:40 Reassessment: Spoke with Milton at [facility] who states it will be an 1-1.5 hours before ss transportation will be here. Vital Signs: 09:31 BP 160 / 100; Pulse 98; Resp 17; Temp 97.7(O); Pulse Ox 100% ; Weight 70.76 kg; Height ap3 5 ft. 4 in. (162.56 cm); 11:00 BP 140 / 90; Pulse 89; Pulse Ox 99% on R/A; ap3 09:31 Body Mass Index 26.78 (70.76 kg, 162.56 cm) ap3 ED Course: 09:31 Patient arrived in ED. ap3 09:35 Franco Llamas MD is Attending Physician. rn 09:37 Triage completed. ap3 09:45 Arm band placed on. ap3 09:45 Patient has correct armband on for positive identification. Bed in low position. Call ap3 light in reach. Side rails up X2. satellite project site monitor on. Pulse ox on. NIBP on. Door closed. Noise minimized. Warm blanket given. 09:48 Rocio Kelly, RN is Primary Nurse. ap3 10:05 Extremity Venous Uni Ltd US In Process Unspecified. EDMS 10:42 Inserted saline lock: 22 gauge in right antecubital area, using aseptic technique. ap3 Blood collected. 10:51 XRAY Femur RIGHT In Process Unspecified. EDMS 10:51 XRAY Pelvis In Process Unspecified. EDMS 12:00 No provider procedures requiring assistance completed. jg9 12:00 Patient did not have IV access during this emergency room visit. jg9 Administered Medications: 11:00 Drug: morphine 2 mg Route: IVP; Site: right antecubital; ap3 16:50 Follow up: Response: No adverse reaction ap3 11:00 Drug: Zofran (Ondansetron) 4 mg Route: IVP; Site: right antecubital; ap3 16:50 Follow up: Response: No adverse reaction ap3 Outcome: 11:33 Discharge ordered by . rn 12:[address] [facility] awaiting facility mail truck driver to come pick the patient up. jg9 12:00 Condition: stable 12:00 Discharge instructions given to patient, Instructed on discharge instructions, follow up and referral plans. Demonstrated understanding of instructions, follow-up care. 14:25 Patient left the ED. rn Signatures: Dispatcher [employer] EDFranco Swann MD MD rn Smirch, Shelby, RN RN ss Prokisch, Amanda, RN RN ap3 Gilmore, Jennifer, RN RN jg9
[2021-09-08 14:31] VITALS: TEMP 97.7
[2021-09-08 14:32] VITALS: BP 140/90; O2SAT 99
== END 2021-09-08 14:25 | disposition home or self-care (01) ==
LOC: ER 09:29
DX: M54.17 Radiculopathy, lumbosacral region (principal); M13.851 Other specified arthritis, right hip; E11.9 Type 2 diabetes mellitus without complications; F03.90 Unspecified dementia, unspecified severity, without behavioral disturbance, psychotic disturbance, mood disturbance, and anxiety; I10 Essential (primary) hypertension; I48.91 Unspecified atrial fibrillation; I50.9 Heart failure, unspecified; Z88.5 Allergy status to narcotic agent
CPT/HCPCS: 85025; 80048; 36415; 72170; 73552; 93971; 96375; 96374; 99284; J2270; J2405

== ENCOUNTER 2023-02-15 01:47 | Inpatient (IN) | payer OTHER ==
--- OUTSIDE RECORDS SUMMARY | 2023-02-15 01:50 | XMS REPORT | Continuity of Care Document ---
:1950 Author Organization [facility] t Address [address] [facility] [place] [address] Care Team Providers Name Role Phone Miguel Marianne Magnolia Attending Clinician Unavailable Namita-Mbayo_A_AH Attending Clinician Unavailable Namita-Mbayo_A_AH Admitting Clinician Unavailable Payers Payer Name Policy Type Policy Number Effective Date Expiration Date S scar [employer] MEDICARE C1 [id number] 2019 [facility] 00:00:[address] [facility] [employer] MEDICARE C1 [id number] 2019 [facility] radha 00:00:[address] - [facility] [employer] MEDICARE C1 [id number] 2019 [facility] radha 00:00:00 - [facility] [employer] MEDICARE C1 [id number] 2019 Common [facility] radha 00:00:00 - [facility] [employer] MEDICARE C1 [id number] 2019 Common Sp radha 00:00:00 - [facility] [id number] 2019 - [employer] 00:00:00 (MEDICARE REPLACEMENT/ADV ANTAGE - HMO) Problems Condition Condition Condition Status Onset Resolution Last Treating Co mments Source Name Details Category Date Date Treatment Clinician Date [id number] +5th digit Problem Active Co mmon eff Spirit 03/19/19*[facility] [id number] Chronic Problem Active Commo n diastolic Spirit congestive [facility] heart [facility] [id number] Essential Problem Active Comm on hypertensi Spirit on [facility] [id number] Seasonal Problem Active Comm on allergic Spirit rhinitis, - [facility] [id number] Unsteady Problem Active Commo n gait [facility] [id number] Urinary Problem Active Common tract Spirit infection - [facility] without [facility] Medical unspecifie Center d [id number] Depression Problem Active Co mmon with Spirit anxiety [facility] [id number] Recurrent Problem Active Com mon falls [facility] [id number] Fibromyalg Problem Active Co mmon ia Spirit [facility] [id number] Dizziness Problem Active Com [facility] [id number] Diarrhea, Problem Active Comm on unspecifie Spirit d type [facility] [id number] Primary Problem Active Common insomnia [facility] [id number] Osteopenia Problem Active Co mmon of lumbar [facility] spine [facility] [id number] Mixed Problem Active Common stress and Spirit urge - [facility] urinary [facility] Allergies, Adverse Reactions, Alerts Allergy Allergy Status Severity Reaction(s) Onset Inactive Treating Comm ents Source Name Type Date Date Clinician codeine codeine Active Unknown Common [facility] [address] Drug Active Unknown Common allergy [facility] Social History Social Habit Start Date Stop Date Quantity Comments Source History of Tobacco Use Co mmon [facility] Sex Assigned At Com [facility] Smoking Status Start Date Stop Date Source Never Smoker [facility] Medications Ordered Filled Start Stop Current Ordering Indication Dosage Frequency Signature Comments Components Source Medication Medication Date Date Medication? Clinician (SIG) Name Name Nystatin Nystatin 2020- No 1{appli BID Nystatin 951546 [id number] 02-09 cation_ [id number] UNIT/GM UNIT/GM 00:00: 00:00 to_affe UNIT/GM 00 :00 cted_ar ea} Nystatin Nystatin 2020- No 1{appli BID Nystatin [id number] [id number] 02-09 10 cation_ 260547 UNIT/GM UNIT/GM 00:00: 00:00 to_affe UNIT/GM 00 :00 cted_ar ea} Nystatin Nystatin 2020- No 1{appli BID Nystatin [id number] 545326 02-09 cation_ 129576 UNIT/GM UNIT/GM 00:00: 00:00 to_affe UNIT/GM 00 :00 cted_ar ea} Nystatin Nystatin 2020- No 1{appli BID Nystatin 230589 [id number] 02-09 cation_ 820477 UNIT/GM UNIT/GM 00:00: 00:00 to_affe UNIT/GM 00 :00 cted_ar ea} Acetaminoph Acetaminoph 2020- No QID Acetaminop en-Codeine en-Codeine 3-17 09-09 hen-Codein #3 300-30 #3 300-30 00:00: 00:00 e #3 MG MG 00 :00 300-30 MG Betapace 80 Betapace 80 No 1{table BID Betapace MG MG t} 80 MG Coumadin 4 Coumadin 4 No 1{table QD Coumadin 4 MG MG t} MG Norvasc 5 Norvasc 5 No 1{table QD Norvasc 5 MG MG t} MG Cymbalta 30 Cymbalta 30 No 1{capsu QD Cymbalta MG MG le} 30 MG Montelukast Montelukast No 1{table QD Montelukas Sodium 10 Sodium 10 t_in_th t Sodium MG MG e_eveni 10 MG ng} Cymbalta 30 Cymbalta 30 No 1{capsu QD Cymbalta MG MG le} 30 MG Meclizine Meclizine No Meclizine HCl 25 MG HCl 25 MG HCl 25 MG Norvasc 5 Norvasc 5 No 1{table QD Norvasc 5 MG MG t} MG Duloxetine Duloxetine No 1{capsu QD Duloxetine HCl 30 MG HCl 30 MG le} HCl 30 MG Coumadin 4 Coumadin 4 No 1{table QD Coumadin 4 MG MG t} MG Amlodipine Amlodipine No 1{table QD Amlodipine Besylate 5 Besylate 5 t} Besylate 5 MG MG MG Montelukast Montelukast No 1{table QD Montelukas Sodium 10 Sodium 10 t_in_th t Sodium MG MG e_eveni 10 MG ng} Betapace 80 Betapace 80 No 1{table BID Betapace MG MG t} 80 MG Flonase 50 Flonase 50 No 2{spray QD Flonase 50 MCG/DOSE MCG/DOSE _in_eac MCG/DOSE h_nostr il} Coumadin 1 Coumadin 1 No 1{table QD Coumadin 1 MG MG t} MG Coconut Oil Coconut Oil No Coconut 1000 MG 1000 MG Oil 1000 MG Coconut Oil Coconut Oil No Coconut Common 1000 MG 1000 MG Oil 1000 Spiri t MG [facility] Duloxetine Duloxetine No 1{capsu QD Duloxetine Common HCl 30 MG HCl 30 MG le} HCl 30 MG [facility] Amlodipine Amlodipine No 1{table QD Amlodipine Common Besylate 5 Besylate 5 t} Besylate 5 Spirit MG MG [facility] Flonase 50 Flonase 50 No 2{spray QD Flonase 50 Common MCG/DOSE MCG/DOSE _in_eac MCG/DOSE Spirit h_nostr - [facility] il} [facility] Montelukast Montelukast No 1{table QD Montelukas Common Sodium 10 Sodium 10 t_in_th t Sodium Spirit MG MG e_eveni 10 MG - [facility] ng} [facility] Cymbalta 30 Cymbalta 30 No 1{capsu QD Cymbalta Common MG MG le} 30 MG [facility] Betapace 80 Betapace 80 No 1{table BID Betapace Common MG MG t} 80 MG [facility] Norvasc 5 Norvasc 5 No 1{table QD Norvasc 5 Common MG MG t} MG [facility] Coumadin 1 Coumadin 1 No 1{table QD Coumadin 1 Common MG MG t} MG [facility] Duloxetine Duloxetine No Duloxetine Common HCl 30 MG HCl 30 MG HCl 30 MG [facility] Coumadin 4 Coumadin 4 No 1{table QD Coumadin 4 Common MG MG t} MG [facility] Meclizine Meclizine No Meclizine Common HCl 25 MG HCl 25 MG HCl 25 MG [facility] Oxybutynin Oxybutynin No BID Oxybutynin Common Chloride 5 Chloride 5 Chloride 5 Spirit MG MG MG - [facility] Norvasc 5 Norvasc 5 No 1{table QD Norvasc 5 MG MG t} MG amLODIPine amLODIPine No 1{table QD amLODIPine Besylate 5 Besylate 5 t} Besylate 5 MG MG MG Meclizine Meclizine No Meclizine HCl 25 MG HCl 25 MG HCl 25 MG Coumadin 1 Coumadin 1 No 1{table QD Coumadin 1 MG MG t} MG Coumadin 4 Coumadin 4 No 1{table QD Coumadin 4 MG MG t} MG Coconut Oil Coconut Oil No Coconut 1000 MG 1000 MG Oil 1000 MG Norvasc Norvasc Yes Na Rivera 1 tablet Co on [facility] Flonase Flonase Yes Na Rivera 2 spray in Common each Spirit nostril [facility] Coumadin Coumadin Yes Na Rivera 1 tablet Common [facility] Meclizine Meclizine Yes Na Rivera 1 tablet Common HCl HCl as needed [facility] Coumadin Coumadin Yes Na Rivera 1 tablet Common [facility] Cymbalta Cymbalta Yes Na Rivera 1 capsule Common [facility] Betapace Betapace Yes Na Rivera 1 tablet Common [facility] Coconut Oil Coconut Oil Yes Na Rivera as Common directed [facility] Norvasc Norvasc Yes Na Rivera 1 tablet Co on [facility] Montelukast Montelukast Yes Na Rivera 1 tablet Common Sodium Sodium in the Spirit evening [facility] Mirtazapine Mirtazapine Yes Na Rivera 1 tablets Common at bedtime [facility] DULoxetine DULoxetine No DULoxetine HCl 30 MG HCl 30 MG HCl 30 MG Cymbalta 30 Cymbalta 30 No 1{capsu QD Cymbalta MG MG le} 30 MG DULoxetine DULoxetine No 1{capsu QD DULoxetine HCl 30 MG HCl 30 MG le} HCl 30 MG Betapace 80 Betapace 80 No 1{table BID Betapace MG MG t} 80 MG Oxybutynin Oxybutynin No BID Oxybutynin Chloride 5 Chloride 5 Chloride 5 MG MG MG Flonase 50 Flonase 50 No 2{spray QD Flonase 50 MCG/DOSE MCG/DOSE _in_eac MCG/DOSE h_nostr il} Montelukast Montelukast No 1{table QD Montelukas Sodium 10 Sodium 10 t_in_th t Sodium MG MG e_eveni 10 MG ng} Norvasc 5 Norvasc 5 No 1{table QD Norvasc 5 MG MG t} MG amLODIPine amLODIPine No 1{table QD amLODIPine Besylate 5 Besylate 5 t} Besylate 5 MG MG MG Meclizine Meclizine No Meclizine HCl 25 MG HCl 25 MG HCl 25 MG Coumadin 1 Coumadin 1 No 1{table QD Coumadin 1 MG MG t} MG Coumadin 4 Coumadin 4 No 1{table QD Coumadin 4 MG MG t} MG Coconut Oil Coconut Oil No Coconut 1000 MG 1000 MG Oil 1000 MG DULoxetine DULoxetine No DULoxetine HCl 30 MG HCl 30 MG HCl 30 MG Cymbalta 30 Cymbalta 30 No 1{capsu QD Cymbalta MG MG le} 30 MG DULoxetine DULoxetine No 1{capsu QD DULoxetine HCl 30 MG HCl 30 MG le} HCl 30 MG Betapace 80 Betapace 80 No 1{table BID Betapace MG MG t} 80 MG Oxybutynin Oxybutynin No BID Oxybutynin Chloride 5 Chloride 5 Chloride 5 MG MG MG Flonase 50 Flonase 50 No 2{spray QD Flonase 50 MCG/DOSE MCG/DOSE _in_eac MCG/DOSE h_nostr il} Montelukast Montelukast No 1{table QD Montelukas Sodium 10 Sodium 10 t_in_th t Sodium MG MG e_eveni 10 MG ng} Flonase 50 Flonase 50 No 2{spray QD Flonase 50 MCG/DOSE MCG/DOSE _in_eac MCG/DOSE h_nostr il} Coumadin 1 Coumadin 1 No 1{table QD Coumadin 1 MG MG t} MG Meclizine Meclizine No Meclizine HCl 25 MG HCl 25 MG HCl 25 MG Duloxetine Duloxetine No Duloxetine HCl 30 MG HCl 30 MG HCl 30 MG Amlodipine Amlodipine No Amlodipine Besylate 5 Besylate 5 Besylate 5 MG MG MG Coconut Oil Coconut Oil No Coconut 1000 MG 1000 MG Oil 1000 MG Immunizations Ordered Immunization Filled Immunization Date Status Commen ts Source Name Name FluLUIS Rosas 2018-05-24 Completed [facility] 15:33:00 - [facility] FluAD FluAD 2018-05-24 Completed [facility] 15:33:00 - [facility] FluAD FluAD 2018-05-24 Completed [facility] 15:33:00 - [facility] FluAD FluAD 2018-05-24 Completed [facility] 15:33:00 - [facility] FluAD FluAD 2018-05-24 Completed [facility] 15:33:00 - [facility] FluAD FluAD 2018-05-24 Completed [facility] 00:00:00 - [facility] Procedures This patient has no known procedures. Encounters Start End Encounter Admission Attending Care Care Encounter Source Date/Time Date/Time Type Type Clinicians Facility Department ID 2021-12-27 Outpatient Rivera, Na STLMLC STLMLC [id number] Common 15:48:00 [id number] [facility] 2021-07-14 Outpatient Rivera, Na STLMLC STLMLC [id number] 2 Common 11:18:10 [id number] [facility] 2021-07-14 Outpatient Rivera, Na STLMLC STLMLC [id number] 2 Common 11:07:33 [id number] [facility] 2021-07-14 Outpatient Rivera, Na STLMLC STLMLC [id number] 2 Common 11:03:24 [id number] [facility] 2021-03-15 2021-03-15 (TEL) STLMLC STLMLC [id number] Co mmon 00:00:00 00:00:00 [facility] 2021-02-09 2021-02-09 (TEL) STLMLC STLMLC [id number] Co mmon 00:00:00 00:00:00 [facility] 2020-11-04 2020-11-04 OL DIG E/M STLMLC STLMLC [id number] Common 00:00:00 00:00:00 [facility] [place] Spir it MIN [facility] 2020-09-02 2020-09-02 [facility] [id number] Common 00:00:00 00:00:00 [facility] [place] [facility] 2020-08-17 2020-08-17 (TEL) [facility] [id number] Co mmon 00:00:00 00:00:00 [facility] 2020-02-04 2020-02-04 [facility] [id number] Common 14:16:00 14:16:[address] [facility] 2019-09-24 2019-09-24 [facility] [id number] Common 15:00:00 15:00:[address] [facility] 2019-08-15 2019-08-15 Outpatient Namita-Mbayo VFP VFP [id number] [facility] 05:51:00 05:51:00 _A_AH [id number] [facility] 2019-08-15 2019-08-15 Outpatient Namita-Mbayo VFP VFP [id number] [facility] 05:51:00 05:51:00 _A_AH [id number] Family Practic e 2019-08-15 2019-08-15 Outpatient Namita-Mbayo VFP VFP [id number] [facility] 05:51:00 05:51:00 _A_AH [id number] Family Practic e 2019-04-15 2019-04-15 [facility] [id number] Common 14:40:00 14:40:[address] [facility] 2018-11-22 2018-11-22 [facility] [id number] Common 13:40:00 13:40:[address] [facility] 2018-08-22 2018-08-22 [facility] [id number] Common 14:30:00 14:30:[address] [facility] 2018-05-24 2018-05-24 Outpatient Franky Lopez [id number] Common 14:30:00 14:30:[address] [facility] 2018-02-22 2018-02-22 Outpatient Franky Lopez [id number] Common 08:45:00 08:45:[address] [facility] Results This patient has no known results.
[2023-02-15] MEDS ORDERED: ONDANSETRON 4 MG/2 ML VIAL ONE (02:04)
[2023-02-15] MEDS ORDERED: MORPHINE 4 MG/ML SYR ONE (02:04)
[2023-02-15] MEDS ORDERED: D5 0.45 NS 1,000 ML IV ONE (02:05)
[2023-02-15 02:28] LABS: Absolute Lymphocytes (CBC) 2.1 K/uL (0.7-4.9); Hematocrit 35.9 % (36.0-45.0); Lymphocytes % 27.6 % (15.3-44.8); MCV 90.5 fL (80-100); MPV 8.4 fL (7.6-11.3); Platelets 276 thou/uL (152-406); RBC Red Blood Cell Count 3.97 M/uL (3.86-4.86)
[2023-02-15 02:54] LABS: Albumin 3.3 g/dL (3.4-5.0); Bilirubin Direct 0.1 mg/dL (0-0.2); Bilirubin Indirect, Calculated 0.2 mg/dL (0.2-0.8); Bilirubin Total 0.3 mg/dL (0.2-1.0); Magnesium 2.4 mg/dL (1.6-2.4); Potassium 4.3 mEq/L (3.5-5.1); Protein, Total 7.7 g/dL (6.4-8.2); Troponin High Sensitivity 9.1 pg/mL (<58.9)
--- NOTE | 2023-02-15 03:10 | ER ---
Nurse's Notes [facility] Name: Vidya Colón Age: 73 yrs Sex: Female : 1950 Arrival Date: 02/15/2023 Time: 01:47 Bed 4 Private MD: Diagnosis: Epistaxis;Acute posterior epistaxis right side, physical deconditioning, diastolic heart failure Presentation: 02/15 02:06 Chief complaint: EMS states: uncontrolled nose bleed that started 45 mins ago, and is jw7 on blood thinners. Coronavirus screen: At this time, the client does not indicate any symptoms associated with coronavirus-19. Ebola Screen: No symptoms or risks identified at this time. Initial Sepsis Screen: Does the patient meet any 2 criteria? No. Patient's initial sepsis screen is negative. Does the patient have a suspected source of infection? No. Patient's initial sepsis screen is negative. Risk Assessment: Do you want to hurt yourself or someone else? Patient reports no desire to harm self or others. Onset of symptoms was February 15, 2023. 02:06 Method Of Arrival: EMS: [facility] 7 02:06 Acuity: NITA 3 jw7 Triage Assessment: 02:11 General: Appears distressed, uncomfortable, obese, Behavior is calm, cooperative, jw7 anxious, crying. Pain: Denies pain. EENT: Nares with bleeding noted on right. Neuro: No deficits noted. Carvajal Agitation-Sedation Scale (RASS): 0 - Alert and Calm Level of Consciousness is awake, alert, obeys commands, Oriented to person, place, time, situation. Cardiovascular: No deficits noted. Capillary refill < 3 seconds Clubbing of nail beds is absent JVD is absent Patient's skin is warm and dry. Respiratory: Airway is patent Trachea midline Respiratory effort is even, unlabored, Respiratory pattern is regular, symmetrical, Sputum is bloody. GI: No deficits noted. No signs and/or symptoms were reported involving the gastrointestinal system. : No deficits noted. No signs and/or symptoms were reported regarding the genitourinary system. Derm: No deficits noted. No signs and/or symptoms reported regarding the dermatologic system. Skin is intact, is healthy with good turgor, is fragile, Skin is dry, Skin is normal, Skin temperature is warm. Musculoskeletal: No deficits noted. No signs and/or symptoms reported regarding the musculoskeletal system. Historical: - Allergies: 02:11 HYDROCODONE; jw7 - Home Meds: 02:11 acetaminophen 500 mg Oral cap 1 cap every 6 hours for pain [Active]; amlodipine 2.5 mg jw7 oral tablet 1 tab once for hypertension [Active]; acetaminophen-codeine 300-30 mg Oral tab 1 tab every 8 hours for pain [Active]; loperamide 2 mg Oral cap 1 cap every 6 hours [Active]; loratadine 10 mg Oral cap 1 cap once [Active]; meclizine 12.5 mg oral tablet 1 tab 3 times per day for vertigo [Active]; sotalol 80 mg Oral tab 1 tab 3 times per day [Active]; valsartan 160 mg Oral cap 1 tab twice a day for hypertension [Active]; Xarelto 20 mg Oral tab 1 tab every evening [Active]; Acidophilus Oral capsule 2 tabs daily [Active]; artificial tears(hypromellose) 0.3 % Opht drops 2 drops every 12 hours for dry eye [Active]; Biofreeze (menthol) 4 % topical gel 1 application every 6 to 8 hours for right hip [Active]; buspirone 5 mg Oral tablet 1 tab 3 times per day [Active]; cyclobenzaprine 10 mg Oral tablet 1 tab every 8 hours [Active]; Cymbalta 30 mg oral capsule,delayed release (e.c.) 1 cap once for major depressive disorder [Active]; Cymbalta 60 mg oral capsule,delayed release (e.c.) 1 cap once for major depressive disorder [Active]; furosemide 40 mg Oral tablet 1 tab 2 times per day [Active]; gabapentin 300 mg oral capsule 1 cap 3 times per day [Active]; Myrbetriq 50 mg oral Tablet, Extended Release 24 hr 1 tab once for bladder hyperactivity [Active]; potassium chloride 20 mEq Oral Tablet, ER Particles/Crystals 1 tab 2 times per day [Active]; - PMHx: 02:11 Atrial fibrillation; Cerebral infarction; chronic back pain; Congestive heart failure; jw7 Dementia; diabetes mellitus; Hypercholesterolemia; Hypertensive disorder; wedge compression fracture of unspecified lumbar vertebra; - Immunization history:: Adult Immunizations up to date. - Social history:: Smoking status: Patient denies any tobacco usage or history of. - Family history:: not pertinent. Screenin:17 [facility] ED Fall Risk Assessment (Adult) History of falling in the last 3 months, rv including since admission No falls in past 3 months (0 pts) Confusion or Disorientation No (0 pts) Intoxicated or Sedated No (0 pts) Impaired Gait Yes (1 pt) Mobility Assist Device Used Yes (1 pt) Altered Elimination Yes (1 pt) Score/Fall Risk Level 3 or more points = High Risk Oriented to surroundings, Maintained a safe environment, Educated pt \T\ family on fall prevention, incl call for assistance when getting out of bed, Assessed \T\ reinforced patient's understanding of fall precautions, Provided non-skid footwear, Hourly rounding (assess needs \T\ fall precautionary measures) done, Used ambulatory aids as needed (educated on \T\ assisted with), Used gait belt as appropriate Implemented a Fall Risk Plan of Care, Apply high fall risk patient identification: yellow non skid footwear/ fall signage, Placed fall mat w/ non beveled edge next to bed, Activated bed/chair alarm, Remained w/in arm's length of patient and in sight while toileting, Offered frequent toileting (1:1 observation), Remained with patient while ambulating, Utilized family, sitter, or virtual water supervisor as indicated. Abuse screen: Denies threats or abuse. Denies injuries from another. Nutritional screening: No deficits noted. Tuberculosis screening: No symptoms or risk factors identified. Assessment: 02:32 General: see triage assessment. jw7 03:25 Reassessment: Patient appears in no apparent distress at this time. No changes from jw7 previously documented assessment. Patient and/or family updated on plan of care and expected duration. Pain level reassessed. Patient is alert, oriented x 3, equal unlabored respirations, skin warm/dry/pink. 03:33 General: report given to JOSE MIGUEL Kowalski. jw7 Vital Signs: 01:56 BP 138 / 81; Pulse 108; Resp 18; Temp 97.5(T); Pulse Ox 96% on R/A; Weight 103.87 kg; oe Height 5 ft. 8 in. ; 03:25 BP 130 / 92; Pulse 96; Resp 15 S; Pulse Ox 97% on R/A; jw7 01:56 Body Mass Index 34.82 (103.87 kg, 172.72 cm) oe ED Course: 01:49 Patient arrived in ED. rv 01:49 Erwin Houston MD is Attending Physician. sp4 01:50 Loren Pinzon, JOSE MIGUEL is Primary Nurse. jw7 02:10 Inserted saline lock: 20 gauge in right hand, using aseptic technique. Blood collected. rv 02:11 Triage completed. jw7 02:11 Arm band placed on. jw7 02:17 CBC with Diff Sent. rv 02:17 LFT's Sent. rv 02:17 Magnesium Sent. rv 02:17 NT PRO-BNP Sent. rv 02:17 PT-INR Sent. rv 02:17 Troponin HS Sent. rv 02:18 Patient has correct armband on for positive identification. Provided Education on: NOSE rv BLEED. 02:31 XRAY Chest (1 view) In Process Unspecified. EDMS 03:09 Krish Baxter MD is Hospitalizing Provider. sp4 03:43 Assist provider with nosebleed control using rhino rocket placed for extensive packing as6 needs, Bleeding from both nares. Set up for procedure. Performed by Erwin Houston MD Bleeding stopped. Patient tolerated well. Patient admitted, IV remains in place. Administered Medications: 02:16 Drug: D5-1/2 NS IV 1000 ml Route: IV; Rate: 75 ml/hr; Site: right hand; rv 03:45 Follow up: Response: No adverse reaction; IV Status: Infusion continued upon admission; as6 IV Intake: 100ml 02:17 Drug: morphine IVP or IV 4 mg Route: IVP; Infused Over: 4 mins; Site: right hand; rv 03:45 Follow up: Response: No adverse reaction as6 02:17 Drug: Ondansetron IVP 4 mg Route: IVP; Site: right hand; rv 03:45 Follow up: Response: No adverse reaction as6 Medication: 02:18 VIS not applicable for this client. rv Intake: 03:45 IV: 100ml; Total: 100ml. as6 Outcome: 03:09 Decision to Hospitalize by Provider. sp4 03:44 Admitted to Med/surg accompanied by tech, via stretcher, room 206, with chart, Report as6 called to Meghana GILLESPIE 03:44 Condition: stable 03:44 Instructed on the need for admit. 03:46 Patient left the ED. as6 Signatures: Dispatcher [employer] Faheem Giraldo Ronaldo, RN RN rv Boo Ayala RN RN as6 Loren Pinzon RN RN jw7 Erwin Houston MD MD sp4
--- NOTE | 2023-02-15 03:10 | EDPHYS ---
Physician Documentation [facility] Name: Vidya Colón Age: 73 yrs Sex: Female : 1950 Arrival Date: 02/15/2023 Time: 01:47 Bed 4 Private MD: ED Physician Erwin Houston HPI: 02/15 01:51 This 73 yrs old Female presents to ER via Unassigned with complaints of acute sp4 nose bleed . 01:51 73-year-old female presents with EMS for acute moderate epistaxis starting estimated 45 sp4 minutes ago. Patient has bleeding mostly from the right nostril she is also spitting up copious amounts of blood. Patient is reportedly on Xarelto at the half-way.. Patient appears to have moderate to severe deconditioning and chronic immobility. On arrival patient is actively bleeding and spitting up blood.. 02:00 Patient's past medical history includes dementia with behavioral disturbances, major sp4 depressive disorder, depressive disorder without psychotic features, bilateral knee arthritis, abnormalities of gait and mobility, candidiasis, protein calorie malnutrition, there is cognitive communication deficit, long-term use of coagulants, low back pain, type 2 diabetes, hyperlipidemia, essential hypertension, atrial fibrillation, acute on chronic diastolic heart failure, sequela of cerebral infarction, seasonal allergic rhinitis, muscle weakness generalized, lack of coordination, need for assistance with personal care, diffuse osteoarthritis. Patient denied prior similar nosebleeds.. Patient's medications include, patient's half-way record specifies that patient is full code, patient's half-way physician is Dr. Janeth Bartlett , medications include acetaminophen 500 mg every 6 hours as needed, lactobacillus 2 tablets once a day, amlodipine 2.5 mg once a day, artificial tears as needed, buspirone 5 mg 3 times a day, cyclobenzaprine 10 mg every 8 hours, Cymbalta 30 mg at bedtime, Cymbalta 60 mg at bedtime, furosemide 40 mg 2 times a day, gabapentin 300 mg 3 times a day, loperamide 2 mg as needed diarrhea, loratadine 10 mg once a day, meclizine 12.5 mg as needed dizziness, Myrbetriq 50 mg mirabegron ER once a day, potassium chloride 20 mEq 2 times a day, sotalol 80 mg 3 times a day, Tylenol 3 1 tablet every 8 hours as needed low back pain also valsartan 160 mg 2 times a day, Xarelto 20 mg rivaroxaban 1 tablet by mouth at bedtime for atrial fibrillation.. Historical: - Allergies: 02:11 HYDROCODONE; jw7 - Home Meds: 02:11 acetaminophen 500 mg Oral cap 1 cap every 6 hours for pain [Active]; amlodipine 2.5 mg jw7 oral tablet 1 tab once for hypertension [Active]; acetaminophen-codeine 300-30 mg Oral tab 1 tab every 8 hours for pain [Active]; loperamide 2 mg Oral cap 1 cap every 6 hours [Active]; loratadine 10 mg Oral cap 1 cap once [Active]; meclizine 12.5 mg oral tablet 1 tab 3 times per day for vertigo [Active]; sotalol 80 mg Oral tab 1 tab 3 times per day [Active]; valsartan 160 mg Oral cap 1 tab twice a day for hypertension [Active]; Xarelto 20 mg Oral tab 1 tab every evening [Active]; Acidophilus Oral capsule 2 tabs daily [Active]; artificial tears(hypromellose) 0.3 % Opht drops 2 drops every 12 hours for dry eye [Active]; Biofreeze (menthol) 4 % topical gel 1 application every 6 to 8 hours for right hip [Active]; buspirone 5 mg Oral tablet 1 tab 3 times per day [Active]; cyclobenzaprine 10 mg Oral tablet 1 tab every 8 hours [Active]; Cymbalta 30 mg oral capsule,delayed release (e.c.) 1 cap once for major depressive disorder [Active]; Cymbalta 60 mg oral capsule,delayed release (e.c.) 1 cap once for major depressive disorder [Active]; furosemide 40 mg Oral tablet 1 tab 2 times per day [Active]; gabapentin 300 mg oral capsule 1 cap 3 times per day [Active]; Myrbetriq 50 mg oral Tablet, Extended Release 24 hr 1 tab once for bladder hyperactivity [Active]; potassium chloride 20 mEq Oral Tablet, ER Particles/Crystals 1 tab 2 times per day [Active]; - PMHx: 02:11 Atrial fibrillation; Cerebral infarction; chronic back pain; Congestive heart failure; jw7 Dementia; diabetes mellitus; Hypercholesterolemia; Hypertensive disorder; wedge compression fracture of unspecified lumbar vertebra; - Immunization history:: Adult Immunizations up to date. - Social history:: Smoking status: Patient denies any tobacco usage or history of. - Family history:: not pertinent. ROS: 01:51 Constitutional: Negative for fever, chills, and weight loss, ENT: Negative for injury, sp4 pain, and discharge, positive acute active nosebleed 01:51 All other systems are negative. sp4 Exam: 01:51 Constitutional: This is a well developed, well nourished patient who is awake, alert, sp4 positive moderate distress, positive active nosebleed and active hemoptysis. Moderate to severe physical deconditioning and immobility Head/Face: Normocephalic, atraumatic. Eyes: Pupils equal round and reactive to light, extra-ocular motions intact. Lids and lashes normal. Conjunctiva and sclera are not injected. Cornea within normal limits. Periorbital areas with no swelling, redness, or edema. ENT: Nares patent. Tympanic membranes are normal and external auditory canals are clear. Oropharynx with no redness, swelling, or masses, exudates, or evidence of obstruction, uvula midline. Mucous membranes moist. Positive active moderate right-sided nosebleed also hemoptysis secondary to swallowing blood. Neck: Trachea midline, no thyromegaly or masses palpated, and no cervical lymphadenopathy. Supple, full range of motion without nuchal rigidity, or vertebral point tenderness. Chest/axilla: Normal chest wall appearance and motion. Nontender with no deformity. No lesions are appreciated. Cardiovascular: Regular rate and rhythm with a normal S1 and S2. No gallops, murmurs, or rubs. Normal PMI, no JVD. No pulse deficits. Respiratory: Lungs have equal breath sounds bilaterally, clear to auscultation and percussion. No rales, rhonchi or wheezes noted. No increased work of breathing, no retractions or nasal flaring. Abdomen/GI: Soft, non-tender, with normal bowel sounds. No distension or tympany. No guarding or rebound. No evidence of tenderness throughout. Back: No spinal tenderness. No costovertebral tenderness. Skin: Warm, dry with normal turgor. Normal color with no rashes, no lesions, and no evidence of cellulitis. MS/ Extremity: Pulses equal, no cyanosis. Neurovascular intact. Patient is nonambulatory, bilateral lower extremity muscular atrophy secondary to immobility, bilateral lower extremity edema. This appears chronic. Neuro: Awake and alert, GCS 15, oriented to person, place, time, and situation. Cranial nerves II-XII grossly intact. Motor strength 5/5 in all extremities. Sensory grossly intact. Psych: Awake, alert, with orientation to person, place and time. Behavior, mood, and affect are within normal limits 02:25 ECG was reviewed by the Attending Physician. EKG time 0 2:15 AM, there is atrial sp4 fibrillation at the rate of 96, no ST elevation or depression, no ventricular ectopy, low voltage QRS noted, otherwise unremarkable no signs of acute ischemia Vital Signs: 01:56 BP 138 / 81; Pulse 108; Resp 18; Temp 97.5(T); Pulse Ox 96% on R/A; Weight 103.87 kg; oe Height 5 ft. 8 in. ; 03:25 BP 130 / 92; Pulse 96; Resp 15 S; Pulse Ox 97% on R/A; jw7 01:56 Body Mass Index 34.82 (103.87 kg, 172.72 cm) oe Procedures: 03:08 Epistaxis treatment: Copious amount of bleeding noted from Hemoptysis as well from sp4 swallowed blood. Treated using rhino rocket, Bilateral Rhino Rocket applied. Bleeding stopped. Patient tolerated procedure without complications. MDM: 02:25 Patient medically screened. sp4 03:08 Data reviewed: vital signs, nurses notes, EMS record, old medical records, lab test sp4 result(s), EKG, radiologic studies, plain films. ED course: chest X ray - FINDINGS: Single view of the chest was obtained portable. No prior films are available for comparison. The heart is enlarged. The thoracic aorta is tortuous with intimal calcification. The pulmonary vasculature is slightly prominent. Patient is slumped towards the left. Minimal blunting bilateral CP angle suggesting the possibility of a small trace bilateral pleural effusions. The rest of the soft tissue and bony structures demonstrate to be unremarkable. IMPRESSION: Cardiomegaly with small trace bilateral pleural effusions. Electronically signed by: Miguel Alegria MD 02/15/2023 2:44 AM. 03:08 Differential Diagnosis altered mental status, flu, Posterior epistaxis, anterior sp4 epistaxis. Consideration of Admission/Observation Escalation of care including admission/observation considered. Management of patient was discussed with the following: Hospitalist: Discussed with admission team. 03:08 ED course: After bilateral Rhino Rocket application epistaxis is stopped. Patient will sp4 require admission for pain control secondary to bilateral Rhino Rocket's. ENT is available construction specialist.. 02/15 01:50 Order name: Basic Metabolic Panel; Complete Time: 03:04 4 02/15 01:50 Order name: CBC with Diff; Complete Time: 03:04 4 02/15 01:50 Order name: LFT's; Complete Time: 03:04 4 02/15 01:50 Order name: Magnesium; Complete Time: 03:04 4 02/15 01:50 Order name: NT PRO-BNP; Complete Time: 03:04 4 02/15 01:50 Order name: PT-INR; Complete Time: 03:04 4 02/15 01:50 Order name: Troponin HS; Complete Time: 03:04 4 02/15 01:50 Order name: XRAY Chest (1 view) 02/15 01:50 Order name: EKG; Complete Time: 01:51 4 02/15 01:50 Order name: Saline Lock; Complete Time: 02:4 02/15 01:50 Order name: Cardiac monitoring; Complete Time: 02:4 02/15 01:50 Order name: EKG - Nurse/Tech; Complete Time: 02:4 02/15 01:50 Order name: Labs collected and sent; Complete Time: 02:4 02/15 01:50 Order name: O2 Per Protocol; Complete Time: 02:4 02/15 01:50 Order name: O2 Sat Monitoring; Complete Time: 02:02/15 01:50 Order name: NPO; Complete Time: 01:51 EC:25 Rate is 96 beats/min. Rhythm is irregularly irregular, A fib. QRS Matthews is Normal. QRS sp4 interval is normal. No ST changes noted. Clinical impression: No evidence of ischemia. Interpreted by me. Administered Medications: 02:16 Drug: D5-1/2 NS IV 1000 ml Route: IV; Rate: 75 ml/hr; Site: right hand; rv 03:45 Follow up: Response: No adverse reaction; IV Status: Infusion continued upon admission; as6 IV Intake: 100ml 02:17 Drug: morphine IVP or IV 4 mg Route: IVP; Infused Over: 4 mins; Site: right hand; rv 03:45 Follow up: Response: No adverse reaction as6 02:17 Drug: Ondansetron IVP 4 mg Route: IVP; Site: right hand; rv 03:45 Follow up: Response: No adverse reaction as6 Disposition Summary: 02/15/23 03:09 Hospitalization Ordered Hospitalization Status: Observation sp4 Provider: Krish Baxter sp4 Location: Telemetry/MedSurg (observation) sp4 Condition: Stable sp4 Problem: new sp4 Symptoms: have improved sp4 Bed/Room Type: Standard sp4 Room Assignment: 206(02/15/23 03:21) mw Diagnosis - Epistaxis sp4 - Acute posterior epistaxis right side, physical deconditioning, diastolic heart sp4 failure Forms: - Medication Reconciliation Form sp4 - SBAR form sp4 - Leadership Thank You Letter sp4 Signatures: Dispatcher [employer] Jacinda Herron RN RN Juanjo Tyson RN RN Loren Pinzon RN JOSE MIGUEL [email or web address] Erwin Houston MD MD sp4 Boo Ayala RN as6 Corrections: (The following items were deleted from the chart) 03:21 03:09 sp4 mw
--- NOTE | 2023-02-15 03:34 | P.HP ---
Certification for Inpatient Patient admitted to: Observation With expected LOS: <2 Midnights Patient will require the following post-hospital care: None Practitioner: I am a practitioner with admitting privileges, knowledge of patient current condition, hospital course, and medical plan of care. Services: Services provided to patient in accordance with Admission requirements found in Title 42 Section 412.3 of the Code of Federal Regulations <Pola Chatterjee - Last Filed: 02/15/23 03:28> Patient History Date of Service: 02/15/23 Reason for admission: Epistaxis History of Present Illness: 73-year-old female with history of dementia, atrial fibrillation on chronic anticoagulation, diabetes mellitus type 2, hypertension, hyperlipidemia, chronic diastolic congestive heart failure, previous CVA presents emergency department with chief complaint of epistaxis. [facility] for [facility] A-fib developed significant epistaxis this evening primarily affecting the right nare. In the ER bilateral Rhino Rocket's were placed which has resolved epistaxis currently. Initial hemoglobin 12.0 hematocrit 35.9 INR 2.0 creatinine 1.3 GFR 40 glucose 114 BNP 871 chest x-ray with small pleural effusions. ED provider wishes to admit for pain control/serial H&H, epistaxis/ENT consult. - Past Medical/Surgical History Diabetic: No -: Meniere's disease -: HTN -: Atrial fibrillation -: Dementia -: Diabetes mellitus type 2 -: Hyperlipidemia -: hernia surgery Psychosocial/ Personal History: [facility] - Social History Alcohol use: No CD- Drugs: No Caffeine use: Yes Place of Residence: Home <Pola Chatterjee - Last Filed: 02/15/23 03:28> Date of Service: 02/15/23 <Krish Baxter - Last Filed: 02/15/23 14:53> Allergies hydrocodone Adverse Reaction (Verified 04/09/21 20:17) Itching Home Medications: Acetaminophen [Tylenol Extra Strength] 500 mg PO Q6H PRN 01/02/21 Amlodipine Besylate 2.5 mg PO DAILY 01/02/21 Duloxetine HCl [Cymbalta] 90 mg PO BEDTIME 01/02/21 Meclizine HCl 12.5 mg PO TID PRN 01/02/21 Sotalol HCl [Sotalol AF] 80 mg PO TID 01/02/21 Lidocaine 4% Patch [Lidoderm 5% Patch*] 1 patch TOP DAILY #30 patch 04/13/21 Valsartan [Diovan*] 160 mg PO BID #60 tab 04/13/21 Buspirone HCl [Buspar] 5 mg PO TID 02/15/23 Codeine/APAP [Tylenol #3*] 1 tab PO TID PRN 02/15/23 Cyclobenzaprine [Flexeril] 10 mg PO TID PRN 02/15/23 Furosemide 40 mg PO BID 02/15/23 Gabapentin 300 mg PO TID 02/15/23 Lactobacillus Acidophilus [Acidophilus] 2 tab.sr PO BID 02/15/23 Loperamide [Imodium] 2 mg PO Q6HP PRN 02/15/23 Loratadine [Claritin] 10 mg PO BEDTIME 02/15/23 Mirabegron [Myrbetriq] 50 mg PO DAILY 02/15/23 Potassium Chloride [K-Dur] 20 meq PO BID 02/15/23 Rivaroxaban [Xarelto] 1 tab PO BEDTIME 02/15/23 Review of Systems 10-point ROS is otherwise unremarkable ENT: Other (Epistaxis) <Pola Chatterjee - Last Filed: 02/15/23 03:28> Physical Examination - Physical Exam General: Alert, In no apparent distress, Oriented x2 HEENT: Atraumatic, PERRLA, Mucous membr. moist/pink, Other (Bilateral Rhino Rocket's in place, no current bleeding noted), EOMI, Sclerae nonicteric Neck: Supple, 2+ carotid pulse no bruit, No LAD, Without JVD or thyroid abnormality Respiratory: Clear to auscultation bilaterally, Normal air movement Cardiovascular: Regular rate/rhythm, Normal S1 S2 Gastrointestinal: Normal bowel sounds, No tenderness Musculoskeletal: No tenderness Integumentary: No rashes Neurological: Normal gait, Normal speech, Normal strength at 5/5 x4 extr, Normal tone, Normal affect Lymphatics: No axilla or inguinal lymphadenopathy - Studies Laboratory Data (last 24 hrs) 02/15/23 02/15/23 02/15/23 02:13 02:13 02:13 WBC 7.50 Hgb 12.0 Hct 35.9 L Plt Count 276 PT 22.0 H INR 2.00 Sodium 137 Potassium 4.3 BUN 29 H Creatinine 1.38 H Glucose 114 H Magnesium 2.4 Total Bilirubin 0.3 AST 16 ALT 23 Alkaline Phosphatase 98 <Pola Chatterjee - Last Filed: 02/15/23 03:28> - Studies Laboratory Data (last 24 hrs) 02/15/23 02/15/23 02/15/23 02:13 02:13 02:13 WBC 7.50 Hgb 12.0 Hct 35.9 L Plt Count 276 PT 22.0 H INR 2.00 Sodium 137 Potassium 4.3 BUN 29 H Creatinine 1.38 H Glucose 114 H Magnesium 2.4 Total Bilirubin 0.3 AST 16 ALT 23 Alkaline Phosphatase 98 <Krish Baxter - Last Filed: 02/15/23 14:53> Assessment and Plan - Plan Assessment: Epistaxis complicated with use of chronic anticoagulation Atrial fibrillation on coagulation Diabetes mellitus type [id number] Hypertension Hyperlipidemia Dementia History of CVA Plan: Epistaxis complicated with use of chronic anticoagulation Bilateral Rhino Rocket's placed in ED, epistaxis currently controlled. Hold Xarelto, ENT consult. Trend H&H. ENT reports significant bleeding. Atrial fibrillation on coagulation Hold Xarelto continue other home medications. Diabetes mellitus type [id number] Hypertension Hyperlipidemia Dementia History of CVA Continue home medications, hold antiplatelet/anticoagulants. DVT PPX: SCD Code status: Full Discharge Plan: Snf Plan to discharge in: 24 Hours - Advance Directives Does patient have a Living Will: No Does patient have a Durable POA for Healthcare: No - Code Status/Comfort Care Code Status Assessed: Yes (Full code) Critical Care: No Time Spent Managing Pts Care (In Minutes): 55 <Pola Chatterjee - Last Filed: 02/15/23 03:28> Physician Review: Patient Assessed, Agree with Above Assessment and Plan <Krish Baxter - Last Filed: 02/15/23 14:53>
[2023-02-15 04:59] VITALS: BMI 35.2
[2023-02-15] MEDS ORDERED: ONDANSETRON 4 MG/2 ML VIAL IV PRN (08:00)
[2023-02-15] MEDS ORDERED: PNEUMOCOCCAL VACCINE 0.5 ML IMVAC ONE (08:00)
[2023-02-15] MEDS: MORPHINE 2 MG/ML SYR IV PRN ×3 (08:52→23:30)
--- NOTE | 2023-02-15 11:09 | RAD REPORT ---
EXAM DESCRIPTION: RAD - Chest Single View - 02/15/2023 2:29 am CLINICAL HISTORY: 73 years, Female, CHEST PAIN COMPARISON: None FINDINGS: Single view of the chest was obtained portable. No prior films are available for compariso n. The heart is enlarged. The thoracic aorta is tortuous with intimal calcification. The pulmonary va sculature is slightly prominent. Patient is slumped towards the left. Minimal blunting bilateral CP a ngle suggesting the possibility of a small trace bilateral pleural effusions. The rest of the soft tissue and bony structures demonstrate to be unremarkable. IMPRESSION: Cardiomegaly with small trace bilateral pleural effusions. Electronically signed by: Miguel Alegria MD 02/15/2023 2:44 AM CDT Due to temporary technical issues with the PACS/Fluency reporting system, reports are being signed by the in house radiologist without review as a courtesy to ensure prompt reporting. The interpreting r adiologist is fully responsible for the content of the report.
--- NOTE | 2023-02-15 13:04 | EKG ---
Test Date: 2023-02-15 Test Time: 02:15:58 Bottle Tester: LEONOR MEASUREMENT RESULTS: Intervals: Rate: 96 DE: QRSD: 76 QT: 380 QTc: 480 [place]: P: DE: QRS: 109 T: 49 INTERPRETIVE STATEMENTS: Atrial fibrillation Low voltage QRS Septal infarct, age undetermined Lateral infarct, age undetermined Abnormal ECG Compared to ECG 07/24/2021 17:27:53 Accelerated junctional rhythm no longer present Ventricular premature complex(es) no longer present Right superior axis no longer present Myocardial infarct finding still present Electronically Signed On 02-15-23 13:03:03 CDT by Matheus Banda
--- NOTE | 2023-02-15 17:57 | P.PN ---
Date of Service: 02/15/23 ENT Consultation Please see dictated report. Impression: 1. Acute bilateral epistaxis s/p rhinorocket. Currently stable. Xarelto recently d/c'd. Plan: 1. Recommend keeping packs for now. I usually like to keep the packs in at least 48 hours before attempting to remove as patient's Xarelto has recently been d/c'd. 2. Will attempt removal on Monday02/17/23 and monitor for rebleed. 3. Cautery in the OR possible if she rebleeds. Thank you for this most interesting consultation.
[2023-02-16] MEDS: MORPHINE 2 MG/ML SYR IV PRN ×6 (02:52→20:46)
[2023-02-16 03:22] LABS: Absolute Lymphocytes (CBC) 1.1 K/uL (0.7-4.9); Hematocrit 32.5 % (36.0-45.0); Lymphocytes % 9.4 % (15.3-44.8); MCV 89.5 fL (80-100); MPV 8.5 fL (7.6-11.3); Platelets 255 thou/uL (152-406); RBC Red Blood Cell Count 3.63 M/uL (3.86-4.86)
[2023-02-16] MEDS ORDERED: HALOPERIDOL LACT 5 MG/ML INJ IV ONE (04:32)
[2023-02-16 08:38] LABS: Urine Bacteria None Seen /HPF (<20); Urine Bilirubin NEGATIVE (Negative); Urine Blood 2+ (Negative); Urine Clarity Clear (Clear); Urine Color Light-Yellow (Yellow); Urine Glucose NEGATIVE (Negative); Urine Protein NEGATIVE (Negative); Urine RBC <5 /HPF (None Seen); Urine Urobilinogen Normal (Normal)
[2023-02-16] MEDS ORDERED: VANCOMYCIN 2 GM in NA CHLORIDE 0.9% 500 ML IVPB ONE (12:00)
--- NOTE | 2023-02-16 12:27 | RAD REPORT ---
EXAM DESCRIPTION: CT - Head Brain Wo Cont - 02/16/2023 12:03 pm CLINICAL HISTORY: Alteration of awareness/confusion COMPARISON: 2020 TECHNIQUE: Computed axial tomography of the head was obtained. IV contrast was not requested. All CT scans are performed using dose optimization technique as appropriate and may include automated exposure control or mA/KV adjustment according to patient size. FINDINGS: An intracranial bleed is not seen No extra-axial fluid collection is noted. Mild to moderate cerebral atrophy. Mild prominence of the ventricles Moderate ethmoid sinusitis IMPRESSION: Mild prominence of the ventricles probably secondary to cerebral atrophy No acute intracranial abnormality seen If patient's symptoms persist MRI of the brain would be recommended
--- NOTE | 2023-02-16 12:55 | RAD REPORT ---
EXAM DESCRIPTION: CT - Thorax Wo Con - 02/16/2023 12:06 pm CLINICAL HISTORY: sob/hypoxia COMPARISON: none TECHNIQUE: Computed axial tomography of the chest was obtained. Contrast was not requested. All CT scans are performed using dose optimization technique as appropriate and may include automated exposure control or mA/KV adjustment according to patient size. FINDINGS: The evaluation of mediastinum, juan and vessels is limited secondary to lack of IV contras t administration. Mild bilateral interstitial lung opacities. Mild bibasilar atelectasis. Small pleural effusions. Cardiomegaly. Moderate hiatal hernia IMPRESSION: These findings probably indicate mild CHF
--- NOTE | 2023-02-16 13:16 | CON ---
Date of Consultation: 02/15/2023 Chief Complaint: Nosebleed. History Of Present Illness: The patient is a 73-year-old female with history of dementia, atrial fib rillation on chronic anticoagulation, diabetes type 2, hypertension, hyperlipidemia, chronic diastoli c congestive heart failure and previous CVA, who presented to the emergency department from a [facility] with significant epistaxis involving bilateral nasal cavities, right greater than left. The ER physician inserted 2 Rhino Rockets and she was admitted for observation. I was consulted for [facility] r evaluation and recommendations. Upon arrival to bedside, the patient is in [id number] distre ss due to the discomfort caused by the Rhino Rockets and she is trying to pull them out and in fact, the left one is almost out of the left nasal cavity. She does not respond to any my questions. She is coughing up old blood, I do not see any fresh blood. No other history is able to be obtained. Past Medical And Surgical History: Meniere disease, hypertension, atrial fibrillation, dementia, susanna betes mellitus type 2, hyperlipidemia, CVA, hernia surgery. Psychosocial And Personal History: The patient is a resident of a nearby [facility]. Social History: The patient uses caffeine, but does not use alcohol or drugs. Allergies: HYDROCODONE. Home Medications: Acetaminophen, amlodipine besylate, duloxetine, meclizine, sotalol, lidocaine 4% p atch, valsartan, buspirone, Tylenol No.3, cyclobenzaprine, furosemide, gabapentin, lactobacillus acid ophilus, loperamide, loratadine, mirabegron, potassium chloride, rivaroxaban. Review of Systems: Head: Negative for trauma or headache. Eyes: Negative for drainage or blurred/double vision. Ears: Negative for drainage or pain. Nose: Positive for bilateral nasal cavity nosebleeds. Oral Cavity: Negative for sore throat or dysphagia. Physical Examination: General: The patient is in mild distress due to nasal discomfort. The patient is not responding to any of my questions, but she is awake and definitely alert. Head: Atraumatic, normocephalic. Eyes: PERRLA/EOMI. Ears: Deferred. Nose: Right nasal Rhino Rocket intact and left nasal Rhino Rocket almost extruded completely. I elvira nserted the Rhino Rocket and reinforced both of them with silk tape to the cheek. No evidence of fra nk bright red blood or blood clots from the nasal cavities. Oral Cavity: Minimal old dark blood. No evidence of large blood clots or active bleeding. Neck: Supple. Trachea midline. Laboratory Data: Hemoglobin is 12.0 and hematocrit 35.9 and platelets are 276. Diagnoses: Acute bilateral nasal epistaxis, status post bilateral Rhino Rocket placement - currently stable. Recommendations: 1.Xarelto has been held and we will continue to hold for the next 48 to 72 hours. 2.We will attempt Rhino Rocket removal in several days and monitor the patient. 3.Possible trip to the OR for cauterization. 4.Recommend continuing pain medicine for discomfort. Thank you for this most interesting consultation. DUY/CAROLYN Voice ID: [id number] Report ID: [id number]
[2023-02-16] MEDS: PIPER TAZO 3.375 GM in NA CHLORIDE 0.9% 100 ML IV SCH ×2 (13:32→20:56)
--- NOTE | 2023-02-16 18:09 | P.PN ---
Subjective Date of Service: 02/16/23 Chief Complaint: Epistaxis This morning, she has been running low-grade temperatures. She appears uncomfortable. She is not verbal at this time. Baseline mental status is unknown at this time. Review of Systems is unable to be obtained Physical Examination - Vital Signs Temperature: 99.5 F Blood Pressure: 140/75 Pulse: 132 Respirations: 20 Pulse Ox (%): 94 - Physical Exam General: Mild distress (appears uncomfortable) HEENT: Atraumatic, Sclerae nonicteric Neck: JVD not distended Respiratory: Clear to auscultation bilaterally, Diminished Cardiovascular: No edema, Regular rate/rhythm, Normal S1 S2, No gallops, No rubs, No murmurs Gastrointestinal: Normal bowel sounds, Soft and benign, Non-distended, No tenderness, No rebound, No guarding Musculoskeletal: No clubbing Integumentary: No rashes Neurological: Normal speech, Normal affect - Studies Laboratory Data (last 24 hrs) 02/16/23 02/16/23 02/15/23 02:43 02:43 21:02 WBC 11.80 H Hgb 11.0 L 11.6 L Hct 32.5 L Plt Count 255 Sodium 138 Potassium 4.0 BUN 23 H Creatinine 1.21 H Glucose 141 H Assessment And Plan - Plan # Epistaxis # Atrial Fibrillation on Rivaroxaban - Consulted ENT and spoke with Dr. Horner - recommendations appreciated - S/P bilateral Rhino Rockets - Plan for possible removal on 02/17 or 02/18 - Hold home rivaroxaban - Serial H&H - Hgb: 12.0 -> 11.3 -> 11.4 -> 11.6 -> 11.0 # Suspect Delirium superimposed on Dementia # Suspect Acute Decompensated Congestive Heart Failure with Unknown Ejection Fraction - Required haloperidol overnight - Has low-grade temperature and tachycardia. No clear infectious source at this time - Chest x-ray concerning for possible mild pulmonary edema - Will start low-dose furosemide - Started empiric vancomycin + piperacillin-tazobactam - CT head, CT chest, urinalysis, transthoracic echocardiogram requested # Type II Diabetes Mellitus - Correction scale insulin # History of Cerebrovascular Accident # Hypertenion # Hyperlipidemia - Reconcile home medications once verified Krish Baxter M.D.
[2023-02-16] MEDS ORDERED: HALOPERIDOL LACT 5 MG/ML INJ IV PRN (20:44)
[2023-02-16] MEDS: FUROSEMIDE 20 MG/ 2ML VIAL IV SCH (20:55)
[2023-02-16] MEDS ORDERED: METOPROLOL TARTRATE 5 MG/5 ML INJ IV STA (22:23)
[2023-02-16] MEDS: SOTALOL HCL 80 MG TAB PO SCH (23:00)
[2023-02-17] MEDS: LORazepam 2 MG/ML VIAL IV PRN ×2 (02:43→18:42)
[2023-02-17] MEDS ORDERED: METOPROLOL TARTRATE 5 MG/5 ML INJ IV STA ×3 (03:18→20:33)
[2023-02-17 03:50] LABS: Absolute Lymphocytes (CBC) 1.3 K/uL (0.7-4.9); Hematocrit 32.2 % (36.0-45.0); Lymphocytes % 8.5 % (15.3-44.8); MCV 90.2 fL (80-100); MPV 8.7 fL (7.6-11.3); Platelets 263 thou/uL (152-406); RBC Red Blood Cell Count 3.57 M/uL (3.86-4.86)
[2023-02-17 04:05] LABS: Potassium 3.7 mEq/L (3.5-5.1)
[2023-02-17] MEDS: PIPER TAZO 3.375 GM in NA CHLORIDE 0.9% 100 ML IV SCH ×3 (04:32→20:16)
[2023-02-17] MEDS: FUROSEMIDE 20 MG/ 2ML VIAL IV SCH ×2 (08:40→16:31)
[2023-02-17] MEDS: SOTALOL HCL 80 MG TAB PO SCH ×3 (08:43→20:16)
[2023-02-17] MEDS: VANCOMYCIN 1.25 GM in NA CHLORIDE 0.9% 250 ML IVPB SCH (10:50)
--- NOTE | 2023-02-17 13:55 | P.PN ---
Subjective Date of Service: 02/17/23 Chief Complaint: Epistaxis Overnight, she self-removed both of her nasal package. There has been no rebleeding. She appears comfortable this morning. No further history available at this time. Review of Systems is unable to be obtained Physical Examination - Vital Signs Temperature: 98.4 F Blood Pressure: 119/63 Pulse: 125 Respirations: 18 Pulse Ox (%): 90 Assessment And Plan - Plan - Physical Exam General: No distress HEENT: Atraumatic, Sclerae nonicteric Respiratory: Clear to auscultation bilaterally, Diminished Cardiovascular: No edema, Regular rate/rhythm, No murmurs Gastrointestinal: Normal bowel sounds, Soft, Non-distended, No tenderness Musculoskeletal: No clubbing Integumentary: No rashes Neurological: Normal speech, Normal affect # Epistaxis - Consulted ENT and spoke with Dr. Horner - recommendations appreciated - S/P bilateral Rhino Rockets and self-removal - Currently not bleeding, but if re-bleeding, Dr. Horner planning for endoscopy with cauterization - Hold home rivaroxaban - Serial H&H - Hgb: 12.0 -> 11.3 -> 11.4 -> 11.6 -> 11.0 -> 10.8 # Atrial Fibrillation with Rapid Ventricular Response - Currently not taking sotalol due to mental status - We will utilize as needed IV metoprolol doses - Hold anticoagulation given epistaxis # Suspect Delirium superimposed on Dementia # Suspect Acute Decompensated Congestive Heart Failure with Unknown Ejection Fraction - Required haloperidol overnight - Has low-grade temperature and tachycardia. No clear infectious source at this time - Chest x-ray concerning for possible mild pulmonary edema - Will start low-dose furosemide - Started empiric vancomycin + piperacillin-tazobactam - CT head = "mild prominence of the ventricles probably secondary to cerebral atrophy. No acute intracranial abnormality seen. If patient's symptoms persist MRI of the brain would be recommended" - CT chest = "these findings probably indicate mild CHF" - Urinalysis = unremarkable - Transthoracic echocardiogram requested # Type II Diabetes Mellitus - Correction scale insulin # History of Cerebrovascular Accident # Hypertenion # Hyperlipidemia - Reconcile home medications once verified Krish Baxter M.D.
[2023-02-17] MEDS: SOD CHLORIDE 0.65% NASAL SPRAY NAS SCH ×2 (15:11→20:17)
[2023-02-17] MEDS ORDERED: HALOPERIDOL LACT 5 MG/ML INJ IV ONE (15:22)
[2023-02-18] MEDS: LORazepam 2 MG/ML VIAL IV PRN (01:40)
[2023-02-18 03:49] LABS: Hematocrit 31.4 % (36.0-45.0); Lymphocytes % 8.7 % (15.3-44.8); MCV 90.2 fL (80-100); MPV 8.5 fL (7.6-11.3); Platelets 235 thou/uL (152-406); RBC Red Blood Cell Count 3.47 M/uL (3.86-4.86)
[2023-02-18] MEDS: PIPER TAZO 3.375 GM in NA CHLORIDE 0.9% 100 ML IV SCH ×3 (03:57→19:32)
[2023-02-18] MEDS ORDERED: POTASSIUM 25 MEQ EFFERV TAB PO ONE ×2 (05:08→13:00)
[2023-02-18] MEDS ORDERED: METOPROLOL TARTRATE 5 MG/5 ML INJ IV STA (05:54)
[2023-02-18] MEDS: FUROSEMIDE 20 MG/ 2ML VIAL IV SCH ×2 (10:06→16:02)
[2023-02-18] MEDS: SOTALOL HCL 80 MG TAB PO SCH ×3 (10:07→20:50)
[2023-02-18] MEDS: SOD CHLORIDE 0.65% NASAL SPRAY NAS SCH ×2 (10:07→20:51)
[2023-02-18] MEDS: VANCOMYCIN 1.25 GM in NA CHLORIDE 0.9% 250 ML IVPB SCH (13:12)
--- NOTE | 2023-02-18 17:00 | CON ---
Date of Consultation: 02/18/2023 Reason For Consultation: Atrial fibrillation with rapid ventricular response. History Of Present Illness: A 73-year-old female with history of dementia, atrial fibrillation on an ticoagulants, diabetes, hypertension, dyslipidemia, diastolic heart failure, who presented with epist axis. She is on anticoagulants for atrial fibrillation. Pressure was applied for epistaxis and reso lved. Hemoglobin stable and she feels better now. Past Medical History: As outlined above in the HPI. Medications: Refer to reconciliation sheet for detailed list. Allergies: HYDROCODONE. Family History: No premature coronary artery disease or cancer. Social History: Does not smoke or drink. Does not use any drugs. Review of Systems: All systems reviewed and they were negative except what mentioned in HPI. Physical Examination: Vital Signs: Reviewed. Head and Neck: Pupils are equal, reactive to light. Intact eye movements. No JVD. No cervical lym phadenopathy. Neck is supple. Thyroid is not enlarged. Lungs: Clear to auscultation bilaterally. No rhonchi, rales, or crackles. No accessory muscle use. Heart: Irregularly irregular. No extra sounds. Abdomen: Soft, nontender. Bowel sounds positive. No organomegaly. No masses or hernia. No rigidi ty or rebound. Extremities: No edema, clubbing, cyanosis. Intact pulses. SKIN: No rash or nodules. Neurologic: Alert, awake with confusion. She has dementia. Lymph Nodes: No cervical, axillary, or inguinal lymphadenopathy. Investigations: BUN 21, creatinine 1.22. Hemoglobin 10.7. Assessment And Recommendation: 1.Atrial fibrillation. High CHADS-VASc score. History of stroke. She definitely needs stroke prev ention. However, she had an episode of epistaxis. Recommend continued sotalol. Heart rate is still fast with that, but can use metoprolol IV 5 mg every 1 hour as needed to rate control and also consi shyla adding 25 mg by mouth twice a day, but I recommend to resume anticoagulant with Eliquis at 5 mg t wice a day and arrange for outpatient left atrial appendage closure. 2.Hypertension. Blood pressure is controlled. 3.Chronic renal failure. It has been stable. SR/MODL Voice ID: [id number] Report ID: [id number]
--- NOTE | 2023-02-18 20:49 | P.PN ---
Subjective Date of Service: 02/18/23 Chief Complaint: Epistaxis Her symptoms have improved significantly. She is now alert and oriented x 2 this morning. She denies any symptoms. She is in atrial fibrillation wit rapid ventricular response. Appreciate Cardiology recommendations. Review of Systems 10-point ROS is otherwise unremarkable ENT: Other (epistaxis) Physical Examination - Vital Signs Temperature: 98.4 F Blood Pressure: 124/82 Pulse: 119 Respirations: 18 Pulse Ox (%): 95 Assessment And Plan - Plan - Physical Exam General: No distress, oriented x2 HEENT: Atraumatic, Sclerae nonicteric Respiratory: Clear to auscultation bilaterally, Diminished Cardiovascular: No edema, Regular rate/rhythm, No murmurs Gastrointestinal: Normal bowel sounds, Soft, Non-distended, No tenderness Musculoskeletal: No clubbing Integumentary: No rashes Neurological: Normal speech, Normal affect # Epistaxis - Consulted ENT and spoke with Dr. Horner - recommendations appreciated - S/P bilateral Rhino Rockets and self-removal - Currently not bleeding, but if re-bleeding, Dr. Horner planning for endoscopy with cauterization - Hold home rivaroxaban # Atrial Fibrillation with Rapid Ventricular Response - Consulted Cardiology - recommendations appreciated - Currently not taking sotalol due to mental status - We will utilize as needed IV metoprolol doses - Hold anticoagulation given epistaxis # Suspect Delirium superimposed on Dementia # Suspect Acute Decompensated Congestive Heart Failure with Unknown Ejection Fraction - Has low-grade temperature and tachycardia. No clear infectious source at this time - Chest x-ray concerning for possible mild pulmonary edema - Will start low-dose furosemide - Started empiric vancomycin + piperacillin-tazobactam - CT head = "mild prominence of the ventricles probably secondary to cerebral atrophy. No acute intracranial abnormality seen. If patient's symptoms persist MRI of the brain would be recommended" - CT chest = "these findings probably indicate mild CHF" - Urinalysis = unremarkable - Transthoracic echocardiogram requested # Type II Diabetes Mellitus - Correction scale insulin # History of Cerebrovascular Accident # Hypertenion # Hyperlipidemia - Reconcile home medications once verified Krish Baxter M.D.
[2023-02-19] MEDS: PIPER TAZO 3.375 GM in NA CHLORIDE 0.9% 100 ML IV SCH ×3 (03:40→20:48)
[2023-02-19 03:55] LABS: Potassium 3.1 mEq/L (3.5-5.1)
[2023-02-19] MEDS ORDERED: POTASSIUM 25 MEQ EFFERV TAB PO ONE ×2 (04:49→13:30)
[2023-02-19] MEDS ORDERED: ACETAMINOPHEN 325 MG TABLET PO PRN (05:35)
[2023-02-19] MEDS: SOD CHLORIDE 0.65% NASAL SPRAY NAS SCH ×2 (09:36→20:48)
[2023-02-19] MEDS: SOTALOL HCL 80 MG TAB PO SCH ×3 (09:36→20:48)
[2023-02-19] MEDS: FUROSEMIDE 20 MG/ 2ML VIAL IV SCH ×2 (09:36→17:32)
[2023-02-19] MEDS: VANCOMYCIN 1.25 GM in NA CHLORIDE 0.9% 250 ML IVPB SCH (11:26)
--- NOTE | 2023-02-19 16:46 | P.PN ---
Subjective Date of Service: 02/19/23 Chief Complaint: Epistaxis This morning, she is now alert and oriented x 1 to self only. She is unable to tell me her location or the date. Per RN, who was able to speak to [place], she is normally "alert and oriented." There has been no significant bleeding/epistaxis per RN. She remains in atrial fibrillation with heart rates in the 100-110 range. Review of Systems is unable to be obtained Physical Examination - Vital Signs Temperature: 97.7 F Blood Pressure: 119/67 Pulse: 109 Respirations: 14 Pulse Ox (%): 94 Assessment And Plan - Plan - Physical Exam General: No distress, oriented x1 HEENT: Atraumatic, Sclerae nonicteric Respiratory: Clear to auscultation bilaterally, Diminished Cardiovascular: No edema, Regular rate/rhythm, No murmurs Gastrointestinal: Normal bowel sounds, Soft, Non-distended, No tenderness Musculoskeletal: No clubbing Integumentary: No rashes Neurological: Normal speech, Normal affect # Epistaxis - Consulted ENT and spoke with Dr. Horner - recommendations appreciated - S/P bilateral Rhino Rockets and self-removal - Currently not bleeding, but if re-bleeding, Dr. Horner planning for endoscopy with cauterization - Hold home rivaroxaban # Atrial Fibrillation with Rapid Ventricular Response - Consulted Cardiology - recommendations appreciated - Currently not taking sotalol due to mental status - We will utilize as needed IV metoprolol doses - Hold anticoagulation given epistaxis # Suspect Delirium superimposed on Dementia # Suspect Acute Decompensated Congestive Heart Failure with Unknown Ejection Fraction - Has low-grade temperature and tachycardia. No clear infectious source at this time - Chest x-ray concerning for possible mild pulmonary edema - Will start low-dose furosemide - Started empiric vancomycin + piperacillin-tazobactam - CT head = "mild prominence of the ventricles probably secondary to cerebral atrophy. No acute intracranial abnormality seen. If patient's symptoms persist MRI of the brain would be recommended" - CT chest = "these findings probably indicate mild CHF" - Urinalysis = unremarkable - Transthoracic echocardiogram requested # Type II Diabetes Mellitus - Correction scale insulin # History of Cerebrovascular Accident # Hypertension # Hyperlipidemia - Reconcile home medications once verified Krish Baxter M.D.
--- NOTE | 2023-02-19 18:45 | P.PN ---
Date of Service: 02/20/23 Subjective: Physical Exam: Vitals: Reviewed Gen: Alert, Orientedx1, NAD CV: regular rate & rhythm, no edema Pulm: Respirations are clear bilaterally, Diminished Abd: soft, nontender, nondistended MSK: no joint tenderness Integumentary: No rashes Neuro: normal speech, normal affect Problem List: Epistaxis Atrial Fibrillation with RVR Suspect Delirium superimposed on Dementia Suspect Acute Decompensated CHF DM2 History of Cerebrovascular Accident Hypertension Hyperlipidemia Plan: ENT consulted s/p bilateral Rhino Rockets and self-removal Currently not bleeding, but if re-bleeding, Dr. Horner planning for endoscopy with cauterization Cardiology consulted continue sotalol Hold anticoagulation given epistaxis Continue IV lasix continue empiric vancomycin / zosyn echo ordered sliding scale insulin confirm home medications, restart as appropriate
--- NOTE | 2023-02-19 19:43 | PN ---
Date of Progress Note: 02/19/2023 Subjective: Seen by bedside. Doing better clinically. Review of Systems: No chest pain, shortness of breath, orthopnea, cough. No nausea, vomiting, diarrhea. All other syst ems reviewed and they were negative. Physical Examination: Vital Signs: Reviewed. Head and Neck: Pupils are equal, reactive to light. Intact eye movements. No JVD. No cervical lym phadenopathy. Neck is supple. Thyroid is not enlarged. Lungs: Clear to auscultation bilaterally. No rhonchi, wheezing, or crackles. No accessory muscle u se. Heart: Irregularly irregular. No extra sounds. Abdomen: Soft, nontender. Bowel sounds positive. No organomegaly. No masses or hernia. No rigidi ty or rebound. Extremities: No clubbing or cyanosis. Intact pulses. Skin: No rash. Neurologic: Alert, awake, oriented x3. No acute focal deficits appreciated. Investigations: BUN 20, creatinine 1.19, hemoglobin is 10.7. Assessment And Recommendations: 1.Atrial fibrillation with rapid ventricular response, on sotalol again now and her heart rate is im proving. Continue current management. I will recommend to start low-dose Eliquis 2.5 mg twice a day and while she is in the hospital to evaluate response. She had epistaxis first and if the nosebleed comes back, then to hold it until a Watchman can be done, but this patient has advanced dementia, so I would like to discuss this further with the family before proceeding with an aggressive workup on her. 2.Hypertension. Blood pressure is controlled. 3.Chronic renal failure, resolved. Continue current therapy. SR/MODL Voice ID: [id number] Report ID: [id number]
[2023-02-20] MEDS: LORazepam 2 MG/ML VIAL IV PRN (01:03)
[2023-02-20] MEDS ORDERED: POTASSIUM CL SA 10 MEQ TAB PO ONE ×2 (04:02→12:23)
[2023-02-20] MEDS: PIPER TAZO 3.375 GM in NA CHLORIDE 0.9% 100 ML IV SCH ×3 (04:24→20:00)
[2023-02-20] MEDS: SOTALOL HCL 80 MG TAB PO SCH ×2 (09:01→14:25)
[2023-02-20] MEDS: SOD CHLORIDE 0.65% NASAL SPRAY NAS SCH ×2 (09:02→20:48)
[2023-02-20] MEDS: FUROSEMIDE 20 MG/ 2ML VIAL IV SCH ×2 (09:02→16:36)
[2023-02-20] MEDS: VANCOMYCIN 1.25 GM in NA CHLORIDE 0.9% 250 ML IVPB SCH (11:57)
[2023-02-20] MEDS ORDERED: POTASSIUM CL SA 10 MEQ TAB PO SCH (13:00)
--- NOTE | 2023-02-20 16:46 | PN ---
Date of Progress Note: 02/20/2023 Subjective: Seen by bedside. No new complaints. Review of Systems: No chest pain, shortness of breath, orthopnea, cough. All other systems reviewed and they were negat dany. Physical Examination: Vital Signs: Reviewed. Head and Neck: Pupils are equal, reactive to light. Intact eye movements. No cervical lymphadenopa thy. Neck is supple. Thyroid is not enlarged. Lungs: Decreased breathing sounds. No accessory muscle use or muscle retraction. Heart: Irregularly irregular. No extra sounds. Abdomen: Soft, nontender. Bowel sounds positive. No organomegaly. No masses or hernia. No rigidi ty or rebound. Extremities: No clubbing or cyanosis. Intact pulses. Skin: No rash. Neurologic: Alert, awake with confusion which is her baseline. Investigations: Potassium today was 3.3, hemoglobin 10.7. Assessment And Recommendations: 1.Atrial fibrillation. Rate is not controlled. I recommend to discontinue sotalol and put her on a n IV amiodarone drip overnight and reassess. 2.Nosebleed which led to discontinuation of anticoagulants. 3.Stroke prevention and probably she will benefit from appendage close in the future. I recommend t o start low-dose Eliquis 2.5 mg twice a day while in the hospital and observe. 4.Hypokalemia. Replace potassium. SR/MODL Voice ID: [id number] Report ID: [id number]
[2023-02-20] MEDS ORDERED: METHYLPREDNISOLONE 40 MG INJ IV ONE (18:27)
[2023-02-20] MEDS ORDERED: AMIODARONE HCL 450 MG in D5W 241 ML IV SCH (19:00)
[2023-02-20] MEDS ORDERED: AMIODARONE HCL 900 MG in Dextrose 5%-Water 482 ML IV SCH (19:00)
[2023-02-20] MEDS: D5W 100 ML IV ONE ×2 (20:27→21:33)
[2023-02-20] MEDS: AMIODARONE IN DEXTROSE,ISO-OSM 360 MG/200 ML BAG IV ONE ×2 (20:27→21:33)
[2023-02-20] MEDS: AMIODARONE HCL 150 MG/3 ML INJ IV ONE ×2 (20:27→21:33)
[2023-02-21] MEDS ORDERED: AMIODARONE IN DEXTROSE,ISO-OSM 360 MG/200 ML BAG IV ONE (03:49)
[2023-02-21] MEDS: PIPER TAZO 3.375 GM in NA CHLORIDE 0.9% 100 ML IV SCH ×2 (04:00→12:00)
[2023-02-21] MEDS: FUROSEMIDE 20 MG/ 2ML VIAL IV SCH ×2 (08:41→16:09)
[2023-02-21] MEDS: SOD CHLORIDE 0.65% NASAL SPRAY NAS SCH ×2 (08:42→21:00)
[2023-02-21] MEDS: VANCOMYCIN 1.25 GM in NA CHLORIDE 0.9% 250 ML IVPB SCH (12:00)
[2023-02-21] MEDS ORDERED: AMIODARONE HCL 900 MG in Dextrose 5%-Water 482 ML IV SCH (15:00)
--- NOTE | 2023-02-21 16:58 | EKG ---
Test Date: 2023-02-18 Test Time: 09:21:14 Lead Sales Consultant: BEKAH Hoyt MEASUREMENT RESULTS: Intervals: Rate: 119 SD: QRSD: 88 QT: 334 QTc: 469 [place]: P: SD: QRS: 102 T: -64 INTERPRETIVE STATEMENTS: Atrial fibrillation with rapid ventricular response Rightward axis Low voltage QRS Septal infarct, age undetermined Abnormal ECG Compared to ECG 02/15/2023 02:15:58 Right-axis deviation now present Myocardial infarct finding still present Electronically Signed On 02-21-23 16:48:02 CDT by Matheus Banda
[2023-02-21] MEDS: METOPROLOL TAR 25 MG TAB PO SCH (18:05)
[2023-02-21 21:25] VITALS: O2SAT 93
[2023-02-22] MEDS: METOPROLOL TAR 25 MG TAB PO SCH (05:46)
[2023-02-22] MEDS ORDERED: METOPROLOL TAR 25 MG TAB PO ONE (07:28)
[2023-02-22] MEDS: FUROSEMIDE 20 MG/ 2ML VIAL IV SCH (07:50)
[2023-02-22] MEDS: SOD CHLORIDE 0.65% NASAL SPRAY NAS SCH (07:51)
[2023-02-22] MEDS ORDERED: AMIODARONE HCL 200 MG TAB PO SCH (09:00)
[2023-02-22] MEDS ORDERED: METOPROLOL TAR 50 MG TAB PO SCH (09:00)
[2023-02-22 12:45] VITALS: BP 136/84; TEMP 98.2
[2023-02-22 14:13] LABS: SARS-CoV-2 Antigen Rapid Res Negative (Negative)
--- NOTE | 2023-02-22 21:01 | PN ---
Date of Progress Note: 02/22/2023 Subjective: Seen by bedside. Heart rate is improved with the increase of metoprolol. Review of Systems: No nausea, vomiting, or chest pain. No fever. All other systems were reviewed, they were negative. Objective: Vital Signs: Reviewed. Head and Neck: Pupils are equal and reactive to light. Intact eye movements. No cervical lymphaden opathy. Neck is supple. Thyroid is not enlarged. Lungs: Decreased breathing sounds bilaterally. No accessory muscle use or muscle retraction. Heart: Irregularly irregular. No extra sounds. Abdomen: Soft, nontender. Bowel sounds positive. No organomegaly. No masses or hernia. No rigidi ty or rebound. Extremities: No clubbing or cyanosis. Intact pulses. Skin: No rash. No nodule. Neurologic: Alert, awake, with confusion. No focal deficits appreciated. Investigations: Labs were reviewed. Assessment And Recommendations: Atrial fibrillation, rate is getting better. Switch amiodarone to 2 00 mg by mouth twice a day. Increase metoprolol to 50 mg twice a day and initiate low-dose Eliquis 2 .5 mg twice a day, which she can be discharged on and follow up as an outpatient. /RUBINAL Voice ID: [id number] Report ID: [id number]
== END 2023-02-22 15:49 | DRG 813 ==
LOC: ER 01:47 → 2ND 03:19 → EDBD 03:19 → OBSVTOIN 02-16 16:01
PROVIDERS: ADMIT Internal Medicine; ATTEND Hospitalist
PROC: 2Y41X5Z Packing of Nasal Region using Packing Material (ICD-10-PCS; principal; 2023-02-16)
DX: D68.32 Hemorrhagic disorder due to extrinsic circulating anticoagulants (principal); I50.33 Acute on chronic diastolic (congestive) heart failure; R04.2 Hemoptysis; F03.918 Unspecified dementia, unspecified severity, with other behavioral disturbance; F03.93 Unspecified dementia, unspecified severity, with mood disturbance; F05 Delirium due to known physiological condition; R04.0 Epistaxis; I11.0 Hypertensive heart disease with heart failure; I48.91 Unspecified atrial fibrillation; E87.6 Hypokalemia; E11.9 Type 2 diabetes mellitus without complications; J30.9 Allergic rhinitis, unspecified; E78.00 Pure hypercholesterolemia, unspecified; M13.861 Other specified arthritis, right knee; M13.862 Other specified arthritis, left knee; T45.515A Adverse effect of anticoagulants, initial encounter; Z68.35 Body mass index [BMI] 35.0-35.9, adult; Z88.5 Allergy status to narcotic agent; Z79.01 Long term (current) use of anticoagulants; Z79.899 Other long term (current) drug therapy; Z20.822 Contact with and (suspected) exposure to COVID-19
CPT/HCPCS: 30901; 36415; 70450; 71045; 71250; 80048; 80076; 80202; 81001; 82947; 83605; 83735; 83880; 84132; 84484; 85018; 85025; 85610; 87040; 87811; 93005; 96361; 96374; 96375; 99285; G0378; J0282; J1630; J1940; J2270; J2405; J2543; J2920; J7040; J7050; J7060; J7799